=== PATIENT | female | born 1960 | race Caucasian/White ===

== ENCOUNTER → 2020-09-15 13:15 | Outpatient (BNVA) | payer MEDICAID, SELFPAY | PROVIDERS: PCP Internal Medicine; Visit Provider Surgery | DX: L98.9 Disorder of the skin and subcutaneous tissue, unspecified (principal); D68.59 Other primary thrombophilia; I10 Essential (primary) hypertension; F17.200 Nicotine dependence, unspecified, uncomplicated; Z79.4 Long term (current) use of insulin; Z79.899 Other long term (current) drug therapy | CPT/HCPCS: 99202 ==

== ENCOUNTER 2020-10-10 07:35 | Outpatient (REF) | payer MEDICAID, SELFPAY ==
[2020-10-10 07:50] VITALS: BP 155/77; PULSE 82; RESP 16; TEMP 36.6; O2SAT 99; BMI 40.2
--- NOTE | 2020-10-10 08:16 | P.OP_ITS ---
Operative Note Operative Note Date of Service: 10/10/20 Narrative: Preop diagnosis: Scalp lesion Postop diagnose: Scalp lesion Procedure: Excision of scalp lesion under local anesthesia Surgeon: Jayce Myers MD Patient is a 60 year female with note of a small, flat ulcerating lesion on the scalp at the parietal area. She wanted this removed. She understood the technique of excision under local anesthesia. She was aware of the risks, benefits, and alternatives She was brought to the minor procedure room and placed in reclining position with the head turned to the left to expose the area of the lesion. This was about a 0.8 cm flat, ulcerating lesion. This area was prepped and draped. Lidocaine 1% was used for local anesthesia. I made an elliptical incision around this lesion using a blade 15. This was carried down through the full- thickness of the skin subcutaneous fat excise the entire lesions was sent as specimen. I closed the incision with full-thickness nylon 3-0 interrupted sutures. Bacitracin dressings were then applied. The patient tolerated procedure well. There were no complication noted. Blood loss about 2 cc. The patient was given discharge instructions and will be seen in the office for removal sutures.
--- NOTE | 2020-10-10 08:18 | P.BOP_ITS ---
Brief Operative Note Date of Service: 10/10/20 Pre-op diagnosis: Scalp lesion Post-op diagnosis: same Procedure: Excision of scalp lesion under local anesthesia Surgeon: Jayce Myesr MD Anesthesia: local Was an Member Services Representative used for this Procedure?: No Estimated blood loss (mL): 2 Pathology: other (Scalp lesion) Condition: stable Disposition: other (Home)
== END 2020-10-10 07:36 | disposition home or self-care (01) ==
LOC: HO.MS 07:35
PROVIDERS: PCP Internal Medicine; Visit Provider Surgery
PROC: (CPT 11421; principal; 2020-10-10 08:00)
DX: L73.9 Follicular disorder, unspecified (principal); L81.9 Disorder of pigmentation, unspecified; E11.9 Type 2 diabetes mellitus without complications; I10 Essential (primary) hypertension; Z79.4 Long term (current) use of insulin; Z79.899 Other long term (current) drug therapy
CPT/HCPCS: 11421; 88305; 88312

== ENCOUNTER → 2020-10-24 10:08 | Outpatient (BNVA) | payer MEDICAID, SELFPAY | PROVIDERS: PCP Internal Medicine; Visit Provider Surgery | DX: Z48.817 Encounter for surgical aftercare following surgery on the skin and subcutaneous tissue (principal); Z87.2 Personal history of diseases of the skin and subcutaneous tissue | CPT/HCPCS: 99212 ==

== ENCOUNTER 2021-06-05 13:49 | Outpatient (REF) | payer MEDICAID, SELFPAY ==
--- NOTE | ~2021-06-05 | XR_ITS ---
EXAMINATION: XR SHOULDER, RIGHT CLINICAL INFORMATION: Pain in right shoulder. Concern for dislocation. COMPARISON: None TECHNIQUE: 4 views. of the right shoulder. FINDINGS: There is no fracture. No dislocation. The glenohumeral joint is normal. Normal acromioclavicular joint. Corticated osseous density adjacent to the greater tuberosity of the humerus measuring about 1.3 x 0.5 cm. Irregularity of the greater tuberosity of the humerus. Findings could be due to degenerative changes at the greater tuberosity with calcific tendinosis or bursitis versus old trauma with nonunited fracture fragment. XR/XR shoulder RT min 2V IMPRESSION: 1. No acute abnormality. 2. Old trauma versus degenerative change with calcific tendinosis/bursitis of the greater tuberosity of the humerus.
[2021-06-05 14:10] LABS: MANUAL DIFF FLAG NO
[2021-06-05 14:56] LABS: Basophils Absolute Auto 0.1 X10*3/uL (0.0-0.2); Basophils Percent Auto 0.6 % (0-2); Eosinophils Absolute Auto 0.2 X10*3/uL (0.0-0.4); Eosinophils Percent Auto 1.1 % (0-4); Hemoglobin 13.3 g/dl (12.0-16.0); Imm Gran Abs Auto 0.06 X10*3/uL (0.00-0.03); Imm Gran Pct Auto 0.4 % (0.0-0.4); Lymphocytes Absolute Auto 2.3 X10*3/uL (1.2-4.9); Lymphocytes Percent Auto 16.2 % (20-40); Mean Corpuscular HGB Conc 30.9 g/dl (31.0-35.0); Mean Corpuscular Hemoglobin 28.9 pg (27.0-33.0); Mean Corpuscular Volume 93.3 fL (80.0-98.0); Mean Platelet Volume 9.2 fL (9.4-12.3); Monocytes Absolute Auto 0.6 X10*3/uL (0.1-1.2); Monocytes Percent Auto 4.3 % (2-11); Neutrophils Absolute Auto 10.9 x10*3/uL (2.0-8.3); Neutrophils Percent Auto 77.4 % (45-73); Platelet Count 345 X10*3/uL (160-400); Red Blood Count 4.61 X10*6/uL (4.20-5.50); Red Cell Distribution Width 13.2 % (11.0-16.0); White Blood Count 14.1 X10*3/uL (4.8-10.8)
[2021-06-05 15:05] LABS: Estimated Average Glucose 126 mg/dL
[2021-06-05 15:18] LABS: Alanine Aminotransferase 13 U/L (0-31); Alkaline Phosphatase 93 U/L (39-117); Anion Gap 15 (12-20); Aspartate Amino Transferase 15 U/L (5-31); Bilirubin Total 0.3 mg/dL (0.0-1.0); Blood Urea Nitrogen 13 mg/dL (9-16); Calcium 9.8 mg/dL (8.4-10.2); Carbon Dioxide 22 mmol/L (22-29); Chloride 108 mmol/L (96-108); Cholesterol 181 mg/dL; Estimated Glomerular Filt Rate > 60; Glucose Random 205 mg/dL (60-115); HDL Cholesterol 36 mg/dL; LDL Cholesterol Calculated 104 mg/dl; Potassium 4.2 mmol/L (3.3-5.1); Sodium 141 mmol/L (135-145); Total Protein 7.2 g/dL (6.5-8.0); Triglycerides 208 mg/dL
== END 2021-06-05 13:50 | disposition home or self-care (01) ==
LOC: HO.LAB 13:49
PROVIDERS: PCP Internal Medicine; Visit Provider Internal Medicine
DX: Z00.01 Encounter for general adult medical examination with abnormal findings (principal); M25.511 Pain in right shoulder; E11.9 Type 2 diabetes mellitus without complications; E78.00 Pure hypercholesterolemia, unspecified; G47.33 Obstructive sleep apnea (adult) (pediatric); G57.11 Meralgia paresthetica, right lower limb
CPT/HCPCS: 36415; 73030; 80053; 80061; 83036; 85025

== ENCOUNTER 2022-01-09 11:39 | Outpatient (REF) | payer MEDICAID, SELFPAY ==
[2022-01-09 15:55] LABS: Creatinine Urine 26.61 mg/dL; Microalbumin Urine < 5.0 mg/L
== END 2022-01-09 11:40 | disposition home or self-care (01) ==
LOC: HO.10HDL 11:39
PROVIDERS: Visit Provider Internal Medicine
DX: D68.59 Other primary thrombophilia (principal); E11.9 Type 2 diabetes mellitus without complications; I10 Essential (primary) hypertension; I45.81 Long QT syndrome
CPT/HCPCS: 82043

== ENCOUNTER 2022-01-26 10:21 | Outpatient (RCR) | payer MEDICAID, SELFPAY | END 2022-02-27 11:55 | disposition home or self-care (01) | LOC: HO.WCC 10:21 | PROVIDERS: PCP Internal Medicine; Visit Provider Physician Assistant | DX: T21.21XA Burn of second degree of chest wall, initial encounter (principal); E11.9 Type 2 diabetes mellitus without complications; I10 Essential (primary) hypertension; T31.0 Burns involving less than 10% of body surface; Z87.891 Personal history of nicotine dependence; Z86.718 Personal history of other venous thrombosis and embolism | CPT/HCPCS: 99212; 99213; 99214 ==

== ENCOUNTER 2022-07-16 09:51 | Outpatient (REF) | payer MEDICAID, SELFPAY ==
--- NOTE | ~2022-07-16 | XR_ITS ---
EXAMINATION: XR HIP, RIGHT CLINICAL INFORMATION: Osteoarthritis COMPARISON: None available. TECHNIQUE: Two views of the right hip. FINDINGS: Visualized portion of the proximal right femur demonstrate no fracture. Right femoral head is well-seated within the acetabulum. Right femoral acetabular joint space is relatively well-maintained. Small osteophytes are noted along the superolateral acetabular margin. Mild hypertrophic changes of the greater trochanter. Partially visualized IVC filter. XR/XR hip RT min 2V IMPRESSION: Mild degenerative changes of the right hip without fracture or dislocation.
== END 2022-07-16 09:52 | disposition home or self-care (01) ==
LOC: HO.XRAY 09:51
PROVIDERS: PCP Internal Medicine; Visit Provider Internal Medicine
DX: M16.11 Unilateral primary osteoarthritis, right hip (principal)
CPT/HCPCS: 73502

== ENCOUNTER → 2022-08-16 13:51 | Outpatient (BNVA) | payer MEDICAID, SELFPAY | PROVIDERS: PCP Internal Medicine; Referring Provider Internal Medicine; Visit Provider Surgery | DX: Z01.818 Encounter for other preprocedural examination (principal); L98.9 Disorder of the skin and subcutaneous tissue, unspecified | CPT/HCPCS: 99212 ==

== ENCOUNTER 2022-08-27 14:18 | Outpatient (REF) | payer MEDICAID, SELFPAY | END 2022-08-27 14:19 | disposition home or self-care (01) | LOC: HO.LNP 14:18 | PROVIDERS: PCP Internal Medicine; Visit Provider Surgery | DX: L98.9 Disorder of the skin and subcutaneous tissue, unspecified (principal) | CPT/HCPCS: 11421; 88304; 88305 ==

== ENCOUNTER → 2022-09-10 09:30 | Outpatient (BNVA) | payer MEDICAID, SELFPAY | PROVIDERS: PCP Internal Medicine; Visit Provider Surgery ==

== ENCOUNTER 2022-12-28 09:36 | Outpatient (AMB) | payer MEDICAID, SELFPAY ==
--- NOTE | 2022-12-28 09:55 | A.OFFVIS_ITS ---
Intake Intake Visit Reasons: Urinary incontinence Intake Note: New Patient presents for initial visit for urinary incontinence Urology Medications: oxybutynin (pt stated not helping) Blood Thinner: none PVR: 64ml's Security System Technician Required: No Accompanied by: Self / Same As Patient Allergies aspirin Allergy (Verified 12/30/22 21:12) Unknown warfarin Allergy (Verified 12/30/22 21:12) Unknown metformin Adverse Reaction (Severe, Verified 12/30/22 21:12) Diarrhea Medication List - Last Reconciled 12/30/22 by JERRY Mehta- albuterol sulfate 90 mcg/actuation (Ventolin HFA) 2 puffs inhalation QID amitriptyline 25 - 50 mg PO BEDTIME amlodipine 5 mg PO DAILY empagliflozin (Jardiance) 25 mg PO DAILY exenatide microspheres ER (Bydureon BCise) 2 mg subcut QWEEK furosemide 20 mg PO DAILY gabapentin mg PO insulin glargine (Lantus Solostar U-100 Insulin) 10 units subcut BID insulin lispro (Humalog KwikPen (U-100) Insulin) 12 units subcut TID insulin regular human (Novolin R FlexPen) 12 units subcut TID lancets (FreeStyle Lancets) As directed lisinopril 40 mg PO DAILY loperamide 0 mg PO metoprolol succinate ER 50 mg PO DAILY mirabegron ER (Myrbetriq) 25 mg PO DAILY 30 days pregabalin 75 mg PO BID rosuvastatin 40 mg PO BEDTIME sitagliptin phosphate (Januvia) 100 mg PO DAILY tramadol 50 mg PO BID PRN trazodone 50 - 100 mg PO BEDTIME PRN venlafaxine ER 150 mg PO QAM venlafaxine ER 0 mg PO HPI HPI Comments History of Present Illness Details Charo is a very pleasant 62-year-old female patient of Dr. Palmer. She has a past medical history of DVT, hypertension, and diabetes mellitus. In discussion with the patient today she reports to be doing and fee ling well. She reports noting over the last 1-2 years to be having mixed urinary incontinence. She reports having been started on oxybutynin with her primary care however does not feel this has helped with any of her lower urinary tract symptoms. She reports noting sensed and on sensed urinary incontinence. She reports urinary urgency and frequency with episodes of incontinence if not near a bathroom. She otherwise denies hematuria, dysuria, foul smelling urine, changes to urinary stream, flank pain, fever, and or chills. In office urinalysis results reviewed with the patient today. PVR 64 mL. Discussed obtaining retroperitoneal ultrasound for further assessment evaluation. Discussed at length importance of managing diabetes for improvement in lower urinary tract symptoms. FORMERLY [facility] Medical History Scalp lesion DVT (deep venous thrombosis) Hypercoagulable state Hypertension Diabetes mellitus Surgical History History of surgical removal of lesion (~08/27/22) History of excision of lesion History of rotator cuff surgery History of cholecystectomy Family History Maternal Grandmother Breast cancer Sister Breast cancer Social History Alcohol intake: never Patient Tobacco Use Status: Current someday Tobacco user Review of Systems Const All systems reviewed & are unremarkable except as noted in HPI and below Reports as per HPI Eyes Reports no additional complaints ENT Reports no additional complaints Card Reports no additional complaints Resp Reports no additional complaints GI Reports no additional complaints Reports as per HPI Musc Reports no additional complaints Neuro Reports no additional complaints Psych Reports no additional complaints Endo Reports no additional complaints Jose Raul/Lymph Reports as per HPI Physical Exam Const General: cooperative, comfortable, no acute distress, well developed, alert and awake Orientation/consciousness: patient oriented x3 HEENT Head: Yes normal to inspection, Yes normocephalic and Yes atraumatic Ears: hearing grossly normal bilaterally Eyes General: appearance normal, both eyes and all related structures Neck Neck: Yes normal visual inspection and Yes trachea midline Chest Chest palpation & inspection: normal inspection of the chest Resp Effort & Inspection: normal respiratory effort and able to speak in complete sentences Cardio Rate: regular rate GI Inspection: Yes normal to inspection General: Yes no CVA tenderness Back/Spine/Pelvis Back: no CVA tenderness Skin General skin exam: no rashes or lesions noted Neuro General: patient oriented x3 Extrem General: Yes normal to inspection Psych Appearance: grossly normal and well kempt Mental Status: mental status grossly normal Speech and movement: Normal speech and movement present and Clear speech present Affect: normal affect Attitude: cooperative Thought process: Normal thought process present Thought content: Normal thought content present Insight: Fair insight present (Psych) Judgement: Fair judgement present (Psych) Office Procedures Post Void Residual Post Residual Void Post Void Residual (PVR): [id number] Void Residual by ultrasound Results AMB Urinalysis, Automated UA Leukoctes 0 Onesimo/uL Last Edit by [employer] on 12/28/22 10:18 UA Nitrite Negative Last Edit by [employer] on 12/28/22 10:18 UA Urobilinogen 0.2 mg/dL Last Edit by [employer] on 12/28/22 10:18 UA Protein 0 mg/dL Last Edit by [employer] on 12/28/22 10:18 UA pH 5.5 Last Edit by [employer] on 12/28/22 10:18 UA Blood 0 Ganga/uL Last Edit by [employer] on 12/28/22 10:18 UA Specific [place] 1.015 Last Edit by [employer] on 12/28/22 10:18 UA Ketone Negative Last Edit by [employer] on 12/28/22 10:18 UA Bilirubin 0 mg/dL Last Edit by [employer] on 12/28/22 10:18 UA Glucose 1000 mg/dL Last Edit by [employer] on 12/28/22 10:18 Results Reviewed Results Reviewed: Laboratory Last Values Urine pH (Auto) 5.5 12/28/22 10:00 Specific [place] (Auto) 1.015 12/28/22 10:00 Urine Protein (Auto) 0 mg/dL 12/28/22 10:00 Glucose (UA)(Auto) 1000 mg/dL 12/28/22 10:00 Urine Ketones (Auto) Negative 12/28/22 10:00 Urine Blood (Auto) 0 Ganga/uL 12/28/22 10:00 Urine Nitrite (Auto) Negative 12/28/22 10:00 Urine Bilirubin (Auto) 0 mg/dL 12/28/22 10:00 Urine Urobilinogen (Auto) 0.2 mg/dL 12/28/22 10:00 Leukocyte Esterase (Auto) 0 Onesimo/uL 12/28/22 10:00 Assessment & Plan Assessment & Plan (1) Mixed incontinence urge and stress: Code(s): N39.46 - Mixed incontinence (2) Lower urinary tract symptoms: Code(s): R39.9 - Unspecified symptoms and signs involving the genitourinary system Plan In office urinalysis results reviewed with the patient today; as noted above. PVR 64 mL. Discussed at length bladder triggers/irritants. Discussed importance of scheduled toileting as well as bathroom planning Discussed importance of managing diabetes for improvement in lower urinary tract symptoms as well as overall health and well-being. Discussed weight loss in correlation to extra weight putting pressure on the bladder making incontinence more likely. Stop oxybutynin as discussed. Start Myrbetriq as discussed and prescribed. Will obtain retroperitoneal ultrasound for further assessment evaluation. Follow-up in 6-8 weeks with imaging to be completed prior and PVR at next office visit; or sooner with any issues, concerns, and or questions. Orders: Orders AMB Urinalysis Automated 12/28/22 Z13.9 - Encounter for screening, unspecified US retroperitoneal comp 12/28/22 N39.46 - Mixed incontinence AMB Post Void Residual by ultrasound 12/28/22 Z13.9 - Encounter for screening, unspecified Medications: New mirabegron ER (Myrbetriq) 25 mg PO DAILY 30 days 30 tabs 1RF N30.10 - Interstitial cystitis (chronic) without hematuria, N32.81 - Overactive bladder, R35.1 - Nocturia, R39.15 - Urgency of urination Patient Instructions: The patient had an opportunity to ask questions regarding the treatment plan. All questions were answered. Physical exam, labs, and imaging were discussed and reviewed in detail. As well as risks, benefits, and discussion of treatment choices. No major barriers to understanding were identified. The patient expressed understanding and agreement with the above treatment plan. The patient was made aware they should contact our office by phone for worsening of their current condition, the appearance of new symptoms, or with any questions or concerns. Compliance is encouraged with any medications and follow up testing that is ordered. It is a privilege to be allowed the opportunity to participate in? your urological care.? Again, if you have any questions or concerns If you have any questions or concerns please do not hesitate to contact me. The office is [phone]. This note is constructed using voice recognition software. While every effort has been made to ensure accuracy olive grader errors may have been included. Yours sincerely, JERRY Mehta-KERLINE Coding Level of Care Code New Pt Level 4 (84801) Diagnoses Mixed incontinence urge and stress N39.46 Lower urinary tract symptoms R39.9 CPT Codes Post Residual Void - PVR CPT Code: 21153-Xujg Void Residual by ultrasound ([id number])
== END 2022-12-28 10:28 | disposition home or self-care (01) ==
PROVIDERS: PCP Internal Medicine; Referring Provider Internal Medicine; Visit Provider Nurse Practitioner Family
DX: N39.46 Mixed incontinence (principal); R39.9 Unspecified symptoms and signs involving the genitourinary system
CPT/HCPCS: 99204

== ENCOUNTER → 2022-12-28 09:36 | Outpatient (BNVA) | payer MEDICAID, SELFPAY | PROVIDERS: PCP Internal Medicine; Referring Provider Internal Medicine; Visit Provider Nurse Practitioner Family | DX: N39.46 Mixed incontinence (principal); R39.9 Unspecified symptoms and signs involving the genitourinary system; E11.9 Type 2 diabetes mellitus without complications | CPT/HCPCS: 51798; 81003; 99212 ==

== ENCOUNTER 2023-01-02 11:25 | Outpatient (AMB) | payer MEDICAID, SELFPAY ==
--- NOTE | 2023-01-02 11:58 | A.OFFVIS_ITS ---
Intake Vital Signs 01/02/23 12:03 BP 148/73 H Blood Pressure Location Rt brachial Position Sitting Pulse 94 Intake Visit Reasons: scalp lesion Intake Note: This patient presents for an assessment for recurrent scalp lesion. Patient c/o; reports another scalp lesion. 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 Accompanied by: Self / Same As Patient Allergies aspirin Allergy (Verified 01/02/23 12:04) Unknown warfarin Allergy (Verified 01/02/23 12:04) Unknown metformin Adverse Reaction (Severe, Verified 01/02/23 12:04) Diarrhea Medication List - Last Reconciled 01/02/23 by Jayce Myers MD albuterol sulfate 90 mcg/actuation (Ventolin HFA) 2 puffs inhalation QID amitriptyline 25 - 50 mg PO BEDTIME amlodipine 5 mg PO DAILY empagliflozin (Jardiance) 25 mg PO DAILY exenatide microspheres ER (Bydureon BCise) 2 mg subcut QWEEK furosemide 20 mg PO DAILY gabapentin mg PO insulin glargine (Lantus Solostar U-100 Insulin) 10 units subcut BID insulin lispro (Humalog KwikPen (U-100) Insulin) 12 units subcut TID insulin regular human (Novolin R FlexPen) 12 units subcut TID lancets (FreeStyle Lancets) As directed lisinopril 40 mg PO DAILY loperamide 0 mg PO metoprolol succinate ER 50 mg PO DAILY mirabegron ER (Myrbetriq) 25 mg PO DAILY 30 days pregabalin 75 mg PO BID rosuvastatin 40 mg PO BEDTIME sitagliptin phosphate (Januvia) 100 mg PO DAILY tramadol 50 mg PO BID PRN trazodone 50 - 100 mg PO BEDTIME PRN venlafaxine ER 150 mg PO QAM venlafaxine ER 0 mg PO HPI scalp lesion HPI Details She is here because of a ?scalp lesion?. She says that about 1 week ago compound she had noted an area of tenderness and pain on the scalp while combing her hair. She says that this seemed to be red and she call the office to be seen as she has a history of excision of multiple cysts in the past on the scalp. [facility]LY [facility] Medical History (Updated 01/02/23 @ 12:10 by Jayce Myers MD) Scalp irritation Scalp lesion DVT (deep venous thrombosis) Hypercoagulable state Hypertension Diabetes mellitus Surgical History History of surgical removal of lesion (~08/27/22) History of excision of lesion History of rotator cuff surgery History of cholecystectomy Family History Maternal Grandmother Breast cancer Sister Breast cancer Social History Alcohol intake: never Patient Tobacco Use Status: Current someday Tobacco user Review of Systems Const Denies chills and Denies fever(s) Card Denies chest pain, Denies dyspnea and Denies dyspnea on exertion Resp Denies cough, Denies dyspnea and Denies dyspnea on exertion GI Denies hematochezia and Denies change in bowel habits Denies hematuria Musc Denies back pain and Denies limited range of motion Neuro Denies focal weakness and Denies convulsions Psych Denies depression and Denies mood swings Physical Exam Vital Signs: Last Vital Signs Pulse 94 01/02/23 12:03 BP 148/73 H 01/02/23 12:03 Const General: comfortable and no acute distress Orientation/consciousness: patient oriented x3 HEENT Other: On the right temporal side of the scalp, she points to small area of redness, with no palpable mass or induration. There is no discharge. There seemed to be some dermatitic changes. Neck Neck: Yes no lymphadenopathy Resp Auscultation: clear to auscultation bilaterally Cardio Rhythm: regular rhythm GI Palpation (GI): Soft to palpation, nontender and no guarding Neuro General: patient oriented x3 Assessment & Plan Assessment & Plan (1) Scalp irritation: Code(s): R23.8 - Other skin changes Plan: Current exam does not reveal any lesion or induration. There is some area of redness that seems to suggest some dermatitis. I told her that we would not scheduled her for any excision at this time but I will see her again in the office about 3 weeks so we can re-examine the area. I feel that this anus will resolve on its own. She is comfortable with the plan. Coding Level of Care Code Est Pt Level 3 (28792) Diagnoses Scalp irritation R23.8
[2023-01-02 12:03] VITALS: BP 148/73; PULSE 94
== END 2023-01-02 12:08 | disposition home or self-care (01) ==
PROVIDERS: PCP Internal Medicine; Visit Provider Surgery
DX: R23.8 Other skin changes (principal)
CPT/HCPCS: 99213

== ENCOUNTER → 2023-01-02 11:25 | Outpatient (BNVA) | payer MEDICAID, SELFPAY | PROVIDERS: PCP Internal Medicine; Visit Provider Surgery | DX: R23.8 Other skin changes (principal) | CPT/HCPCS: 99212 ==

== ENCOUNTER 2023-01-23 09:16 | Outpatient (AMB) | payer MEDICAID, SELFPAY ==
[2023-01-23 10:03] VITALS: BP 125/59; PULSE 96; O2SAT 95; BMI 45.5
--- NOTE | 2023-01-23 10:03 | A.OFFVIS_ITS ---
Intake Vital Signs 01/23/23 10:03 Height 5 ft 2 in Weight 248 lb 10.903 oz BMI 45.5 BP 125/59 L Blood Pressure Location Rt brachial Position Sitting Pulse 96 Pulse Source Pulse Oximeter Pulse Oximetry (%) 95 Oxygen Delivery Method Room Air Intake Visit Reasons: 3 wks f/u scalp lesion Intake Note: Pt presents to the office today for a 3 week follow up scalp lesion. Pt states she has 2 lesions now one on each side of her head. Pt states they are mainly painful when she touches them or brushes her hair. Pt denies any discharge from the lesions or any signs of infection at this time. Allergies aspirin Allergy (Verified 01/23/23 10:06) Unknown warfarin Allergy (Verified 01/23/23 10:06) Unknown metformin Adverse Reaction (Severe, Verified 01/23/23 10:06) Diarrhea Medication List - Last Reconciled 01/23/23 by Jayce Myers MD albuterol sulfate 90 mcg/actuation (Ventolin HFA) 2 puffs inhalation QID amitriptyline 25 - 50 mg PO BEDTIME amlodipine 5 mg PO DAILY empagliflozin (Jardiance) 25 mg PO DAILY exenatide microspheres ER (Bydureon BCise) 2 mg subcut QWEEK furosemide 20 mg PO DAILY gabapentin mg PO insulin glargine (Lantus Solostar U-100 Insulin) 10 units subcut BID insulin lispro (Humalog KwikPen (U-100) Insulin) 12 units subcut TID insulin regular human (Novolin R FlexPen) 12 units subcut TID lancets (FreeStyle Lancets) As directed lisinopril 40 mg PO DAILY loperamide 0 mg PO metoprolol succinate ER 50 mg PO DAILY mirabegron ER (Myrbetriq) 25 mg PO DAILY 30 days pregabalin 75 mg PO BID rosuvastatin 40 mg PO BEDTIME trazodone 50 - 100 mg PO BEDTIME PRN venlafaxine ER 150 mg PO QAM venlafaxine ER 0 mg PO HPI 3 wks f/u scalp lesion HPI Details She is here for follow-up for scalp lesions. She points to 2 areas of her scalp that feel irritated. She feels a small lump on the left side of the parietal area She denies any discharge. [facility] Medical History Scalp irritation Scalp lesion DVT (deep venous thrombosis) Hypercoagulable state Hypertension Diabetes mellitus Surgical History History of surgical removal of lesion (~08/27/22) History of excision of lesion History of rotator cuff surgery History of cholecystectomy Family History Maternal Grandmother Breast cancer Sister Breast cancer Social History Household Members: Significant Other Housing: Apartment Alcohol intake: never Patient Tobacco Use Status: Former Tobacco user Use of substances other than those prescribed or required for medical reasons: Yes Substance Use Type: Marijuana Current occupational status: disabled Review of Systems Const Denies chills and Denies fever(s) Card Denies chest pain, Denies dyspnea and Denies dyspnea on exertion Resp Denies cough, Denies dyspnea and Denies dyspnea on exertion GI Denies hematochezia and Denies change in bowel habits Denies hematuria Musc Denies back pain and Denies limited range of motion Neuro Denies focal weakness and Denies convulsions Psych Denies depression and Denies mood swings Physical Exam Vital Signs: Last Vital Signs Pulse 96 01/23/23 10:03 BP 125/59 L 01/23/23 10:03 Pulse Ox 95 01/23/23 10:03 Oxygen Delivery Method Room Air 01/23/23 10:03 BMI result Body Mass Index 45.5 Const Other: Looks well General: comfortable and no acute distress HEENT Other: the area of the scalp on the right side at the parietal region with note of a s mall dermatitic area about .5 cm in diameter with no mass. On the left parietal area is note of a palpable cystic mass, about 3 mm in size, mobile, well-defined Resp Effort & Inspection: normal respiratory effort Cardio Rate: regular rate Assessment & Plan Assessment & Plan (1) Scalp lesion: Code(s): L98.9 - Disorder of the skin and subcutaneous tissue, unspecified Plan: There is note of an area of irritation on the right scalp region and a small scalp cyst on the left. The scalp cyst is very small at this time. I told her that if these measures are more or becomes bigger, she should come back to the office so we can consider option of excising this. She is comfortable with this plan She does not require any surgical procedure for the dermatitic area on the right parietal region. Coding Level of Care Code Est Pt Level 3 (67990) Diagnoses Scalp lesion L98.9
== END 2023-01-23 10:22 | disposition home or self-care (01) ==
PROVIDERS: PCP Internal Medicine; Visit Provider Surgery
DX: L98.9 Disorder of the skin and subcutaneous tissue, unspecified (principal)
CPT/HCPCS: 99213

== ENCOUNTER → 2023-01-23 09:16 | Outpatient (BNVA) | payer MEDICAID, SELFPAY | PROVIDERS: PCP Internal Medicine; Visit Provider Surgery | DX: L98.9 Disorder of the skin and subcutaneous tissue, unspecified (principal) | CPT/HCPCS: 99212 ==

== ENCOUNTER 2023-03-20 16:01 | Outpatient (REF) | payer MEDICAID, SELFPAY ==
--- NOTE | ~2023-03-20 | US_ITS ---
EXAMINATION: US RETROPERITONEAL COMPLETE (RENAL) CLINICAL INFORMATION: Mixed incontinence. COMPARISON: None available. TECHNIQUE: Real-time imaging of the kidneys and bladder. FINDINGS: RIGHT KIDNEY: 10.3 x 5.9 x 5.9 cm (SAG x AP x TRV). The kidney is normal in size, contour, and echogenicity. Renal cortical thickness is normal. No renal calculi or hydronephrosis. There is a 17 x 16 x 14 mm cyst in the lower pole the right kidney, for which no specific imaging follow-up is needed. LEFT KIDNEY: 11.7 x 5.9 x 5.0 cm (SAG x AP x TRV). The kidney is normal in size, contour, and echogenicity. Renal cortical thickness is normal. No calculi or focal parenchymal lesions. No hydronephrosis. BLADDER: Well distended and normal. Bilateral ureteral jets are demonstrated. Prevoid bladder volume is 152 mL. Postvoid bladder volume is 7 mL. US/US retroperitoneal comp IMPRESSION: Unremarkable renal ultrasound..
== END 2023-03-20 16:02 | disposition home or self-care (01) ==
LOC: HO.US 16:01
PROVIDERS: PCP Internal Medicine; Visit Provider Nurse Practitioner Family
DX: N39.46 Mixed incontinence (principal)
CPT/HCPCS: 76770

== ENCOUNTER 2023-04-15 09:42 | Outpatient (REF) | payer MEDICAID, SELFPAY ==
--- NOTE | ~2023-04-15 | XR_ITS ---
EXAMINATION: XR KNEE, LEFT CLINICAL INFORMATION: Left knee osteoarthritis COMPARISON: None available. TECHNIQUE: AP and lateral views of the left knee. FINDINGS: BONES: Bony structures are intact. There is no focal bone destruction or periosteal reaction seen. JOINTS: Alignment of joints is normal. SOFT TISSUE: Soft tissue is normal. No radiopaque foreign body or abnormal air collection is seen. XR/XR knee LT 2V IMPRESSION: 1. Normal x-rays of left knee. No fracture or dislocation or signs of osteomyelitis are found.
== END 2023-04-15 09:43 | disposition home or self-care (01) ==
LOC: HO.XRAY 09:42
PROVIDERS: PCP Internal Medicine; Visit Provider Internal Medicine
DX: M17.12 Unilateral primary osteoarthritis, left knee (principal)
CPT/HCPCS: 73560

== ENCOUNTER 2023-04-19 09:12 | Outpatient (AMB) | payer MEDICAID, SELFPAY ==
--- NOTE | 2023-04-19 09:20 | MHC.OFFVIS ---
Intake Intake Visit Reasons: 6w/US(set) Intake Note: Patient presents for follow up visit for urinary incontinence and ultrasound follow up Imagin03/20/23 Urology Medications: D/C Oxybutynin, Myrbetriq Blood Thinner: none PVR: 0ml Family Services Manager Required: No Accompanied by: Self / Same As Patient Allergies aspirin Allergy (Verified 04/19/23 10:03) Unknown warfarin Allergy (Verified 04/19/23 10:03) Unknown metformin Adverse Reaction (Severe, Verified 04/19/23 10:03) Diarrhea Medication List - Last Reconciled 04/19/23 by JERRY Mehta- albuterol sulfate 90 mcg/actuation (Ventolin HFA) 2 puffs inhalation QID amitriptyline 25 - 50 mg PO BEDTIME amlodipine 5 mg PO DAILY empagliflozin (Jardiance) 25 mg PO DAILY exenatide microspheres ER (Bydureon BCise) 2 mg subcut QWEEK gabapentin mg PO insulin glargine (Lantus Solostar U-100 Insulin) 10 units subcut BID insulin lispro (Humalog KwikPen (U-100) Insulin) 12 units subcut TID insulin regular human (Novolin R FlexPen) 12 units subcut TID lancets (FreeStyle Lancets) As directed lisinopril 40 mg PO DAILY loperamide 0 mg PO metoprolol succinate ER 100 mg PO DAILY mirabegron ER (Myrbetriq) 50 mg (2 x 25 mg) PO DAILY 30 days rosuvastatin 40 mg PO BEDTIME trazodone 50 - 100 mg PO BEDTIME PRN venlafaxine ER 150 mg PO QAM venlafaxine ER 0 mg PO HPI HPI Comments History of Present Illness Details Charo is a very pleasant 62-year-old female patient of Dr. Palmer. She has a past medical history of DVT, hypertension, and diabetes mellitus. She presents to the office today for follow-up of her mixed urinary incontinence. Of note, patient was seen approximately 4 months ago at which time oxybutynin was discontinued and she was started on Myrbetriq 25 mg daily. A retroperitoneal ultrasound was ordered for further assessment evaluation. These results reviewed with the patient today. Bilateral kidneys with no calculi or hydronephrosis. There is a 17 x 16 x 14 mm cyst in the lower pole the right kidney, for which no specific imaging follow-up is needed per radiology report. The bladder is well distended and normal. Bilateral ureteral jets are demonstrated. Pre void bladder volume is approximately 150 mL. Postvoid bladder volume is approximately 10 mL. In discussion with the patient today she reports to be doing and feeling well. She reports significant improvement in mixed urinary incontinence. She reports she continues with episodes of urinary incontinence when at her daughter's as she needs to climb stairs to reach the bathroom where as when she is at home she notes no incontinent episodes. She otherwise denies hematuria, dysuria, foul smelling urine, changes to urinary stream, flank pain, fever, and or chills. In office urinalysis results reviewed with the patient today. PVR 0 mL. Discussed at length importance of managing diabetes for improvement in lower urinary tract symptoms. [facility] Medical History Scalp irritation Scalp lesion DVT (deep venous thrombosis) Hypercoagulable state Hypertension Diabetes mellitus Surgical History History of surgical removal of lesion (~08/27/22) History of excision of lesion History of rotator cuff surgery History of cholecystectomy Family History Maternal Grandmother Breast cancer Sister Breast cancer Social History Household Members: Significant Other Housing: Apartment Alcohol intake: never Patient Tobacco Use Status: Former Tobacco user Substance Use Type: Marijuana Current occupational status: disabled Review of Systems Const All systems reviewed & are unremarkable except as noted in HPI and below Denies chills and Denies fever(s) Eyes Reports no additional complaints ENT Reports no additional complaints Card Denies chest pain, Denies dyspnea and Denies dyspnea on exertion Resp Denies cough, Denies dyspnea and Denies dyspnea on exertion GI Denies hematochezia and Denies change in bowel habits Denies hematuria Musc Denies back pain and Denies limited range of motion Neuro Denies focal weakness and Denies convulsions Psych Denies depression and Denies mood swings Endo Reports no additional complaints Jose Raul/Lymph Reports as per HPI Physical Exam Const General: cooperative, comfortable, no acute distress, well developed, alert and awake Nutritional Appearance: overweight Orientation/consciousness: patient oriented x3 Limitations: no limitations HEENT Head: Yes normal to inspection, Yes normocephalic and Yes atraumatic Ears: hearing grossly normal bilaterally Eyes General: appearance normal, both eyes and all related structures Neck Neck: Yes normal visual inspection and Yes trachea midline Chest Chest palpation & inspection: normal inspection of the chest Resp Effort & Inspection: normal respiratory effort and able to speak in complete sentences Cardio Rate: regular rate GI Inspection: Yes normal to inspection General: Yes no CVA tenderness Back/Spine/Pelvis Back: no CVA tenderness Skin General skin exam: no rashes or lesions noted Neuro General: patient oriented x3 Extrem General: Yes normal to inspection Psych Appearance: grossly normal and well kempt Mental Status: mental status grossly normal Speech and movement: Normal speech and movement present and Clear speech present Affect: normal affect Attitude: cooperative Thought process: Normal thought process present Thought content: Normal thought content present Insight: Fair insight present (Psych) Judgement: Fair judgement present (Psych) Office Procedures Post Void Residual Post Residual Void Post Void Residual (PVR): 0 40016-Miig Void Residual by ultrasound Results AMB Urinalysis, Automated UA Leukoctes 0 Onesimo/uL Last Edit by Marcelle Dueñaseddie Dueñas [facility] on 04/19/23 09:32 UA Nitrite Negative Last Edit by Marcelle Dueñas [facility] on 04/19/23 09:32 UA Urobilinogen 0.2 mg/dL Last Edit by Marcelle Dueñas [facility] on 04/19/23 09:32 UA Protein 0 mg/dL Last Edit by Marcelle Dueñaseddie Dueñas [facility] on 04/19/23 09:32 UA pH 6.0 Last Edit by Marcelle Dueñaseddie Dueñas [facility] on 04/19/23 09:32 UA Blood 0 Ganga/uL Last Edit by Marcelle Dueñaseddie Dueñas [facility] on 04/19/23 09:32 UA Specific Lyman 1.015 Last Edit by Marcelle Dueñaseddie Dueñas [facility] on 04/19/23 09:32 UA Ketone Positive Last Edit by Marcelle Dueñaseddie Dueñas [facility] on 04/19/23 09:32 5mg/dl Marcelle Dueñas 04/19/23 09:32 UA Bilirubin 0 mg/dL Last Edit by Marcelle Dueñas CMA on 04/19/23 09:32 UA Glucose 1000 mg/dL Last Edit by Marcelle Dueñas CMA on 04/19/23 09:32 Results Reviewed Results Reviewed: Laboratory Last Values Urine pH (Auto) 6.0 04/19/23 09:20 Specific Lyman (Auto) 1.015 04/19/23 09:20 Urine Protein (Auto) 0 mg/dL 04/19/23 09:20 Glucose (UA)(Auto) 1000 mg/dL 04/19/23 09:20 Urine Ketones (Auto) Positive 04/19/23 09:20 Urine Blood (Auto) 0 Ganga/uL 04/19/23 09:20 Urine Nitrite (Auto) Negative 04/19/23 09:20 Urine Bilirubin (Auto) 0 mg/dL 04/19/23 09:20 Urine Urobilinogen (Auto) 0.2 mg/dL 04/19/23 09:20 Leukocyte Esterase (Auto) 0 Onesimo/uL 04/19/23 09:20 Date of Service: 03/20/23 EXAMINATION: US RETROPERITONEAL COMPLETE (RENAL) FINDINGS: RIGHT KIDNEY: 10.3 x 5.9 x 5.9 cm (SAG x AP x TRV). The kidney is normal in size, contour, and echogenicity. Renal cortical thickness is normal. No renal calculi or hydronephrosis. There is a 17 x 16 x 14 mm cyst in the lower pole the right kidney, for which no specific imaging follow-up is needed. LEFT KIDNEY: 11.7 x 5.9 x 5.0 cm (SAG x AP x TRV). The kidney is normal in size, contour, and echogenicity. Renal cortical thickness is normal. No calculi or focal parenchymal lesions. No hydronephrosis. BLADDER: Well distended and normal. Bilateral ureteral jets are demonstrated. Prevoid bladder volume is 152 mL. Postvoid bladder volume is 7 mL. IMPRESSION: Unremarkable renal ultrasound Assessment & Plan Assessment & Plan (1) Mixed incontinence urge and stress: Code(s): N39.46 - Mixed incontinence (2) Renal cyst: Code(s): N28.1 - Cyst of kidney, acquired Plan In office urinalysis results reviewed with the patient today; as noted above. PVR 0 mL. Recent retroperitoneal ultrasound results reviewed with the patient today. She reports improvement in mixed urinary incontinence will increase to 50 mg daily as discussed and prescribed. Discussed at bladder triggers/irritants. Discussed importance of scheduled toileting as well as bathroom planning Discussed importance of managing diabetes for improvement in lower urinary tract symptoms as well as overall health and well-being. Discussed weight loss in correlation to extra weight putting pressure on the bladder making incontinence more likely. Discussed possible dual therapy with [facility]Icare however will increase Myrbetriq as patient does report improvement. Discussed possible near future in office cystoscopy and or urodynamics for further assessment evaluation if symptoms persist and/or worsen. Follow-up in 1 month; or sooner with any issues, concerns, and or questions. Orders: Orders AMB Urinalysis Automated Today R33.9 - Retention of urine, unspecified AMB Post Void Residual by ultrasound Today R33.9 - Retention of urine, unspecified Medications: Changed From mirabegron ER (Myrbetriq) 25 mg PO DAILY 30 days 30 tabs 1RF N30.10 - Interstitial cystitis (chronic) without hematuria, N32.81 - Overactive bladder, R35.1 - Nocturia, R39.15 - Urgency of urination To mirabegron ER (Myrbetriq) 50 mg (2 x 25 mg) PO DAILY 30 days 60 tabs 1RF N30.10 - Interstitial cystitis (chronic) without hematuria, N32.81 - Overactive bladder, R35.1 - Nocturia, R39.15 - Urgency of urination Patient Instructions: The patient had an opportunity to ask questions regarding the treatment plan. All questions were answered. Physical exam, labs, and imaging were discussed and reviewed in detail. As well as risks, benefits, and discussion of treatment choices. No major barriers to understanding were identified. The patient expressed understanding and agreement with the above treatment plan. The patient was made aware they should contact our office by phone for worsening of their current condition, the appearance of new symptoms, or with any questions or concerns. Compliance is encouraged with any medications and follow up testing that is ordered. It is a privilege to be allowed the opportunity to participate in? your urological care.? Again, if you have any questions or concerns If you have any questions or concerns please do not hesitate to contact me. The office is [phone]. This note is constructed using voice recognition software. While every effort has been made to ensure accuracy corporate lawyer errors may have been included. Yours sincerely, JERRY Mehta-KERLINE Coding Level of Care Code Est Pt Level 3 (40198) Diagnoses Mixed incontinence urge and stress N39.46 Renal cyst N28.1 CPT Codes Post Residual Void - PVR CPT Code: 10375-Rtav Void Residual by ultrasound ([id number])
== END 2023-04-19 09:47 | disposition home or self-care (01) ==
LOC: HO.HUSH 09:12
PROVIDERS: PCP Internal Medicine; Visit Provider Nurse Practitioner Family
DX: N39.46 Mixed incontinence (principal); N28.1 Cyst of kidney, acquired; R33.9 Retention of urine, unspecified
CPT/HCPCS: 99213

== ENCOUNTER → 2023-04-19 09:12 | Outpatient (BNVA) | payer MEDICAID, SELFPAY | PROVIDERS: PCP Internal Medicine; Visit Provider Nurse Practitioner Family | DX: N39.46 Mixed incontinence (principal); N28.1 Cyst of kidney, acquired | CPT/HCPCS: 51798; 81003; 99212 ==

== ENCOUNTER 2023-04-24 09:00 | Outpatient (AMB) | payer MEDICAID, SELFPAY ==
[2023-04-24 09:03] VITALS: BMI 45.4
--- NOTE | 2023-04-24 09:03 | MHC.OFFVIS ---
Intake Vital Signs 04/24/23 09:03 Height 5 ft 2 in Weight 248 lb BMI 45.4 Intake Visit Reasons: New Pt - Left Knee Pain - Xr @ [facility] [place]/ Confirmed Intake Note: Charo is a 62 year old female who presents as a new patient with Left knee pain. Patient reports that her pain has been going on for about 3 months and is a 10 on the 1-10 pain scale. She states she has been using ice, heat and Tylenol for the pain but doesn't help. She denies any injury, surgery or injections. The patient has had similar pain in her right knee in the past. She has had cortisone injections given into her right knee which gave her fairly good relief. She wishes to hold off on surgery for as long as possible. She has taken Tylenol which gives her only mild relief. She is not able to take anti-inflammatory medicines because she is on Coumadin. Allergies aspirin Allergy (Verified 04/19/23 10:03) Unknown warfarin Allergy (Verified 04/19/23 10:03) Unknown metformin Adverse Reaction (Severe, Verified 04/19/23 10:03) Diarrhea Medication List - Last Reconciled 04/24/23 by George Jones MD albuterol sulfate 90 mcg/actuation (Ventolin HFA) 2 puffs inhalation QID amitriptyline 25 - 50 mg PO BEDTIME amlodipine 5 mg PO DAILY empagliflozin (Jardiance) 25 mg PO DAILY exenatide microspheres ER (Bydureon BCise) 2 mg subcut QWEEK gabapentin mg PO insulin glargine (Lantus Solostar U-100 Insulin) 10 units subcut BID insulin lispro (Humalog KwikPen (U-100) Insulin) 12 units subcut TID insulin regular human (Novolin R FlexPen) 12 units subcut TID lancets (FreeStyle Lancets) As directed lisinopril 40 mg PO DAILY loperamide 0 mg PO metoprolol succinate ER 100 mg PO DAILY mirabegron ER (Myrbetriq) 50 mg (2 x 25 mg) PO DAILY 30 days rosuvastatin 40 mg PO BEDTIME trazodone 50 - 100 mg PO BEDTIME PRN venlafaxine ER 150 mg PO QAM venlafaxine ER 0 mg PO [facility] Medical History Scalp irritation Scalp lesion DVT (deep venous thrombosis) Hypercoagulable state Hypertension Diabetes mellitus Surgical History History of surgical removal of lesion (~08/27/22) History of excision of lesion History of rotator cuff surgery History of cholecystectomy Family History Maternal Grandmother Breast cancer Sister Breast cancer Social History Household Members: Significant Other Housing: Apartment Alcohol intake: never Patient Tobacco Use Status: Former Tobacco user Substance Use Type: Marijuana Current occupational status: disabled Physical Exam Vital Signs: BMI result Body Mass Index 45.4 Const Other: Well-nourished well-developed very friendly female awake alert and oriented x3 in no acute distress Extrem Other: Bilateral lower extremity examination shows good capillary refill, no skin lesions noted, normal sensation light touch Left knee examination shows a minimal effusion, mild crepitus with range of motion, pain with range of motion, negative Florin's test, no instability Office Procedures Joint Injection/Drain Joint Injection/Drain Primary Site: left knee Prep: site was prepped using aseptic technique Injected: 40 mg of, DepoMedrol and 1% plain lidocaine Procedure: The patient tolerated the procedure well Coding 46010 - Large joint Procedure code (CPT) selection complete Results Reviewed Results Reviewed: X-rays of the patient's left knee show mild to moderate diffuse joint space narrowing, no acute bony abnormalities Assessment & Plan Assessment & Plan (1) Arthritis of left knee: Code(s): M17.12 - Unilateral primary osteoarthritis, left knee Plan Ms. Le presents with left knee pain due to degenerative joint disease. I had a lengthy discussion with the patient regarding the treatment options. She wishes to hold off on surgery for as long as possible. I agree with this plan. The risks and benefits of a left knee cortisone injection were discussed at length with the patient. The patient wished to proceed with the injection. She tolerated the injection well. She will continue with her activity modifications. She will follow up with me on an as-needed basis should her symptoms not plateau at an unacceptable level over the next few months. Feel free to call me at any time should questions regarding her orthopedic management arise. I spent 22 minutes in reviewing the patient's records and imaging studies, seeing the patient and documenting in the medical record. Orders: Orders AMB Joint Injection/Aspiration Today M17.12 - Unilateral primary osteoarthritis, left knee Coding Level of Care Code New Pt Level 2 (72464) Diagnoses Arthritis of left knee M17.12 CPT Codes Coding - 14614 Large joint: 55963 - Large joint ([id number])
== END 2023-04-24 09:35 | disposition home or self-care (01) ==
PROVIDERS: PCP Internal Medicine; Visit Provider Orthopaedic Surgery
DX: M17.12 Unilateral primary osteoarthritis, left knee (principal)
CPT/HCPCS: 20610; 99202

== ENCOUNTER → 2023-04-24 09:00 | Outpatient (BNVA) | payer MEDICAID, SELFPAY | PROVIDERS: PCP Internal Medicine; Visit Provider Orthopaedic Surgery | DX: M17.12 Unilateral primary osteoarthritis, left knee (principal) | CPT/HCPCS: 20610; 99202; J1020 ==

== ENCOUNTER 2023-04-30 10:33 | Outpatient (AMB) | payer MEDICAID, SELFPAY ==
[2023-04-30 10:57] VITALS: BP 130/76; PULSE 75; O2SAT 99; BMI 42.8
--- NOTE | 2023-04-30 10:57 | MHC.OFFVIS ---
Intake Vital Signs 04/30/23 10:57 Height 5 ft 2 in Weight 234 lb BMI 42.8 BP 130/76 Blood Pressure Location Rt brachial Position Sitting Pulse 75 Pulse Oximetry (%) 99 Oxygen Delivery Method Room Air Intake Visit Reasons: Obstructive sleep apnea Ultrasound Tech Required: No Column Precaster: Column Precaster offered & declined Accompanied by: Self / Same As Patient Allergies aspirin Allergy (Verified 04/30/23 11:03) Unknown metformin Adverse Reaction (Severe, Verified 04/30/23 11:03) Diarrhea Medication List - Last Reconciled 04/30/23 by Rosa Castaneda LPN albuterol sulfate 90 mcg/actuation (Ventolin HFA) 2 puffs inhalation QID amitriptyline 25 - 50 mg PO BEDTIME amlodipine 5 mg PO DAILY empagliflozin (Jardiance) 25 mg PO DAILY enoxaparin 150 mg subcut DAILY exenatide microspheres ER (Bydureon BCise) 2 mg subcut QWEEK gabapentin mg PO TID insulin glargine (Lantus Solostar U-100 Insulin) 10 units subcut BID insulin lispro (Humalog KwikPen (U-100) Insulin) 12 units subcut TID insulin regular human (Novolin R FlexPen) 12 units subcut TID lancets (FreeStyle Lancets) As directed lisinopril 40 mg PO DAILY loperamide 0 mg PO melatonin 3 mg PO BEDTIME metoprolol succinate ER 100 mg PO DAILY mirabegron ER (Myrbetriq) 50 mg (2 x 25 mg) PO DAILY 30 days omeprazole 40 mg PO DAILY oxybutynin chloride ER 10 mg PO DAILY rosuvastatin 40 mg PO BEDTIME sitagliptin phosphate (Januvia) 100 mg PO DAILY trazodone 50 - 100 mg PO BEDTIME PRN venlafaxine ER 150 mg PO QAM venlafaxine ER 0 mg PO warfarin 5 mg PO DAILY HPI Obstructive sleep apnea HPI Details Charo is a pleasant 62 year old female, minimal former smoker, with underlying asthma and PERRY on CPAP. She was referred by PCP for pulmonary evaluation. She was previously under the care of a fashion buying internship but requested to switch providers. She reports moderate dyspnea on minimal exertion, wheezing and chest tightness. She denies cough. She was previously on trelegy x 1 month with moderate relief of symptoms but was discontinued, unclear reason. She has been using albuterol upwards of 4 times per day with good effect. Her last PFT/methacholine challenge was suggestive of asthma, performed in 2020. She denies seasonal allergies. She reports daughter with asthma, otherwise no other pertinent family history. She denies occupational exposures. She also reports bilateral lower extremity edema, paroxsymal nocturnal dyspnea and orthopnea. She was prescribed lasix in the past, but has discontinued due to incontinence. She was reportedly told she no longer needs to follow up with cardiology. She has had a sleep study in the past, revealing PERRY and has been maintained on CPAP therapy, using a full face mask and receives supplies through [employer]. She does report issues with the mask and will be following up with DME to be fitted for a new mask. [facility] Medical History Scalp irritation Scalp lesion DVT (deep venous thrombosis) Hypercoagulable state Hypertension Diabetes mellitus Surgical History History of surgical removal of lesion (~08/27/22) History of excision of lesion History of rotator cuff surgery History of cholecystectomy Family History Maternal Grandmother Breast cancer Sister Breast cancer Social History (Updated 04/30/23 @ 20:19 by Winsome Morris NP) Household Members: Significant Other Housing: Apartment Alcohol intake: never Patient Tobacco Use Status: Former Tobacco user Tobacco use type: Cigarette Cigarette Packs Per Day: 0.5 Years Smoked: 1.5 Substance Use Type: Marijuana Current occupational status: disabled Review of Systems Const Denies chills, Denies excessive sweating, Denies fever(s), Denies headache(s) and Denies night sweats Eyes Denies dry eyes, Denies irritation and Denies itchy eyes ENT Reports Normal hearing present, Denies headache(s), Denies nasal congestion, Denies nasal discharge, Denies post nasal drip and Denies sore throat Card Denies chest pain, Denies chest pain at rest, Denies chest pain with activity and Denies claudication Resp Denies chest congestion, Denies cough, Denies excessive phlegm production, Denies pain on inspiration, Denies pain with cough and Denies stridor Musc Denies myalgias Neuro Reports Normal hearing present and Denies headache(s) Endo Denies excessive sweating Jose Raul/Lymph Denies lymphadenopathy Aller/Immun Denies itchy eyes and Denies seasonal rhinorrhea Physical Exam Vital Signs: Last Vital Signs Pulse 75 04/30/23 10:57 BP 130/76 04/30/23 10:57 Pulse Ox 99 04/30/23 10:57 Oxygen Delivery Method Room Air 04/30/23 10:57 BMI result Body Mass Index 42.8 Const General: cooperative, healthy appearing, comfortable, no acute distress, well developed and alert Nutritional Appearance: obese Orientation/consciousness: patient oriented x3 Limitations: no limitations HEENT Head: Yes normal to inspection, Yes normocephalic and Yes atraumatic Ears: hearing grossly normal bilaterally and external ears normal Eyes General: appearance normal, both eyes and all related structures Eyelids: Yes eyelids normal Sclerae: sclerae normal EOM: EOMs intact bilaterally Neck Neck: Yes normal visual inspection and Yes no lymphadenopathy Lymphatic: no lymphadenopathy noted Chest Chest palpation & inspection: normal inspection of the chest Resp Effort & Inspection: normal respiratory effort, able to speak in complete sentences, no audible wheezes, no cough, no stridor, not tachypneic, no tripod positioning and no use of accessory muscles Auscultation: clear to auscultation bilaterally Cardio Jugular venous distension: no JVD Rate: regular rate Rhythm: regular rhythm Skin Other: warm, dry General skin exam: no rashes or lesions noted Neuro General: patient oriented x3 Cranial nerves: Yes Normal hearing present Cognition (Neuro): normal cognition Gait exam (Neuro): Normal gait present Extrem General: Yes normal to inspection, Yes capillary refill normal, Yes no clubbing, cyanosis or edema and Yes no pedal edema Psych Appearance: grossly normal and well kempt Speech and movement: Normal speech and movement present and Clear speech present Affect: normal affect Attitude: cooperative Thought process: Normal thought process present Thought content: Normal thought content present Insight: Good insight present (Psych) Judgement: Good judgement present (Psych) Assessment & Plan Assessment & Plan (1) Asthma: Code(s): J45.909 - Unspecified asthma, uncomplicated (2) Dyspnea: Code(s): R06.00 - Dyspnea, unspecified (3) PERRY on CPAP: Code(s): G47.33 - Obstructive sleep apnea (adult) (pediatric) Plan Charo's symptoms are likely multifactorial with pulmonary and cardiac etiologies. Will empirically trial symbicort. Inhaler technique reviewed and discussed importance of oral hygiene. Will also send for echo, as patient reported symptoms suggestive of possible CHF. In regards to CPAP therapy, will likely need to send for updated sleep study. Will attempt to obtain compliance report from [facility]. All questions were answered and patient is in agreement of plan. Will review response to inhaler and results or sooner if needed. Orders: Orders CA echo transthoracic complete Today R06.00 - Dyspnea, unspecified Medications: New budesonide-formoterol 80-4.5 mcg/actuation (Symbicort) 2 puffs inhalation Q12H 10.2 grams 3RF Coding Level of Care Code New Pt Level 4 (73289) Diagnoses Asthma J45.909 Dyspnea R06.00 PERRY on CPAP G47.33
== END 2023-04-30 11:35 | disposition home or self-care (01) ==
PROVIDERS: PCP Internal Medicine; Visit Provider Nurse Practitioner Family
DX: J45.909 Unspecified asthma, uncomplicated (principal); R06.00 Dyspnea, unspecified; G47.33 Obstructive sleep apnea (adult) (pediatric)
CPT/HCPCS: 99204

== ENCOUNTER → 2023-04-30 10:33 | Outpatient (BNVA) | payer MEDICAID, SELFPAY | PROVIDERS: PCP Internal Medicine; Visit Provider Nurse Practitioner Family | DX: J45.909 Unspecified asthma, uncomplicated (principal); G47.33 Obstructive sleep apnea (adult) (pediatric); R06.00 Dyspnea, unspecified | CPT/HCPCS: 99212 ==

== ENCOUNTER → 2023-05-23 13:38 | Outpatient (REF) | payer MEDICAID, SELFPAY ==
--- NOTE | 2023-05-23 13:41 | CA_ITS ---
Transthoracic Echocardiogram Patient (Last, First, Middle): Charo Le, Gender: Female Date of : 1960 Age: 62 Procedure Date: 05/23/2023 Procedure Type: Transthoracic Echocardiogram Location: OP Height: 157. cm Weight: 112.04 kg BSA: 2.09 m2 Heart Rate: 70 bpm BP: 140 / 70 mmHg Physicist [place]: JULIETA Prasad MD: Winsome Morris SHADOW GRAPH WEIGHT OPERATOR Branch Mechanic: Steve Snider MD Symptoms: R06.00 - Dyspnea, unspecified Study Quality: Fair ECG Rhythm: Sinus Conclusions: - 1. Normal LV ejection fraction 55-60% with impaired relaxation filling pattern 2. Normal cardiac valvular Doppler 3. Normal RV systolic pressure 4. No gross pericardial effusion Findings Left Ventricle Normal left ventricular size, thickness, and systolic function. The visually estimated ejection fraction is between 55-60%. Spectral Doppler is indicative of an impaired relaxation filling pattern. E/E prime ratio is between 8 and 15 consistent with indeterminate filling pressures. Peak GLS is -17.3%, borderline low. Right Ventricle Normal right ventricular cavity size and systolic function. Atria Both atria are normal in size. There is no evidence of interatrial shunt. Aortic Valve Normal aortic valve structure and function. There is no aortic valve stenosis. There is no aortic valve regurgitation. Mitral Valve Normal mitral valve structure and function. There is trace mitral valve regurgitation. There is no mitral valve stenosis. Pulmonic Valve The pulmonic valve is likely normal. There is trace pulmonic valve regurgitation. Tricuspid Valve Normal tricuspid valve structure. Tricuspid regurgitation envelope is inadequate for calculation of right ventricular systolic pressure. Normal right atrial pressure. Great Vessels All visible segments of the aorta are normal in size. The pulmonary artery was not well visualized. There is no dilatation of the ascending aorta measuring 2.70 cm. Venous The inferior vena cava is normal in size and collapses greater than 50% with inspiration. Pericardium/Pleural There is no evidence of pericardial effusion. Prior Study Comparison No prior study available for comparison. Measurements 2D Linear Measurements IVSd: 1.01 0.6-0.9/0.6-1.0 cm LVIDd: 3.63 3.9-5.3/4.2-5.9 cm LVIDd Index: 1.74 2.4-3.2/2.2-3.1 cm/m2 LVIDs: 2.36 2.0-3.6 cm LVPWd: 1.05 0.7-1.1 cm LA Diam: 3.20 2.7-3.8/3.0-4.0 cm LAIDs Index: 1.53 1.5-2.3 cm/m2 LV Mass: 141.84 67-162/88-224 g LV Mass Index: 67.87 43-95/49-115 g/m2 LVOT Diam: 1.90 3.0+(-)1.3 cm 2D Systolic Function EF 4C: 55.90 >55% EF 2C: 57.40 >55% EF BiP: 56.50 >55% Mitral Valve MV Pk E: 0.94 MV PK A: 1.06 MV Decel Time: 244.00 E/A: 0.90 E'Lateral: 7.18 E'Medial: 6.20 E/E' Med: 15.20 E/E' Lat: 13.10 PHT: 72.00 MVA PHT: 3.06 Decel [place]: 3.85 Aortic Valve AoV Pk James: 1.46 AoV Mn James: 1.09 AoV VTI: 0.38 AoV Pk Grad: 9.00 Aov Mn Grad: 5.00 MADAN Cont.VTI: 2.01 LVOT LVOT Pk James: 1.10 LVOT Mn James: 0.82 LVOT VTI: 0.27 LVOT Pk Grad: 5.00 LVOT Mn Grad: 3.00 LVOT Diam: 1.90 LVOT Area: 2.84 Diastolic Function MV Pk E: 0.94 MV Pk A: 1.06 E/A: 0.90 E'Medial: 6.20 E/E' Med: 15.20 E' Laterial: 7.18 E/E' Lat: 13.10 Right Ventricle TAPSE (mm): 19.40 TVS' James: 12.80 Tricuspid Valve RA Press: 3.00 Great Vessels Aorta Sinus of Valsalva: 2.70 2.0-3.5 cm Ao Asc: 2.70 2.1-3.4 cm Pulmonary Valve PV Pk James: 1.14 Peak PV Grad: 5.00 Updated in Other Vendor System with Status of Final Steve Snider MD electronically signed on 05/24/2023 3:46:07 PM with status of Final
== END ==
LOC: HO.CARD 13:38
PROVIDERS: PCP Internal Medicine; Visit Provider Nurse Practitioner Family
DX: R06.00 Dyspnea, unspecified (principal)
CPT/HCPCS: 93306; 93356

== ENCOUNTER → 2023-05-23 13:41 | Outpatient (BNV) | payer MEDICAID, SELFPAY | PROVIDERS: PCP Internal Medicine; Visit Provider Internal Medicine Cardiovascular Disease | DX: R06.00 Dyspnea, unspecified (principal) | CPT/HCPCS: 93306; 93356 ==

== ENCOUNTER 2023-05-31 07:59 | Outpatient (AMB) | payer MEDICAID, SELFPAY ==
--- NOTE | 2023-05-31 08:06 | A.OFFVIS_ITS ---
Intake Intake Visit Reasons: 1m follow up Intake Note: Patient presents today for a telehealth follow-up on mixed incontinence urge and stress. Meds- Myrbetriq 50, Allergies to Antibiotic- No Known Allergies Blood Thinner- Warfarin, Enoxaparin Crew Car Driver Required: No Allergies aspirin Allergy (Verified 05/31/23 08:59) Unknown metformin Adverse Reaction (Severe, Verified 05/31/23 08:59) Diarrhea Medication List - Last Reconciled 05/31/23 by JERRY Mehta- albuterol sulfate 90 mcg/actuation (Ventolin HFA) 2 puffs inhalation QID amitriptyline 25 - 50 mg PO BEDTIME amlodipine 5 mg PO DAILY budesonide-formoterol 80-4.5 mcg/actuation (Symbicort) 2 puffs inhalation Q12H empagliflozin (Jardiance) 25 mg PO DAILY enoxaparin 150 mg subcut DAILY exenatide microspheres ER (Bydureon BCise) 2 mg subcut QWEEK gabapentin mg PO TID insulin glargine (Lantus Solostar U-100 Insulin) 10 units subcut BID insulin lispro (Humalog KwikPen (U-100) Insulin) 12 units subcut TID insulin regular human (Novolin R FlexPen) 12 units subcut TID lancets (FreeStyle Lancets) As directed lisinopril 40 mg PO DAILY loperamide 0 mg PO melatonin 3 mg PO BEDTIME metoprolol succinate ER 100 mg PO DAILY mirabegron ER (Myrbetriq) 50 mg (2 x 25 mg) PO DAILY 30 days omeprazole 40 mg PO DAILY oxybutynin chloride ER 10 mg PO DAILY rosuvastatin 40 mg PO BEDTIME sitagliptin phosphate (Januvia) 100 mg PO DAILY trazodone 50 - 100 mg PO BEDTIME PRN venlafaxine ER 150 mg PO QAM venlafaxine ER 0 mg PO warfarin 5 mg PO DAILY HPI HPI Comments History of Present Illness Details Charo is a very pleasant 62-year-old female patient of Dr. Palmer. She has a past medical history of DVT, hypertension, and diabetes mellitus. She is being followed up on today via telehealth for her mixed urinary incontinence. In discussion with the patient today she reports no significant improvement in lower urinary tract symptoms with increase of Myrbetriq and 50 mg daily. Previous workup has included a retroperitoneal ultrasound noting bilateral kidneys with no calculi or hydronephrosis. There is a 17 x 16 x 14 mm cyst in the lower pole the right kidney, for which no specific imaging follow-up is needed per radiology report. The bladder is well distended and normal. Bilateral ureteral jets are demonstrated. Pre void bladder volume is approximately 150 mL. Postvoid bladder volume is approximately 10 mL. She otherwise denies hematuria, dysuria, foul smelling urine, changes to urinary stream, flank pain, fever, and or chills. Discussed at length importance of managing diabetes for improvement in lower urinary tract symptoms. She otherwise offers no other issues or concerns at this time. [facility] Medical History Scalp irritation Scalp lesion DVT (deep venous thrombosis) Hypercoagulable state Hypertension Diabetes mellitus Surgical History History of surgical removal of lesion (~08/27/22) History of excision of lesion History of rotator cuff surgery History of cholecystectomy Family History Maternal Grandmother Breast cancer Sister Breast cancer Social History Household Members: Significant Other Housing: Apartment Alcohol intake: never Patient Tobacco Use Status: Former Tobacco user Tobacco use type: Cigarette Cigarette Packs Per Day: 0.5 Years Smoked: 1.5 Substance Use Type: Marijuana Current occupational status: disabled Review of Systems Const All systems reviewed & are unremarkable except as noted in HPI and below Denies chills and Denies fever(s) Eyes Reports no additional complaints ENT Reports no additional complaints Card Denies chest pain, Denies dyspnea and Denies dyspnea on exertion Resp Denies cough, Denies dyspnea and Denies dyspnea on exertion GI Denies hematochezia and Denies change in bowel habits Denies hematuria Musc Denies back pain and Denies limited range of motion Neuro Denies focal weakness and Denies convulsions Psych Denies depression and Denies mood swings Endo Reports no additional complaints Jose Raul/Lymph Reports as per HPI Physical Exam Const General: cooperative Resp Effort & Inspection: able to speak in complete sentences Psych Speech and movement: Clear speech present Affect: normal affect Attitude: cooperative Thought process: Normal thought process present Thought content: Normal thought content present Insight: Fair insight present (Psych) Judgement: Fair judgement present (Psych) Assessment & Plan Assessment & Plan (1) Lower urinary tract symptoms: Code(s): R39.9 - Unspecified symptoms and signs involving the genitourinary system (2) Mixed incontinence urge and stress: Code(s): N39.46 - Mixed incontinence Plan For stop Myrbetriq Start Gemtesa 75mg daily as discussed and prescribed. Discussed potential causes for lower urinary tract symptoms patient is experiencing. Discussed at length importance of managing diabetes for improvement in lower urinary tract symptoms as well as overall health and well-being. Discussed bladder triggers/irritants. Discussed importance of timed/scheduled voiding to decreased episodes of incontinence. Discussed weight loss in correlation to extra weight putting pressure on the bladder making incontinence more likely. Discussed possible near future in office urodynamics for further assessment evaluation. Follow-up in 6-8 weeks with [facility]; or sooner with any issues, concerns, and or questions. Medications: New vibegron (Gemtesa) 75 mg PO DAILY 30 tabs 2RF 30 days N32.81 - Overactive bladder Discontinued mirabegron ER (Myrbetriq) Discontinued Reason: Doctor's Order 50 mg (2 x 25 mg) PO DAILY 30 days 60 tabs 1RF N30.10 - Interstitial cystitis (chronic) without hematuria, N32.81 - Overactive bladder, R35.1 - Nocturia, R39.15 - Urgency of urination Patient Instructions: The patient had an opportunity to ask questions regarding the treatment plan. All questions were answered. Physical exam, labs, and imaging were discussed and reviewed in detail. As well as risks, benefits, and discussion of treatment choices. No major barriers to understanding were identified. The patient expressed understanding and agreement with the above treatment plan. The patient was made aware they should contact our office by phone for worsening of their current condition, the appearance of new symptoms, or with any questions or concerns. Compliance is encouraged with any medications and follow up testing that is ordered. It is a privilege to be allowed the opportunity to participate in? your urological care.? Again, if you have any questions or concerns If you have any questions or concerns please do not hesitate to contact me. The office is [phone]. This note is constructed using voice recognition software. While every effort has been made to ensure accuracy animal feeder errors may have been included. Yours sincerely, Leatha [facility] Telehealth Telehealth Location of provider rendering services: practice address Location of patient: address on file Patient Identification confirmed using: Name, : Yes Telehealth method: voice only Patient verbally consented to treatment: Yes Patient verbally consented to billing insurance company: Yes Patient informed of any privacy concerns related to visit: Yes Minutes spent on Phone/Video with Pt.: 20 Coding Level of Care Code Tele Est Pt Level 4 (41394) Diagnoses Lower urinary tract symptoms R39.9 Mixed incontinence urge and stress N39.46
== END 2023-05-31 09:10 | disposition home or self-care (01) ==
LOC: HO.HUSH 07:59
PROVIDERS: PCP Internal Medicine; Visit Provider Nurse Practitioner Family
DX: R39.9 Unspecified symptoms and signs involving the genitourinary system (principal); N39.46 Mixed incontinence
CPT/HCPCS: 99214

== ENCOUNTER → 2023-05-31 07:59 | Outpatient (BNVA) | payer MEDICAID, SELFPAY | PROVIDERS: PCP Internal Medicine; Visit Provider Nurse Practitioner Family ==

== ENCOUNTER 2023-07-09 08:10 | Outpatient (AMB) | payer MEDICAID, SELFPAY ==
[2023-07-09 08:12] VITALS: BMI 42.8
--- NOTE | 2023-07-09 08:12 | MHC.OFFVIS ---
Vital Signs 07/09/23 08:12 Height 5 ft 2 in Weight 234 lb BMI 42.8 Intake Visit Reasons: New Prob - right knee pain, DOI 07/01/23 Intake Note: Charo is a 62 year old female who presents with Right knee pain due to falling off a curb on 07/01/2023. Patient states her pain is a 10 on the 1-10 pain scale. She states she is using Tylenol, THC edibles for the pain with little relief. She was given a brace but states she can't get it on. She states that her right knee will give out several times per day. She denies any symptoms prior to this recent injury. She has had cortisone injections given into her left knee which gave her fairly good relief. Allergies aspirin Allergy (Verified 07/09/23 08:18) Unknown metformin Adverse Reaction (Severe, Verified 07/09/23 08:18) Diarrhea Medication List - Last Reconciled 07/09/23 by George Jones MD albuterol sulfate 90 mcg/actuation (Ventolin HFA) 2 puffs inhalation QID amitriptyline 25 - 50 mg PO BEDTIME amlodipine 5 mg PO DAILY budesonide-formoterol 80-4.5 mcg/actuation (Symbicort) 2 puffs inhalation Q12H empagliflozin (Jardiance) 25 mg PO DAILY enoxaparin 150 mg subcut DAILY exenatide microspheres ER (Bydureon BCise) 2 mg subcut QWEEK gabapentin mg PO TID insulin glargine (Lantus Solostar U-100 Insulin) 10 units subcut BID insulin lispro (Humalog KwikPen (U-100) Insulin) 12 units subcut TID insulin regular human (Novolin R FlexPen) 12 units subcut TID lancets (FreeStyle Lancets) As directed lisinopril 40 mg PO DAILY loperamide 0 mg PO melatonin 3 mg PO BEDTIME metoprolol succinate ER 100 mg PO DAILY omeprazole 40 mg PO DAILY rosuvastatin 40 mg PO BEDTIME sitagliptin phosphate (Januvia) 100 mg PO DAILY trazodone 50 - 100 mg PO BEDTIME PRN venlafaxine ER 150 mg PO QAM venlafaxine ER 0 mg PO vibegron (Gemtesa) 75 mg PO DAILY 30 days warfarin 5 mg PO DAILY [facility] Medical History (Updated 07/09/23 @ 08:26 by George Jones MD) Scalp irritation Scalp lesion DVT (deep venous thrombosis) Hypercoagulable state Hypertension Diabetes mellitus Surgical History (Updated 07/09/23 @ 08:20 by Nadya Mcpherson CMA) Hx of right knee surgery History of surgical removal of lesion (~08/27/22) History of excision of lesion History of rotator cuff surgery History of cholecystectomy Family History Maternal Grandmother Breast cancer Sister Breast cancer Social History (Updated 07/09/23 @ 08:21 by Nadya Mcpherson CMA) Household Members: Significant Other Housing: Apartment Alcohol intake: never Patient Tobacco Use Status: Former Tobacco user Tobacco use type: Cigarette Cigarette Packs Per Day: 0.5 Years Smoked: 1.5 Substance Use Type: Marijuana Current occupational status: disabled 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 Physical Exam Vital Signs: BMI result Body Mass Index 42.8 Const Other: Well-nourished well-developed very friendly female awake alert and oriented x3 in no acute distress Extrem Other: Bilateral lower extremity examination shows good capillary refill, no skin lesions noted, normal sensation light touch Right knee examination shows a minimal effusion, minimal crepitus with range of motion, tenderness along her medial joint line, positive Florin's test, no instability Office Procedures Joint Injection/Drain Joint Injection/Drain Primary Site: right knee Prep: site was prepped using aseptic technique Injected: 40 mg of, DepoMedrol and 1% plain lidocaine Procedure: The patient tolerated the procedure well Coding 63376 - Large joint Procedure code (CPT) selection complete Results Reviewed Results Reviewed: Standing full weight-bearing x-rays of the patient's right knee show minimal joint space narrowing, no acute bony abnormalities Assessment & Plan Assessment & Plan (1) Right knee pain: Code(s): M25.561 - Pain in right knee Category: Medical Plan Ms. Le presents with right knee pain and mechanical symptoms due to early degenerative joint disease as well as possible tearing of her medial meniscus. I had a lengthy discussion with the patient regarding the treatment options. She wishes to hold off on surgery for as long as possible. I agree with this plan. The risks and benefits of a right knee cortisone injection were discussed at length with the patient. The patient wished to proceed with the injection. She tolerated the injection well. She will continue with her activity modifications. She will contact me prior to her follow-up appointment in 4-6 weeks should any questions or concerns arise. Feel free to call me at any time should questions regarding her orthopedic management arise. I spent 22 minutes in reviewing the patient's records and imaging studies, seeing the patient and documenting in the medical record. Orders: Orders AMB Joint Injection/Aspiration Today M25.561 - Pain in right knee XR knee RT 3V Today M25.561 - Pain in right knee Coding Level of Care Code Est Pt Level 2 (68866) Diagnoses Right knee pain M25.561 CPT Codes Coding - 15555 Large joint: 44802 - Large joint ([id number])
== END 2023-07-09 09:02 | disposition home or self-care (01) ==
PROVIDERS: PCP Internal Medicine; Visit Provider Orthopaedic Surgery
DX: M25.561 Pain in right knee (principal)
CPT/HCPCS: 20610; 99213

== ENCOUNTER 2023-07-09 08:10 | Outpatient (REF) | payer MEDICAID, SELFPAY ==
--- NOTE | ~2023-07-09 | XR_ITS ---
EXAMINATION: XR KNEE, RIGHT CLINICAL INFORMATION: Pain in the right knee COMPARISON: None available. TECHNIQUE: Four views of the right knee. FINDINGS: No fracture or joint effusion. Alignment is anatomic. Joint spaces are maintained. No abnormal soft tissue calcification. XR/XR knee RT 3V IMPRESSION: Normal right knee.
== END 2023-07-09 08:11 | disposition home or self-care (01) ==
LOC: HO.HOSX 08:10
PROVIDERS: PCP Internal Medicine; Visit Provider Orthopaedic Surgery
DX: M25.561 Pain in right knee (principal)
CPT/HCPCS: 20610; 73562; 99212; J1010

== ENCOUNTER 2023-07-23 09:02 | Outpatient (AMB) | payer MEDICAID, SELFPAY ==
--- NOTE | 2023-07-23 09:15 | MHC.OFFVIS ---
Vital Signs 07/23/23 09:16 Height 5 ft 2 in Weight 234 lb BMI 42.8 Intake Visit Reasons: Right knee pain Intake Note: Charo is a 62 year old female who presents with complaints of progressively worsening right knee pain and giving way. The patient has failed the last 6 weeks of conservative treatment. She did have a cortisone injection given into her right knee several weeks ago which gave her no relief. She has also done physical therapy exercises which aggravated her pain. She has tried Tylenol and anti-inflammatory medicines which gave her minimal relief. She states that her right knee will give out several times per day. Allergies aspirin Allergy (Verified 07/23/23 09:28) Unknown metformin Adverse Reaction (Severe, Verified 07/23/23 09:28) Diarrhea Medication List - Last Reconciled 07/23/23 by George Jones MD albuterol sulfate 90 mcg/actuation (Ventolin HFA) 2 puffs inhalation QID amitriptyline 25 - 50 mg PO BEDTIME amlodipine 5 mg PO DAILY budesonide-formoterol 80-4.5 mcg/actuation (Symbicort) 2 puffs inhalation Q12H empagliflozin (Jardiance) 25 mg PO DAILY enoxaparin 150 mg subcut DAILY exenatide microspheres ER (Bydureon BCise) 2 mg subcut QWEEK gabapentin mg PO TID insulin glargine (Lantus Solostar U-100 Insulin) 10 units subcut BID insulin lispro (Humalog KwikPen (U-100) Insulin) 12 units subcut TID insulin regular human (Novolin R FlexPen) 12 units subcut TID lancets (FreeStyle Lancets) As directed lisinopril 40 mg PO DAILY loperamide 0 mg PO melatonin 3 mg PO BEDTIME metoprolol succinate ER 100 mg PO DAILY omeprazole 40 mg PO DAILY rosuvastatin 40 mg PO BEDTIME sitagliptin phosphate (Januvia) 100 mg PO DAILY trazodone 50 - 100 mg PO BEDTIME PRN venlafaxine ER 150 mg PO QAM venlafaxine ER 0 mg PO vibegron (Gemtesa) 75 mg PO DAILY 30 days warfarin 5 mg PO DAILY PFSH Medical History Scalp irritation Scalp lesion DVT (deep venous thrombosis) Hypercoagulable state Hypertension Diabetes mellitus Surgical History Hx of right knee surgery History of surgical removal of lesion (~08/27/22) History of excision of lesion History of rotator cuff surgery History of cholecystectomy Family History Maternal Grandmother Breast cancer Sister Breast cancer Social History Household Members: Significant Other Housing: Apartment Alcohol intake: never Patient Tobacco Use Status: Former Tobacco user Tobacco use type: Cigarette Cigarette Packs Per Day: 0.5 Years Smoked: 1.5 Substance Use Type: Marijuana Current occupational status: disabled 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 Physical Exam Vital Signs: BMI result Body Mass Index 42.8 Const Other: Well-nourished well-developed very friendly female awake alert and oriented x3 in no acute distress Extrem Other: Bilateral lower extremity examination shows good capillary refill, no skin lesions noted, normal sensation light touch Right knee examination shows a minimal effusion, minimal crepitus with range of motion, tenderness along her medial joint line, positive Florin's test, no instability Assessment & Plan Assessment & Plan (1) Right knee pain: Code(s): M25.561 - Pain in right knee Category: Medical Plan Ms. Le presents with progressively worsening right knee pain and mechanical symptoms due to early degenerative joint disease as well as possible medial meniscus tearing. Thus, I will send the patient for an MRI of her right knee for further evaluation. I will see her back once the MRI is completed to discuss the findings and treatment options. Feel free to call me at any time should questions regarding her orthopedic management arise. I spent 21 minutes in reviewing the patient's records and imaging studies, seeing the patient and documenting in the medical record. Orders: Orders MR knee RT wo con Today M25.561 - Pain in right knee Coding Level of Care Code Est Pt Level 3 (60546) Diagnoses Right knee pain M25.561
[2023-07-23 09:16] VITALS: BMI 42.8
== END 2023-07-23 09:42 | disposition home or self-care (01) ==
PROVIDERS: PCP Internal Medicine; Referring Provider Internal Medicine; Visit Provider Orthopaedic Surgery
DX: M25.561 Pain in right knee (principal)
CPT/HCPCS: 99213

== ENCOUNTER → 2023-07-23 09:02 | Outpatient (BNVA) | payer MEDICAID, SELFPAY | PROVIDERS: PCP Internal Medicine; Visit Provider Orthopaedic Surgery | DX: M17.11 Unilateral primary osteoarthritis, right knee (principal) | CPT/HCPCS: 99212 ==

== ENCOUNTER 2023-07-24 09:27 | Outpatient (AMB) | payer MEDICAID, SELFPAY ==
--- NOTE | 2023-07-24 09:39 | A.OFFVIS_ITS ---
Vital Signs 07/24/23 09:40 Height 5 ft 2 in Weight 237 lb 2 oz BMI 43.4 BP 136/68 Blood Pressure Location Lt brachial Position Sitting Pulse 64 Pulse Source Pulse Oximeter Pulse Oximetry (%) 99 Oxygen Delivery Method Room Air Intake Visit Reasons: perry: 3 month f/u Allergies aspirin Allergy (Verified 07/24/23 09:43) Unknown metformin Adverse Reaction (Severe, Verified 07/24/23 09:43) Diarrhea HPI HPI perry: 3 month f/u: Details: Charo is a pleasant 62 year old female, minimal former smoker, with underlying asthma and PERRY on CPAP. She reports continued moderate dyspnea on minimal exertion, and dry cough, despite initiation of symbicort. She reports poor tolerance of dry powder. She denies any wheezing or chest tightness. She could use to help upwards of 4 times per day with good effect. She denies any urgent care visits or hospitalizations since the last visit. She has had a sleep study in the past, revealing PERRY and has been maintained on CPAP therapy, using a full face mask and receives supplies through [employer]. She reports feeling as though her pressures may not be correct on CPAP therapy because she is quite symptomatic with significant daytime somnolence and non restorative sleep. She denies any recent sleep study. COUNTS INCLUDE 234 BEDS AT THE [facility] Medical History Scalp irritation Scalp lesion DVT (deep venous thrombosis) Hypercoagulable state Hypertension Diabetes mellitus Surgical History Hx of right knee surgery History of surgical removal of lesion (~08/27/22) History of excision of lesion History of rotator cuff surgery History of cholecystectomy Family History Maternal Grandmother Breast cancer Sister Breast cancer Social History Household Members: Significant Other Housing: Apartment Alcohol intake: never Patient Tobacco Use Status: Former Tobacco user Tobacco use type: Cigarette Cigarette Packs Per Day: 0.5 Years Smoked: 1.5 Substance Use Type: Marijuana Current occupational status: disabled 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 Review of Systems Const Denies chills, Denies excessive sweating, Denies fever(s), Denies headache(s) and Denies night sweats Eyes Denies dry eyes, Denies irritation and Denies itchy eyes ENT Reports Normal hearing present, Denies headache(s), Denies nasal congestion, Denies nasal discharge, Denies post nasal drip and Denies sore throat Card Denies chest pain, Denies chest pain at rest, Denies chest pain with activity and Denies claudication Resp Denies chest congestion, Denies excessive phlegm production, Denies pain on inspiration, Denies pain with cough and Denies stridor Musc Denies myalgias Neuro Reports Normal hearing present and Denies headache(s) Endo Denies excessive sweating Jose Raul/Lymph Denies lymphadenopathy Aller/Immun Denies itchy eyes and Denies seasonal rhinorrhea Physical Exam Vital Signs: Last Vital Signs Pulse 64 07/24/23 09:40 BP 136/68 07/24/23 09:40 Pulse Ox 99 07/24/23 09:40 Oxygen Delivery Method Room Air 07/24/23 09:40 BMI result Body Mass Index 43.4 Const General: cooperative, healthy appearing, comfortable, no acute distress, well developed and alert Nutritional Appearance: obese Orientation/consciousness: patient oriented x3 Limitations: no limitations HEENT Head: Yes normal to inspection, Yes normocephalic and Yes atraumatic Ears: hearing grossly normal bilaterally and external ears normal Eyes General: appearance normal, both eyes and all related structures Eyelids: Yes eyelids normal Sclerae: sclerae normal EOM: EOMs intact bilaterally Neck Neck: Yes normal visual inspection and Yes no lymphadenopathy Lymphatic: no lymphadenopathy noted Chest Chest palpation & inspection: normal inspection of the chest Resp Effort & Inspection: normal respiratory effort, able to speak in complete sentences, no audible wheezes, no cough, no stridor, not tachypneic, no tripod positioning and no use of accessory muscles Auscultation: clear to auscultation bilaterally Cardio Jugular venous distension: no JVD Rate: regular rate Rhythm: regular rhythm Skin Other: warm, dry General skin exam: no rashes or lesions noted Neuro General: patient oriented x3 Cranial nerves: Yes Normal hearing present Cognition (Neuro): normal cognition Gait exam (Neuro): Normal gait present Extrem General: Yes normal to inspection, Yes capillary refill normal, Yes no clubbing, cyanosis or edema and Yes no pedal edema Psych Appearance: grossly normal and well kempt Speech and movement: Normal speech and movement present and Clear speech present Affect: normal affect Attitude: cooperative Thought process: Normal thought process present Thought content: Normal thought content present Insight: Good insight present (Psych) Judgement: Good judgement present (Psych) Assessment & Plan Assessment & Plan (1) Asthma: Code(s): J45.909 - Unspecified asthma, uncomplicated Category: Medical (2) Dyspnea: Code(s): R06.00 - Dyspnea, unspecified Category: Medical (3) PERRY on CPAP: Code(s): G47.33 - Obstructive sleep apnea (adult) (pediatric) Category: Medical (4) Daytime somnolence: Code(s): R40.0 - Somnolence Category: Medical Plan Reviewed echo which was unremarkable. At the last visit patient was trialed on Symbicort however could not tolerate the dry powder inhaler and also had suboptimal response, as she reported frequent use of albuterol. Will increase dose of ICS/LABA and trial Dulera. Patient also notes non restorative sleep and daytime somnolence despite CPAP therapy. She denies any recent sleep studies. and reports no monitoring of compliance over the last year. A home sleep study was ordered at the last visit, but patient failed to schedule. Now that patient reports symptoms suggestive of uncontrolled PERRY, will send for in lab titration study to determine optimal pressures. All questions were answered and patient is in agreement of plan. Will follow-up after sleep study. Orders: Orders RT PSG in-lab sleep titration Today G47.33 - Obstructive sleep apnea (adult) (pediatric), R40.0 - Somnolence Medications: New mometasone-formoterol 200-5 mcg/actuation (Dulera) 2 puffs inhalation BID 13 grams 6RF Coding Level of Care Code Est Pt Level 4 (08078) Diagnoses Asthma J45.909 Dyspnea R06.00 PERRY on CPAP G47.33 Daytime somnolence R40.0
[2023-07-24 09:40] VITALS: BP 136/68; PULSE 64; O2SAT 99; BMI 43.4
== END 2023-07-24 10:06 | disposition home or self-care (01) ==
PROVIDERS: PCP Internal Medicine; Visit Provider Nurse Practitioner Family
DX: J45.909 Unspecified asthma, uncomplicated (principal); R06.00 Dyspnea, unspecified; G47.33 Obstructive sleep apnea (adult) (pediatric); R40.0 Somnolence
CPT/HCPCS: 99214

== ENCOUNTER → 2023-07-24 09:27 | Outpatient (BNVA) | payer MEDICAID, SELFPAY | PROVIDERS: PCP Internal Medicine; Visit Provider Nurse Practitioner Family | DX: J45.909 Unspecified asthma, uncomplicated (principal); G47.33 Obstructive sleep apnea (adult) (pediatric); R06.00 Dyspnea, unspecified; R40.0 Somnolence | CPT/HCPCS: 99212 ==

== ENCOUNTER → 2023-09-20 21:55 | Outpatient (REF) | payer MEDICAID, SELFPAY | LOC: HO.SL 21:55 | PROVIDERS: PCP Internal Medicine; Visit Provider Nurse Practitioner Family | DX: G47.33 Obstructive sleep apnea (adult) (pediatric) (principal); R40.0 Somnolence | CPT/HCPCS: 95811 ==

== ENCOUNTER 2023-09-23 14:13 | Outpatient (REF) | payer MEDICAID, SELFPAY ==
--- NOTE | ~2023-09-23 | MR_ITS ---
EXAMINATION: MR KNEE WITHOUT CONTRAST, RIGHT CLINICAL INFORMATION: Right knee pain. COMPARISON: Radiographs 06/12/2023 TECHNIQUE: MRI of the knee without contrast was performed using routine sequences on a high-field scanner. FINDINGS: MENISCI: Medial Meniscus: Minimal undersurface fraying at the junction of the posterior horn and body. Otherwise intact. Lateral Meniscus: Ill-defined degeneration/fraying at the root of the posterior horn. Ill-defined fraying also at the inner margin of the anterior horn adjacent to the root. LIGAMENTS: Cruciate: Intact. Mild degenerative signal of the proximal PCL. Collateral: Intact EXTENSOR MECHANISM: Intact ARTICULAR CARTILAGE/BONE: Patellofemoral Compartment: Normal Medial Compartment: Mild peripheral cartilage thinning medially. Lateral Compartment: Mild cartilage thinning and surface irregularity of the tibia posteriorly. JOINT FLUID AND BURSAE: Trace joint effusion. MR/MR knee RT wo con IMPRESSION: 1. Minimal undersurface fraying of the medial meniscus at the junction of the posterior horn and body. 2. Ill-defined degeneration/fraying at the root of the posterior horn of the lateral meniscus and inner margin of the anterior horn adjacent to the root. 3. Mild medial/lateral compartment osteoarthritis with a trace joint effusion.
== END 2023-09-23 14:14 | disposition home or self-care (01) ==
LOC: HO.MRI 14:13
PROVIDERS: PCP Internal Medicine; Visit Provider Orthopaedic Surgery
DX: M25.561 Pain in right knee (principal)
CPT/HCPCS: 73721

== ENCOUNTER 2023-09-27 09:37 | Outpatient (AMB) | payer MEDICAID, SELFPAY ==
[2023-09-27 09:38] VITALS: BP 130/68; PULSE 73; O2SAT 96; BMI 43.2
--- NOTE | 2023-09-27 09:38 | A.OFFVIS_ITS ---
Vital Signs 09/27/23 09:38 Height 5 ft 2 in Weight 236 lb 2 oz BMI 43.2 BP 130/68 Blood Pressure Location Rt brachial Position Sitting Pulse 73 Pulse Source Pulse Oximeter Pulse Oximetry (%) 96 Oxygen Delivery Method Room Air Intake Visit Reasons: Follow up to review results Allergies aspirin Allergy (Verified 09/27/23 09:41) Unknown metformin Adverse Reaction (Severe, Verified 09/27/23 09:41) Diarrhea HPI HPI Follow up to review results: Details: Charo is a pleasant 62 year old female, minimal former smoker, with underlying asthma and PERRY on CPAP. She reports continued moderate dyspnea on minimal exertion, and dry cough, despite initiation of symbicort, using albuterol frequently with good effect. She denies any wheezing or chest tightness. At the last visit she was switched to Dulera as she could not tolerate the DPI however reports minimal improvement. She denies any urgent care visits or hospitalizations since the last visit. She has had a sleep study in the past, revealing PERRY and has been maintained on CPAP therapy, using a full face mask and receives supplies through [employer]. She reports feeling as though her pressures may not be correct on CPAP therapy because she is quite symptomatic with significant daytime somnolence and non restorative sleep. Today she presents to review in lab PSG. [facility] Medical History Scalp irritation Scalp lesion DVT (deep venous thrombosis) Hypercoagulable state Hypertension Diabetes mellitus Surgical History Hx of right knee surgery History of surgical removal of lesion (~08/27/22) History of excision of lesion History of rotator cuff surgery History of cholecystectomy Family History Maternal Grandmother Breast cancer Sister Breast cancer Social History Household Members: Significant Other Housing: Apartment Alcohol intake: never Patient Tobacco Use Status: Former Tobacco user Tobacco use type: Cigarette Cigarette Packs Per Day: 0.5 Years Smoked: 1.5 Substance Use Type: Marijuana Current occupational status: disabled 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 Review of Systems Const Denies chills, Denies excessive sweating, Denies fever(s), Denies headache(s) and Denies night sweats Eyes Denies dry eyes, Denies irritation and Denies itchy eyes ENT Reports Normal hearing present, Denies headache(s), Denies nasal congestion, Denies nasal discharge, Denies post nasal drip and Denies sore throat Card Denies chest pain, Denies chest pain at rest, Denies chest pain with activity and Denies claudication Resp Denies chest congestion, Denies excessive phlegm production, Denies pain on inspiration, Denies pain with cough and Denies stridor Musc Denies myalgias Neuro Reports Normal hearing present and Denies headache(s) Endo Denies excessive sweating Jose Raul/Lymph Denies lymphadenopathy Aller/Immun Denies itchy eyes and Denies seasonal rhinorrhea Physical Exam Vital Signs: Last Vital Signs Pulse 73 09/27/23 09:38 BP 130/68 09/27/23 09:38 Pulse Ox 96 09/27/23 09:38 Oxygen Delivery Method Room Air 09/27/23 09:38 BMI result Body Mass Index 43.2 Const General: cooperative, healthy appearing, comfortable, no acute distress, well developed and alert Nutritional Appearance: obese Orientation/consciousness: patient oriented x3 Limitations: no limitations HEENT Head: Yes normal to inspection, Yes normocephalic and Yes atraumatic Ears: hearing grossly normal bilaterally and external ears normal Eyes General: appearance normal, both eyes and all related structures Eyelids: Yes eyelids normal Sclerae: sclerae normal EOM: EOMs intact bilaterally Neck Neck: Yes normal visual inspection and Yes no lymphadenopathy Lymphatic: no lymphadenopathy noted Chest Chest palpation & inspection: normal inspection of the chest Resp Effort & Inspection: normal respiratory effort, able to speak in complete sentences, no audible wheezes, no cough, no stridor, not tachypneic, no tripod positioning and no use of accessory muscles Auscultation: clear to auscultation bilaterally Cardio Jugular venous distension: no JVD Rate: regular rate Rhythm: regular rhythm Skin Other: warm, dry General skin exam: no rashes or lesions noted Neuro General: patient oriented x3 Cranial nerves: Yes Normal hearing present Cognition (Neuro): normal cognition Gait exam (Neuro): Normal gait present Extrem General: Yes normal to inspection, Yes capillary refill normal, Yes no clubbing, cyanosis or edema and Yes no pedal edema Psych Appearance: grossly normal and well kempt Speech and movement: Normal speech and movement present and Clear speech present Affect: normal affect Attitude: cooperative Thought process: Normal thought process present Thought content: Normal thought content present Insight: Good insight present (Psych) Judgement: Good judgement present (Psych) Assessment & Plan Assessment & Plan (1) Asthma: Code(s): J45.909 - Unspecified asthma, uncomplicated Category: Medical (2) Dyspnea: Code(s): R06.00 - Dyspnea, unspecified Category: Medical (3) PERRY on CPAP: Code(s): G47.33 - Obstructive sleep apnea (adult) (pediatric) Category: Medical (4) Daytime somnolence: Code(s): R40.0 - Somnolence Category: Medical Plan Reviewed in lab PSG which was negative for PERRY. Patient continues to be symptomatic despite switching symbicort to Dulera, will add Spiriva. Given patient has had persistent cough, will send for CXR. All questions were answered and patient is in agreement of plan. Will follow-up to review results and response to Spiriva. Orders: Orders XR chest 2V 09/27/23 R05.3 - Chronic cough Medications: New tiotropium bromide 1.25 mcg/actuation (Spiriva Respimat) 2 puffs inhalation DAILY 4 grams 3RF Coding Level of Care Code Est Pt Level 4 (24513) Diagnoses Asthma J45.909 Dyspnea R06.00 PERRY on CPAP G47.33 Daytime somnolence R40.0
== END 2023-09-27 10:15 | disposition home or self-care (01) ==
PROVIDERS: PCP Internal Medicine; Visit Provider Nurse Practitioner Family
DX: J45.909 Unspecified asthma, uncomplicated (principal); R06.00 Dyspnea, unspecified; G47.33 Obstructive sleep apnea (adult) (pediatric); R40.0 Somnolence
CPT/HCPCS: 99214

== ENCOUNTER → 2023-09-27 09:37 | Outpatient (BNVA) | payer MEDICAID, SELFPAY | PROVIDERS: PCP Internal Medicine; Visit Provider Nurse Practitioner Family | DX: J45.909 Unspecified asthma, uncomplicated (principal); R06.00 Dyspnea, unspecified; G47.33 Obstructive sleep apnea (adult) (pediatric); R40.0 Somnolence | CPT/HCPCS: 99212 ==

== ENCOUNTER 2023-10-29 12:53 | Outpatient (AMB) | payer MEDICAID, SELFPAY ==
--- NOTE | 2023-10-29 13:04 | A.OFFVIS_ITS ---
Intake Visit Reasons: Right knee pain Intake Note: Charo is a 62 year old female who presents with progressively worsening right knee pain and giving way. The patient states that she underwent right knee surgery several years ago. She states that she got fairly good relief from that procedure. The patient states that she reaggravated her right knee approximately 6 months ago. She twisted her knee and had acute onset of pain. She has failed the last 3 months of conservative treatment including a home exercise program, topical creams, Tylenol and anti-inflammatory medicines as well as THC edibles. The patient has tried wearing a knee brace which gives her minimal relief. She has had cortisone injections in the past which gave her no relief. The patient states that her right knee will give out several times per day. Allergies aspirin Allergy (Verified 10/29/23 13:07) Unknown metformin Adverse Reaction (Severe, Verified 10/29/23 13:07) Diarrhea Medication List - Last Reconciled 10/29/23 by George Jones MD albuterol sulfate 90 mcg/actuation (Ventolin HFA) 2 puffs inhalation QID amitriptyline 25 - 50 mg PO BEDTIME amlodipine 5 mg PO DAILY budesonide-formoterol 80-4.5 mcg/actuation (Symbicort) 2 puffs inhalation Q12H dulaglutide (Trulicity) 1.5 mg subcut QWEEK empagliflozin (Jardiance) 25 mg PO DAILY gabapentin mg PO TID insulin glargine (Lantus Solostar U-100 Insulin) 10 units subcut BID insulin lispro (Humalog KwikPen (U-100) Insulin) 12 units subcut TID lancets (FreeStyle Lancets) As directed lisinopril 40 mg PO DAILY loperamide 0 mg PO melatonin 3 mg PO BEDTIME metoprolol succinate ER 100 mg PO DAILY mometasone-formoterol 200-5 mcg/actuation (Dulera) 2 puffs inhalation BID omeprazole 40 mg PO DAILY rosuvastatin 40 mg PO BEDTIME tiotropium bromide 1.25 mcg/actuation (Spiriva Respimat) 2 puffs inhalation DAILY trazodone 50 - 100 mg PO BEDTIME PRN venlafaxine ER 150 mg PO QAM venlafaxine ER 0 mg PO vibegron (Gemtesa) 75 mg PO DAILY 30 days warfarin 5 mg PO DAILY [facility] Medical History Scalp irritation Scalp lesion DVT (deep venous thrombosis) Hypercoagulable state Hypertension Diabetes mellitus Surgical History Hx of right knee surgery History of surgical removal of lesion (~08/27/22) History of excision of lesion History of rotator cuff surgery History of cholecystectomy Family History Maternal Grandmother Breast cancer Sister Breast cancer Social History Household Members: Significant Other Housing: Apartment Alcohol intake: never Patient Tobacco Use Status: Former Tobacco user Tobacco use type: Cigarette Cigarette Packs Per Day: 0.5 Years Smoked: 1.5 Substance Use Type: Marijuana Current occupational status: disabled 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 Physical Exam Const Other: Well-nourished well-developed very friendly female awake alert and oriented x3 in no acute distress Extrem Other: Bilateral lower extremity examination shows good capillary refill, no skin lesions noted, normal sensation light touch Right knee examination shows a minimal effusion, minimal crepitus with range of motion, tenderness along her medial and lateral joint lines, positive Florin's test, no instability Results Reviewed Results Reviewed: Standing full weight-bearing x-rays of the patient's right knee show mild diffuse joint space narrowing, no acute bony abnormalities MRI of the patient's right knee shows mild diffuse degenerative changes as tear of the anterior horn of the lateral meniscus and a tear of the posterior horn of the medial meniscus, no acute bony abnormalities Assessment & Plan Assessment & Plan (1) Right knee pain: Code(s): M25.561 - Pain in right knee Category: Medical Plan Ms. Le presents with progressively worsening right knee pain and mechanical symptoms due to tearing of her medial and lateral menisci. I had a lengthy discussion with the patient regarding the treatment options. At this point she has failed continued non operative treatments. The risks and benefits of right knee arthroscopic surgery were discussed at length with the patient. The patient wishes to proceed with surgery. Surgery will likely involve right knee diagnostic arthroscopy with partial medial and lateral meniscectomies. The patient will be scheduled for next available date. She will continue with her activity modifications in the meantime. Feel free to call me at any time should questions regarding her orthopedic management arise. I spent 22 minutes in reviewing the patient's records and imaging studies, seeing the patient and documenting in the medical record. Medications: New methylprednisolone (Medrol (Sandip)) PO PER PK DIR 21 ea 0RF Coding Level of Care Code Est Pt Level 3 (69775) Diagnoses Right knee pain M25.561
== END 2023-10-29 13:26 | disposition home or self-care (01) ==
PROVIDERS: PCP Internal Medicine; Referring Provider Internal Medicine; Visit Provider Orthopaedic Surgery
DX: M25.561 Pain in right knee (principal); S83.281A Other tear of lateral meniscus, current injury, right knee, initial encounter; S83.241A Other tear of medial meniscus, current injury, right knee, initial encounter
CPT/HCPCS: 99214

== ENCOUNTER → 2023-10-29 12:53 | Outpatient (BNVA) | payer MEDICAID, SELFPAY | PROVIDERS: PCP Internal Medicine; Visit Provider Orthopaedic Surgery | DX: M25.561 Pain in right knee (principal) | CPT/HCPCS: 99212 ==

== ENCOUNTER 2023-11-22 05:53 | Day surgery (SDC) | payer MEDICAID, SELFPAY ==
--- NOTE | 2023-11-20 13:56 | P.CONAN_ITS ---
Documented by User: Jessica Shine NP 11/21/23 09:20 HPI - Anesthesia Eval Consult details Narrative: 63yo F for Right Knee Arthroscopy with partial medial meniscectomy and lateral meniscectomy Warfarin for hx DVT (Factor V). Will do lovenox bridge. [place] [facility] [place] Seen 09/2023 with Anesthesia Pre-Procedure Meds Is the patient on any of the following meds?: GLP1/DPP4 and SGLT2 Inhib PMFSH Active Problems Active Problems: All Active Problems Chronic cough (Acute) Right knee pain (Acute) Daytime somnolence (Acute) PERRY on CPAP (Acute) Dyspnea (Acute) Asthma (Acute) Arthritis of left knee (Acute) Renal cyst (Acute) Scalp irritation (Acute) Lower urinary tract symptoms (Acute) Mixed incontinence urge and stress (Acute) Scalp lesion (Acute) DVT (deep venous thrombosis) (Acute) Hypercoagulable state (Acute) Hypertension (Acute) Diabetes mellitus (Acute) Past Medical History Medical History Depression Elevated cholesterol Atrial dysrhythmia Asthma PERRY (obstructive sleep apnea) History of CVA (cerebrovascular accident) (~2004) Hx pulmonary embolism Factor V Leiden mutation Scalp irritation Scalp lesion DVT (deep venous thrombosis) Hypercoagulable state Hypertension Diabetes mellitus Family History Family History Maternal Grandmother Breast cancer Sister Breast cancer Surgical History Surgical History History of endometrial ablation Hx of lumbosacral spine surgery (11/09/22) History of inferior vena caval filter placement (~1978) Hx of right knee surgery History of surgical removal of lesion (~08/27/22) History of excision of lesion History of rotator cuff surgery History of cholecystectomy Social History Social History Household Members: Significant Other Housing: Apartment Are you a primary medicare coordinator to a significant other at home: No Do you presently have visiting nurse or other home services: No Alcohol intake: never Patient Tobacco Use Status: Former Tobacco user Tobacco use type: Cigarette Cigarette Packs Per Day: 0.5 Years Smoked: 1.5 Smoked in Last 30 Days: No Use of substances other than those prescribed or required for medical reasons: Yes Substance Use Type: Marijuana Substance Use Type Other:: edilbles Substance Use Frequency: Weekly Have you been hit, kicked, punched, or otherwise hurt by someone within the past year? If so, by whom?: No Are you DNR?: No Advance Directives: No Advance Directives Information Provided: Yes Advance Directives on File: No Healthcare Proxy: No Do you have thoughts of harming others: None Recently lost weight without trying: No Poor oral hygiene: No Current occupational status: disabled 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 Meds Allergies Allergy/AdvReac Type Severity Reaction Status Date / Time metformin AdvReac Severe Diarrhea Verified 11/22/23 06:42 aspirin AdvReac Intermediate Gastrointestinal Verified 11/22/23 06:42 Upset Home Medications ?Medication ?Instructions ?Recorded ?Confirmed ?Last Taken ?Type insulin glargine 100 unit/mL (3 72 unit subcut BEDTIME 09/15/20 11/22/23 11/20/23 History mL) subcutaneous pen (Lantus Solostar U-100 Insulin) insulin lispro 100 unit/mL 22 unit subcut TID 09/15/20 11/22/23 11/20/23 History subcutaneous pen (Humalog KwikPen (U-100) Insulin) lancets 28 gauge (FreeStyle #100 ea 09/15/20 10/29/23 Unknown History Lancets) amitriptyline 25 mg tablet 25 - 50 mg PO BEDTIME 08/16/22 11/22/23 11/20/23 History amlodipine 5 mg tablet 5 mg PO DAILY 08/16/22 11/22/23 11/22/23 History lisinopril 40 mg tablet 40 mg PO DAILY 08/16/22 11/22/23 11/20/23 History loperamide 2 mg capsule 2 mg PO DAILY PRN Diarrhea 08/16/22 11/21/23 Unknown History rosuvastatin 40 mg tablet 40 mg PO BEDTIME 08/16/22 11/22/23 11/20/23 History trazodone 100 mg tablet 100 mg PO BEDTIME PRN Insomnia 08/16/22 11/21/23 Unknown History venlafaxine 150 mg 150 mg PO QAM 08/16/22 11/22/23 11/21/23 History capsule,extended release 24 hr venlafaxine 37.5 mg 37.5 mg PO DAILY 08/16/22 11/22/23 11/21/23 History capsule,extended release 24 hr empagliflozin 25 mg tablet 25 mg PO DAILY 12/28/22 11/22/23 11/09/23 History (Jardiance) metoprolol succinate 50 mg 100 mg PO DAILY 04/19/23 11/22/23 11/22/23 History tablet,extended release 24 hr gabapentin 300 mg capsule 300 mg PO BID 04/30/23 11/22/23 11/22/23 History melatonin 3 mg tablet 3 mg PO BEDTIME 04/30/23 11/21/23 Unknown History omeprazole 40 mg capsule,delayed 40 mg PO DAILY 04/30/23 11/22/23 11/20/23 History release warfarin 5 mg tablet 5 mg PO DAILY 04/30/23 11/22/23 11/16/23 History dulaglutide 1.5 mg/0.5 mL 1.5 mg subcut QWEEK 09/27/23 11/22/23 11/09/23 History subcutaneous pen injector (Trulicity) enoxaparin 150 mg/mL subcutaneous 150 mg subcut DAILY 11/21/23 11/22/23 11/21/23 History syringe lorazepam 0.5 mg tablet 0.5 - 1 mg PO DAILY PRN anxiety 11/21/23 11/21/23 Unknown History Exam Pertinent Lab Results Pertinent Lab Results: BMP 06/2023 and CBC 04/2023 from outside facility, [place] Narrative Narrative: ECHO 2023 Conclusions: - 1. Normal LV ejection fraction 55-60% with impaired relaxation filling pattern 2. Normal cardiac valvular Doppler 3. Normal RV systolic pressure 4. No gross pericardial effusion CXR 10/2023 No acute abnormality Assessment and Plan Assessment Anesthesia Assessment: Chart Reviewed Documented by User: Daphne Reeder MD 11/22/23 07:32 HPI - Anesthesia Eval Anesthesia Pre-Procedure Meds If yes to any meds - educate patient: Pt education - increased risk of aspiration and/or euvolemic DKA and Pt education - possibility of cancelled proc at provider's discretion PMFSH Past Medical History Medical History Depression Elevated cholesterol Atrial dysrhythmia Asthma PERRY (obstructive sleep apnea) History of CVA (cerebrovascular accident) (~2004) Hx pulmonary embolism Factor V Leiden mutation Scalp irritation Scalp lesion DVT (deep venous thrombosis) Hypercoagulable state Hypertension Diabetes mellitus Family History Family History Maternal Grandmother Breast cancer Sister Breast cancer Family history of problems with anesthesia: No Surgical History Surgical History History of endometrial ablation Hx of lumbosacral spine surgery (11/09/22) History of inferior vena caval filter placement (~1978) Hx of right knee surgery History of surgical removal of lesion (~08/27/22) History of excision of lesion History of rotator cuff surgery History of cholecystectomy History of Problems with Anesthesia: No Social History Social History Household Members: Significant Other Housing: Apartment Are you a primary medicare coordinator to a significant other at home: No Do you presently have visiting nurse or other home services: No Alcohol intake: never Patient Tobacco Use Status: Former Tobacco user Tobacco use type: Cigarette Cigarette Packs Per Day: 0.5 Years Smoked: 1.5 Smoked in Last 30 Days: No Use of substances other than those prescribed or required for medical reasons: Yes Substance Use Type: Marijuana Substance Use Type Other:: edilbles Substance Use Frequency: Weekly Have you been hit, kicked, punched, or otherwise hurt by someone within the past year? If so, by whom?: No Are you DNR?: No Advance Directives: No Advance Directives Information Provided: Yes Advance Directives on File: No Healthcare Proxy: No Do you have thoughts of harming others: None Recently lost weight without trying: No Poor oral hygiene: No Current occupational status: disabled 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 Meds Allergies Allergy/AdvReac Type Severity Reaction Status Date / Time metformin AdvReac Severe Diarrhea Verified 11/22/23 06:42 aspirin AdvReac Intermediate Gastrointestinal Verified 11/22/23 06:42 Upset Home Medications ?Medication ?Instructions ?Recorded ?Confirmed ?Last Taken ?Type insulin glargine 100 unit/mL (3 72 unit subcut BEDTIME 09/15/20 11/22/23 11/20/23 History mL) subcutaneous pen (Lantus Solostar U-100 Insulin) insulin lispro 100 unit/mL 22 unit subcut TID 09/15/20 11/22/23 11/20/23 History subcutaneous pen (Humalog KwikPen (U-100) Insulin) lancets 28 gauge (FreeStyle #100 ea 09/15/20 10/29/23 Unknown History Lancets) amitriptyline 25 mg tablet 25 - 50 mg PO BEDTIME 08/16/22 11/22/23 11/20/23 History amlodipine 5 mg tablet 5 mg PO DAILY 08/16/22 11/22/23 11/22/23 History lisinopril 40 mg tablet 40 mg PO DAILY 08/16/22 11/22/23 11/20/23 History loperamide 2 mg capsule 2 mg PO DAILY PRN Diarrhea 08/16/22 11/21/23 Unknown History rosuvastatin 40 mg tablet 40 mg PO BEDTIME 08/16/22 11/22/23 11/20/23 History trazodone 100 mg tablet 100 mg PO BEDTIME PRN Insomnia 08/16/22 11/21/23 Unknown History venlafaxine 150 mg 150 mg PO QAM 08/16/22 11/22/23 11/21/23 History capsule,extended release 24 hr venlafaxine 37.5 mg 37.5 mg PO DAILY 08/16/22 11/22/23 11/21/23 History capsule,extended release 24 hr empagliflozin 25 mg tablet 25 mg PO DAILY 12/28/22 11/22/23 11/09/23 History (Jardiance) metoprolol succinate 50 mg 100 mg PO DAILY 04/19/23 11/22/23 11/22/23 History tablet,extended release 24 hr gabapentin 300 mg capsule 300 mg PO BID 04/30/23 11/22/23 11/22/23 History melatonin 3 mg tablet 3 mg PO BEDTIME 04/30/23 11/21/23 Unknown History omeprazole 40 mg capsule,delayed 40 mg PO DAILY 04/30/23 11/22/23 11/20/23 History release warfarin 5 mg tablet 5 mg PO DAILY 04/30/23 11/22/23 11/16/23 History dulaglutide 1.5 mg/0.5 mL 1.5 mg subcut QWEEK 09/27/23 11/22/23 11/09/23 History subcutaneous pen injector (Trulicity) enoxaparin 150 mg/mL subcutaneous 150 mg subcut DAILY 11/21/23 11/22/23 11/21/23 History syringe lorazepam 0.5 mg tablet 0.5 - 1 mg PO DAILY PRN anxiety 11/21/23 11/21/23 Unknown History Exam Airway Mallampati Class: II TM Dist: >3cm Neck ROM: Full Denture: Upper Partial: Lower Heart: rrr Lungs: cta Assessment and Plan Assessment Anesthesia Assessment: Anesthesia Plan Discussed Final Anesthetic Review Family History of Problems with Anesthesia: No History of Problems with Anesthesia: No NPO: Yes ASA Class: III (5 units reg insulinm pre op) Final Preanesthetic Review: No Changes in Pt Med Stat, Meds/Allgs Chart Reviewed, Consent Obtained/Reviewed and Anes Risks/Benef Reviewed Patient Risk: Intermediate Procedure Risk: Low Anesthetic Plan Anesthetic Plan: GA Disposition: Standard PACU
[2023-11-20 14:26] VITALS: BMI 43.2
[2023-11-21 09:28] VITALS: BMI 49.4
[2023-11-22] VITALS (14 sets, daily range): BP systolic 114–165; BP diastolic 40–62; PULSE 80–96; RESP 16; TEMP 36.9–37.1; O2SAT 94–99
--- NOTE | 2023-11-22 06:06 | ECG_ITS ---
Test Reason : Long QT, atrial arrhythmia Blood Pressure : / mmHG Vent. Rate : 091 BPM Atrial Rate : 091 BPM P-R Int : 220 ms QRS Dur : 068 ms QT Int : 568 ms P-R-T Axes : 034 033 035 degrees QTc Int : 698 ms Sinus rhythm with 1st degree A-V block Nonspecific T wave abnormality Prolonged QT Abnormal ECG No previous ECGs available Referred By: Jessica Shine Electronically Signed By:GINGER MONTEZ
[2023-11-22] MEDS: Lactated Ringers 1,000 ML 100 ML IVCONT (06:30)
[2023-11-22 06:45] LABS: Glucose, Whole Blood 287 mg/dL (60-115)
[2023-11-22 06:47] LABS: Prothrombin Time 11.7 SEC (11.1-13.3)
[2023-11-22] MEDS: Insulin Regular, Human 100 UNIT/ML 10 ML VIAL IVPUSH (07:04)
[2023-11-22 07:56] LABS: Glucose, Whole Blood 216 mg/dL (60-115)
--- NOTE | 2023-11-22 08:37 | P.BOP_ITS ---
Brief Operative Note Date of Service: 11/22/23 Pre-op diagnosis: Right knee medial meniscus tear, right knee lateral meniscus tear, right knee degenerative joint disease Post-op diagnosis: same Procedure: Right knee diagnostic arthroscopy with right knee arthroscopic partial medial and lateral meniscectomies, right knee arthroscopic chondroplasty of the undersurface of the patella Implants: none Surgeon: George Jones MD Anesthesia: GLMA Was an Ordering Box Operator used for this Procedure?: No Estimated blood loss (mL): 10 Pathology: none sent Condition: stable Disposition: PACU
--- NOTE | 2023-11-22 08:38 | P.OP_ITS ---
Operative Note Operative Note Date of Service: 11/22/23 Narrative: After the patient was identified as Charo Le and her right knee was initialed by myself they were brought to the operating room where general anesthesia was induced by the anesthesiologist in routine fashion. The patient was given 2 g of IV Ancef for infection prophylaxis. A formal time-out was completed. The patient's right lower extremity was prepped and draped in sterile fashion. Marcaine with epinephrine was injected into the planned incision sites as well as their right knee joint. A # 11 scalpel blade was used to make an anterolateral portal 1 cm proximal to the joint line and 1 cm lateral to the patellar tendon. Blunt trocar technique was used into the suprapatellar pouch with the knee in extension. Diagnostic arthroscopy showed multiple bands of thickened plica which would be excised at the end of the procedure. There were no loose bodies or abnormalities found in either the medial or lateral gutters. There were diffuse grades 1 and 2 degenerative changes of the undersurface of the patella as well as grade 1 degenerative changes of the trochlear groove. The patient's knee was flexed to 45 degrees and a valgus force was placed upon it. The medial compartment was entered. An anteromedial portal was made 1 cm proximal to the joint line and 1 cm medial to the patellar tendon. Probing of the medial meniscus showed a radial tear of the posterior horn. A partial medial meniscectomy was performed using the arthroscopic shaver. Following the partial meniscectomy the remainder of the meniscus tissue was stable. There were diffuse grades 1 and 2 degenerative changes of the medi al femoral condyle as well as diffuse grade 1 degenerative changes of the medial tibial plateau. The articular surfaces of the medial femoral condyle and medial tibial plateau were smooth so no chondroplasty was indicated. The patient's knee was then placed into a neutral position. There was no injury to the anterior cruciate ligament. The patient's knee was then placed into the figure of 4 position and the lateral compartment was entered. There were minimal degenerative changes of the lateral femoral condyle and lateral tibial plateau. There was a radial tear of the anterior horn of the lateral meniscus. A partial lateral meniscectomy was performed using the arthroscopic shaver. Following the partial meniscectomy the remainder of the meniscus tissue was stable. The patient's knee was once again brought into extension and the suprapatellar pouch was entered. The arthroscopic shaver and the ArthroCare Wand were used to excise the thickened bands of plica. The undersurface of the patella was then made smooth using the arthroscopic shaver. The articular surface of the trochlear groove was already smooth so no chondroplasty was indicated. The knee joint was irrigated and then drained. All arthroscopic instruments were removed. The 2 portals were closed with 3-0 nylon interrupted suture. The knee joint was injected with Marcaine. Dry sterile dressing and Trevon bandages were placed over the patient's knee. The patient was awoken and extubated in the operating room. They were transferred to the recovery room in stable condition.
[2023-11-22] MEDS: fentaNYL citrate/PF 100 MCG/2 ML VIAL 25 MCG IVPUSH ×8 (08:48→09:23)
[2023-11-22] MEDS: cefTRIAXone sodium 1 GM in 0.9 % Sodium Chloride 50 ML IV (09:38)
[2023-11-22 09:45] LABS: Glucose, Whole Blood 228 mg/dL (60-115)
== END 2023-11-22 11:02 | disposition home or self-care (01) ==
PROVIDERS: Nurse Practitioner; PCP Internal Medicine; Visit Provider Orthopaedic Surgery
PROC: (CPT 29870; principal; 2023-11-22 07:30)
DX: S83.241A Other tear of medial meniscus, current injury, right knee, initial encounter (principal); S83.281A Other tear of lateral meniscus, current injury, right knee, initial encounter; X50.1XXA Overexertion from prolonged static or awkward postures, initial encounter; E11.9 Type 2 diabetes mellitus without complications; I10 Essential (primary) hypertension; Z87.891 Personal history of nicotine dependence; Z86.718 Personal history of other venous thrombosis and embolism; Z79.01 Long term (current) use of anticoagulants; Z79.85 Long-term (current) use of injectable non-insulin antidiabetic drugs; Z79.4 Long term (current) use of insulin; Z79.02 Long term (current) use of antithrombotics/antiplatelets; Z79.899 Other long term (current) drug therapy; Y93.9 Activity, unspecified; Y92.9 Unspecified place or not applicable; Y99.9 Unspecified external cause status
CPT/HCPCS: 29880; 36415; 82947; 85610; 93005; J0131; J0171; J0690; J0696; J2405; J2704; J2795; J3010

== ENCOUNTER → 2023-11-22 05:53 | Outpatient (BNV) | payer MEDICAID, SELFPAY | PROVIDERS: PCP Internal Medicine; Visit Provider Orthopaedic Surgery | DX: S83.281A Other tear of lateral meniscus, current injury, right knee, initial encounter (principal); S83.241A Other tear of medial meniscus, current injury, right knee, initial encounter | CPT/HCPCS: 29880 ==

== ENCOUNTER 2023-12-05 11:17 | Outpatient (AMB) | payer MEDICAID, SELFPAY ==
--- NOTE | 2023-12-05 11:23 | A.OFFVIS_ITS ---
Intake Visit Reasons: PO RT knee 11/22/23 Intake Note: Charo presents for her 1st postoperative visit after undergoing right knee arthroscopic surgery on 11/22/2023. The patient reports mild intermittent discomfort in her knee. She denies any fevers or chills. She does not take any medicines for discomfort. Allergies metformin Adverse Reaction (Severe, Verified 12/05/23 11:26) Diarrhea aspirin Adverse Reaction (Intermediate, Verified 12/05/23 11:26) Gastrointestinal Upset Medication List - Last Reconciled 12/05/23 by George Jones MD amitriptyline 25 - 50 mg PO BEDTIME amlodipine 5 mg PO DAILY budesonide-formoterol 80-4.5 mcg/actuation (Symbicort) 2 puffs inhalation Q12H dulaglutide (Trulicity) 1.5 mg subcut QWEEK empagliflozin (Jardiance) 25 mg PO DAILY enoxaparin 150 mg subcut DAILY gabapentin 300 mg PO BID insulin glargine (Lantus Solostar U-100 Insulin) 72 units subcut BEDTIME insulin lispro (Humalog KwikPen (U-100) Insulin) 22 units subcut TID lancets (FreeStyle Lancets) As directed lisinopril 40 mg PO DAILY loperamide 2 mg PO DAILY PRN lorazepam 0.5 - 1 mg PO DAILY PRN melatonin 3 mg PO BEDTIME metoprolol succinate ER 100 mg PO DAILY mometasone-formoterol 200-5 mcg/actuation (Dulera) 2 puffs inhalation BID omeprazole 40 mg PO DAILY oxycodone 5 mg PO Q6H PRN rosuvastatin 40 mg PO BEDTIME tiotropium bromide 1.25 mcg/actuation (Spiriva Respimat) 2 puffs inhalation DAILY trazodone 100 mg PO BEDTIME PRN venlafaxine ER 150 mg PO QAM venlafaxine ER 37.5 mg PO DAILY vibegron (Gemtesa) 75 mg PO DAILY 30 days warfarin 5 mg PO DAILY PFSH Medical History Depression Elevated cholesterol Atrial dysrhythmia Asthma PERRY (obstructive sleep apnea) History of CVA (cerebrovascular accident) (~2004) Hx pulmonary embolism Factor V Leiden mutation Scalp irritation Scalp lesion DVT (deep venous thrombosis) Hypercoagulable state Hypertension Diabetes mellitus Surgical History History of endometrial ablation Hx of lumbosacral spine surgery (11/09/22) History of inferior vena caval filter placement (~1978) Hx of right knee surgery History of surgical removal of lesion (~08/27/22) History of excision of lesion History of rotator cuff surgery History of cholecystectomy Family History Maternal Grandmother Breast cancer Sister Breast cancer Social History Household Members: Significant Other Housing: Apartment Are you a primary memory care program resident to a significant other at home: No Do you presently have visiting nurse or other home services: No Alcohol intake: never Patient Tobacco Use Status: Former Tobacco user Tobacco use type: Cigarette Cigarette Packs Per Day: 0.5 Years Smoked: 1.5 Substance Use Type: Marijuana Current occupational status: disabled 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 Physical Exam Neuro Other: Right knee examination shows that the surgical incisions are well healed, no erythema, minimal discomfort with range of motion Assessment & Plan Assessment & Plan (1) Right knee pain: Code(s): M25.561 - Pain in right knee Category: Medical Plan Ms. Le continues to do well after undergoing left knee arthroscopic surgery on 11/22/2023. Her sutures were removed and Steri-Strips placed over her incisions. She will gradually progress to activities as tolerated. She will contact me prior to her follow-up appointment in 6 weeks should any questions or concerns arise. Feel free to call me at any time should questions regarding her orthopedic management arise. Coding Level of Care Code Global (76146) Diagnoses Right knee pain M25.561
== END 2023-12-05 11:54 | disposition home or self-care (01) ==
PROVIDERS: PCP Internal Medicine; Visit Provider Orthopaedic Surgery
DX: M25.561 Pain in right knee (principal)
CPT/HCPCS: 99024

== ENCOUNTER → 2023-12-05 11:17 | Outpatient (BNVA) | payer MEDICAID, SELFPAY | PROVIDERS: PCP Internal Medicine; Visit Provider Orthopaedic Surgery | DX: M25.561 Pain in right knee (principal); Z47.89 Encounter for other orthopedic aftercare; Z98.890 Other specified postprocedural states | CPT/HCPCS: 99212 ==

== ENCOUNTER 2023-12-11 07:31 | Outpatient (AMB) | payer MEDICAID, SELFPAY ==
--- NOTE | 2023-12-11 07:44 | A.OFFVIS_ITS ---
Intake Visit Reasons: 6w/PVR Intake Note: Patient presents today for follow up on: Incontinence Urology Medications: D/C Martínez Ko Allergies to Antibiotic:No Known Allergies Blood Thinner:Warfarin, Enoxaparin PVR: 0ml's School Bus Mechanic Required: No Allergies metformin Adverse Reaction (Severe, Verified 12/11/23 08:21) Diarrhea aspirin Adverse Reaction (Intermediate, Verified 12/11/23 08:21) Gastrointestinal Upset Medication List - Last Reconciled 12/11/23 by JERRY Mehta- amitriptyline 25 - 50 mg PO BEDTIME amlodipine 5 mg PO DAILY budesonide-formoterol 80-4.5 mcg/actuation (Symbicort) 2 puffs inhalation Q12H dulaglutide (Trulicity) 1.5 mg subcut QWEEK empagliflozin (Jardiance) 25 mg PO DAILY fesoterodine ER 4 mg PO DAILY 30 days gabapentin 300 mg PO BID insulin glargine (Lantus Solostar U-100 Insulin) 72 units subcut BEDTIME insulin lispro (Humalog KwikPen (U-100) Insulin) 22 units subcut TID lancets (FreeStyle Lancets) As directed lisinopril 40 mg PO DAILY loperamide 2 mg PO DAILY PRN lorazepam 0.5 - 1 mg PO DAILY PRN melatonin 3 mg PO BEDTIME metoprolol succinate ER 100 mg PO DAILY mometasone-formoterol 200-5 mcg/actuation (Dulera) 2 puffs inhalation BID omeprazole 40 mg PO DAILY rosuvastatin 40 mg PO BEDTIME tiotropium bromide 1.25 mcg/actuation (Spiriva Respimat) 2 puffs inhalation DAILY trazodone 100 mg PO BEDTIME PRN venlafaxine ER 150 mg PO QAM venlafaxine ER 37.5 mg PO DAILY warfarin 5 mg PO DAILY HPI Comments Details: Charo is a very pleasant 63-year-old female patient of Dr. Palmer. She has a past medical history of DVT, hypertension, and diabetes mellitus. She presents to the office today for follow-up of her mixed urinary incontinence. In discussion with the patient today she reports no improvement in lower urinary tract symptoms with 75 mg of Gemtesa daily. She continues to report urinary urgency, urinary frequency, and mixed urinary incontinence. Previous workup has included a retroperitoneal ultrasound noting bilateral kidneys with no calculi or hydronephrosis. There is a 17 x 16 x 14 mm cyst in the lower pole the right kidney, for which no specific imaging follow-up is needed per radiology report. The bladder is well distended and normal. Bilateral ureteral jets are demonstrated. Pre void bladder volume is approximately 150 mL. Postvoid bladder volume is approximately 10 mL. She has previously trialed oxybutynin and Myrbetriq with no improvement. She otherwise denies hematuria, dysuria, foul smelling urine, changes to urinary stream, flank pain, fever, and or chills. Discussed at length importance of managing diabetes for improvement in lower urinary tract symptoms. We discussed in office urodynamics for further assessement and evaluation. She otherwise offers no other issues or concerns at this time. [facility] Medical History Depression Elevated cholesterol Atrial dysrhythmia Asthma PERRY (obstructive sleep apnea) History of CVA (cerebrovascular accident) (~2004) Hx pulmonary embolism Factor V Leiden mutation Scalp irritation Scalp lesion DVT (deep venous thrombosis) Hypercoagulable state Hypertension Diabetes mellitus Surgical History History of endometrial ablation Hx of lumbosacral spine surgery (11/09/22) History of inferior vena caval filter placement (~1978) Hx of right knee surgery History of surgical removal of lesion (~08/27/22) History of excision of lesion History of rotator cuff surgery History of cholecystectomy Family History Maternal Grandmother Breast cancer Sister Breast cancer Social History Household Members: Significant Other Housing: Apartment Are you a primary wound care center consultant to a significant other at home: No Do you presently have visiting nurse or other home services: No Alcohol intake: never Patient Tobacco Use Status: Former Tobacco user Tobacco use type: Cigarette Cigarette Packs Per Day: 0.5 Years Smoked: 1.5 Substance Use Type: Marijuana Current occupational status: disabled 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 Review of Systems Const All systems reviewed & are unremarkable except as noted in HPI and below Denies chills and Denies fever(s) Eyes Reports no additional complaints ENT Reports no additional complaints Card Denies chest pain, Denies dyspnea and Denies dyspnea on exertion Resp Denies cough, Denies dyspnea and Denies dyspnea on exertion GI Denies hematochezia and Denies change in bowel habits Denies hematuria Musc Denies back pain and Denies limited range of motion Neuro Denies focal weakness and Denies convulsions Psych Denies depression and Denies mood swings Endo Reports no additional complaints Jose Raul/Lymph Reports as per HPI Physical Exam Const General: cooperative, healthy appearing, comfortable, no acute distress, well developed, alert and awake Nutritional Appearance: overweight Orientation/consciousness: patient oriented x3 Limitations: no limitations HEENT Head: Yes normal to inspection, Yes normocephalic and Yes atraumatic Ears: hearing grossly normal bilaterally Eyes General: appearance normal, both eyes and all related structures Neck Neck: Yes normal visual inspection and Yes trachea midline Chest Chest palpation & inspection: normal inspection of the chest Resp Effort & Inspection: normal respiratory effort and able to speak in complete sentences Cardio Rate: regular rate GI Inspection: Yes normal to inspection General: Yes no CVA tenderness Back/Spine/Pelvis Back: no CVA tenderness Skin General skin exam: no rashes or lesions noted Neuro General: patient oriented x3 Extrem General: Yes normal to inspection Psych Appearance: grossly normal and well kempt Mental Status: mental status grossly normal Speech and movement: Normal speech and movement present and Clear speech present Affect: normal affect Attitude: cooperative Thought process: Normal thought process present Thought content: Normal thought content present Insight: Fair insight present (Psych) Judgement: Fair judgement present (Psych) Office Procedures Post Void Residual Post Residual Void Post Void Residual (PVR): 0 [id number] Void Residual by ultrasound Results AMB Urinalysis, Automated UA Leukoctes 70 Onesimo/uL Last Edit by Patience Sibley on 12/11/23 08:02 UA Nitrite Last Edit by Patience Sibley on 12/11/23 08:02 UA Urobilinogen 0.2 mg/dL Last Edit by Patience Sibley on 12/11/23 08:02 UA Protein 15 mg/dL Last Edit by Patience Sibley on 12/11/23 08:02 UA pH 6.0 Last Edit by Patience Sibley on 12/11/23 08:02 UA Blood 0 Ganga/uL Last Edit by Patience Sibley on 12/11/23 08:02 UA Specific [place] 1.015 Last Edit by Patience Sibley on 12/11/23 08:02 UA Ketone Last Edit by Patience Sibley on 12/11/23 08:02 UA Bilirubin 0 mg/dL Last Edit by Patience Sibley on 12/11/23 08:02 UA Glucose 1000 mg/dL Last Edit by Patience Plummercharity on 12/11/23 08:02 Results Reviewed Results Reviewed: Laboratory Last Values Urine pH (Auto) 6.0 12/11/23 07:53 Specific [place] (Auto) 1.015 12/11/23 07:53 Urine Protein (Auto) 15 mg/dL 12/11/23 07:53 Glucose (UA)(Auto) 1000 mg/dL 12/11/23 07:53 Urine Blood (Auto) 0 Ganga/uL 12/11/23 07:53 Urine Bilirubin (Auto) 0 mg/dL 12/11/23 07:53 Urine Urobilinogen (Auto) 0.2 mg/dL 12/11/23 07:53 Leukocyte Esterase (Auto) 70 Onesimo/uL 12/11/23 07:53 Assessment & Plan Assessment & Plan (1) Lower urinary tract symptoms: Code(s): R39.9 - Unspecified symptoms and signs involving the genitourinary system Category: Medical (2) Mixed incontinence urge and stress: Code(s): N39.46 - Mixed incontinence Category: Medical Plan In office urinalysis results reviewed with the patient today; as noted above. PVR 0 mL. Stop Gemtesa 75mg Start fesoterodine as discussed and prescribed. Discussed potential causes for lower urinary tract symptoms patient is experiencing. Discussed at length importance of managing diabetes for improvement in lower urinary tract symptoms as well as overall health and well-being. Discussed bladder triggers/irritants. Discussed importance of timed/scheduled voiding to decreased episodes of incontinence. Discussed weight loss in correlation to extra weight putting pressure on the bladder making incontinence more likely. Will schedule for in office urodynamics for further assessment evaluation. Follow-up per doctor's orders or sooner with any issues, concerns, and or questions. 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 All questions were answered. Physical exam, labs, and imaging were discussed and reviewed in detail. As well as risks, benefits, and discussion of treatment choices. No major barriers to understanding were identified. The patient expressed understanding and agreement with the above treatment plan. The patient was made aware they should contact our office by phone for worsening of their current condition, the appearance of new symptoms, or with any questions or concerns. Compliance is encouraged with any medications and follow up testing that is ordered. It is a privilege to be allowed the opportunity to participate in? your urological care.? Again, if you have any questions or concerns If you have any questions or concerns please do not hesitate to contact me. The office is [phone]. This note is constructed using voice recognition software. While every effort has been made to ensure accuracy siebel solution architect errors may have been included. Yours sincerely, CORAZON Mehta Coding Level of Care Code Est Pt Level 4 (30137) Diagnoses Lower urinary tract symptoms R39.9 Mixed incontinence urge and stress N39.46 CPT Codes Post Residual Void - PVR CPT Code: [id number] Void Residual by ultrasound ([id number])
== END 2023-12-11 08:30 | disposition home or self-care (01) ==
PROVIDERS: PCP Internal Medicine; Visit Provider Nurse Practitioner Family
DX: Z13.9 Encounter for screening, unspecified (principal)
CPT/HCPCS: 99214

== ENCOUNTER → 2023-12-11 07:31 | Outpatient (BNVA) | payer MEDICAID, SELFPAY | PROVIDERS: PCP Internal Medicine; Visit Provider Nurse Practitioner Family | DX: R39.9 Unspecified symptoms and signs involving the genitourinary system (principal); N39.46 Mixed incontinence | CPT/HCPCS: 51798; 81003; 99212 ==

== ENCOUNTER 2024-01-16 08:07 | Outpatient (AMB) | payer MEDICAID, SELFPAY ==
--- NOTE | 2024-01-16 08:16 | MHC.OFFVIS ---
Intake Visit Reasons: PO RT knee 11/22/23 [id number] Intake Note: Charo is a 63 year old female who presents today for a post op appointment s/p right knee 11/22/23 . The patient reports mild intermittent discomfort in her right knee. She states that she notices the discomfort most when she is going up and down stairs. She denies any fevers or chills. She is not able to tolerate anti-inflammatory medicines. She has tried Tylenol which gives only mild relief. Allergies metformin Adverse Reaction (Severe, Verified 01/16/24 08:19) Diarrhea aspirin Adverse Reaction (Intermediate, Verified 01/16/24 08:19) Gastrointestinal Upset Medication List - Last Reconciled 01/16/24 by George Jones MD amitriptyline 25 - 50 mg PO BEDTIME amlodipine 5 mg PO DAILY budesonide-formoterol 80-4.5 mcg/actuation (Symbicort) 2 puffs inhalation Q12H dulaglutide (Trulicity) 1.5 mg subcut QWEEK empagliflozin (Jardiance) 25 mg PO DAILY fesoterodine ER 4 mg PO DAILY 30 days gabapentin 300 mg PO BID insulin glargine (Lantus Solostar U-100 Insulin) 72 units subcut BEDTIME insulin lispro (Humalog KwikPen (U-100) Insulin) 22 units subcut TID lancets (FreeStyle Lancets) As directed lisinopril 40 mg PO DAILY loperamide 2 mg PO DAILY PRN lorazepam 0.5 - 1 mg PO DAILY PRN melatonin 3 mg PO BEDTIME metoprolol succinate ER 100 mg PO DAILY mometasone-formoterol 200-5 mcg/actuation (Dulera) 2 puffs inhalation BID omeprazole 40 mg PO DAILY rosuvastatin 40 mg PO BEDTIME tiotropium bromide 1.25 mcg/actuation (Spiriva Respimat) 2 puffs inhalation DAILY trazodone 100 mg PO BEDTIME PRN venlafaxine ER 150 mg PO QAM venlafaxine ER 37.5 mg PO DAILY warfarin 5 mg PO DAILY [facility] Medical History Depression Elevated cholesterol Atrial dysrhythmia Asthma PERRY (obstructive sleep apnea) History of CVA (cerebrovascular accident) (~2004) Hx pulmonary embolism Factor V Leiden mutation Scalp irritation Scalp lesion DVT (deep venous thrombosis) Hypercoagulable state Hypertension Diabetes mellitus Surgical History History of endometrial ablation Hx of lumbosacral spine surgery (11/09/22) History of inferior vena caval filter placement (~1978) Hx of right knee surgery History of surgical removal of lesion (~08/27/22) History of excision of lesion History of rotator cuff surgery History of cholecystectomy Family History Maternal Grandmother Breast cancer Sister Breast cancer Social History Household Members: Significant Other Housing: Apartment Are you a primary aged or disabled carer to a significant other at home: No Do you presently have visiting nurse or other home services: No Alcohol intake: never Patient Tobacco Use Status: Former Tobacco user Tobacco use type: Cigarette Cigarette Packs Per Day: 0.5 Years Smoked: 1.5 Substance Use Type: Marijuana Current occupational status: disabled 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 Physical Exam Extrem Other: Right knee examination shows that the surgical incisions are well healed, no erythema, minimal crepitus with range of motion, mild discomfort with range of motion, no instability Assessment & Plan Assessment & Plan (1) Right knee pain: Code(s): M25.561 - Pain in right knee Category: Medical Plan Ms. Le continues to do well after undergoing right knee arthroscopic surgery on 11/22/2023. She will continue with her activity modifications. I discussed with the patient the fact that her symptoms should continue to improve over the next few months. I did give her a prescription for tramadol to help with her pain. She will contact me prior to her follow-up appointment in 2 months should any questions or concerns arise. Feel free to call me at any time should questions regarding her orthopedic management arise. Medications: New tramadol 50 mg PO Q12H PRN 30 tabs 0RF pain Coding Level of Care Code Global (48617) Diagnoses Right knee pain M25.561
== END 2024-01-16 08:28 | disposition home or self-care (01) ==
LOC: HO.HOS 08:08
PROVIDERS: PCP Internal Medicine; Visit Provider Orthopaedic Surgery
DX: M25.561 Pain in right knee (principal)
CPT/HCPCS: 99024

== ENCOUNTER → 2024-01-16 08:07 | Outpatient (BNVA) | payer MEDICAID, SELFPAY | PROVIDERS: PCP Internal Medicine; Visit Provider Orthopaedic Surgery | DX: M25.561 Pain in right knee (principal); Z47.89 Encounter for other orthopedic aftercare; Z98.890 Other specified postprocedural states | CPT/HCPCS: 99212 ==

== ENCOUNTER 2024-03-17 09:41 | Outpatient (AMB) | payer MEDICAID, SELFPAY ==
--- NOTE | 2024-03-17 09:55 | A.OFFVIS_ITS ---
Vital Signs 03/17/24 09:59 Height 5 ft 2 in Weight 270 lb BMI 49.4 Intake Visit Reasons: OV RT knee 11/22/23 Intake Note: Charo is a 63 year old female who presents today for a post op appointment after undergoing a right knee arthroscopy on 11/22/23. She reports mild intermittent discomfort in her right knee. She denies any fevers or chills. She does take tramadol as needed for her discomfort. She continues with her home exercise program. Allergies metformin Adverse Reaction (Severe, Verified 03/17/24 09:59) Diarrhea aspirin Adverse Reaction (Intermediate, Verified 03/17/24 09:59) Gastrointestinal Upset Medication List - Last Reconciled 03/17/24 by George Jones MD amitriptyline 25 - 50 mg PO BEDTIME amlodipine 5 mg PO DAILY budesonide-formoterol 80-4.5 mcg/actuation (Symbicort) 2 puffs inhalation Q12H dulaglutide (Trulicity) 1.5 mg subcut QWEEK empagliflozin (Jardiance) 25 mg PO DAILY fesoterodine ER 4 mg PO DAILY 30 days gabapentin 300 mg PO BID insulin glargine (Lantus Solostar U-100 Insulin) 72 units subcut BEDTIME insulin lispro (Humalog KwikPen (U-100) Insulin) 22 units subcut TID lancets (FreeStyle Lancets) As directed lisinopril 40 mg PO DAILY loperamide 2 mg PO DAILY PRN lorazepam 0.5 - 1 mg PO DAILY PRN melatonin 3 mg PO BEDTIME metoprolol succinate ER 100 mg PO DAILY mometasone-formoterol 200-5 mcg/actuation (Dulera) 2 puffs inhalation BID omeprazole 40 mg PO DAILY rosuvastatin 40 mg PO BEDTIME tiotropium bromide 1.25 mcg/actuation (Spiriva Respimat) 2 puffs inhalation DAILY tramadol 50 mg PO Q12H PRN trazodone 100 mg PO BEDTIME PRN venlafaxine ER 150 mg PO QAM venlafaxine ER 37.5 mg PO DAILY warfarin 5 mg PO DAILY PFSH Medical History Depression Elevated cholesterol Atrial dysrhythmia Asthma PERRY (obstructive sleep apnea) History of CVA (cerebrovascular accident) (~2004) Hx pulmonary embolism Factor V Leiden mutation Scalp irritation Scalp lesion DVT (deep venous thrombosis) Hypercoagulable state Hypertension Diabetes mellitus Surgical History History of endometrial ablation Hx of lumbosacral spine surgery (11/09/22) History of inferior vena caval filter placement (~1978) Hx of right knee surgery History of surgical removal of lesion (~08/27/22) History of excision of lesion History of rotator cuff surgery History of cholecystectomy Family History Maternal Grandmother Breast cancer Sister Breast cancer Social History Household Members: Significant Other Housing: Apartment Are you a primary career services director to a significant other at home: No Do you presently have visiting nurse or other home services: No Alcohol intake: never Patient Tobacco Use Status: Former Tobacco user Tobacco use type: Cigarette Cigarette Packs Per Day: 0.5 Years Smoked: 1.5 Substance Use Type: Marijuana Current occupational status: disabled 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 Physical Exam Vital Signs: BMI result Body Mass Index 49.4 Const Other: Well-nourished well-developed very friendly female awake alert and oriented x3 in no acute distress Extrem Other: Bilateral lower extremity examination shows good capillary refill, no skin lesions noted, normal sensation light touch Right knee examination shows that the surgical incisions are well healed, no erythema, minimal discomfort with range of motion, mild crepitus with range of motion, no instability Assessment & Plan Assessment & Plan (1) Arthritis of right knee: Code(s): M17.11 - Unilateral primary osteoarthritis, right knee Category: Medical Plan Ms. Le continues to do well after undergoing right knee arthroscopic surgery on 11/22/2023. She does have residual discomfort due to degenerative joint disease. I had a lengthy discussion with the patient regarding the tr eatment options. At this point the patient's symptoms are tolerable to her. We will hold off on a cortisone injection. She will contact me prior to her follow-up appointment in 3 months should any questions or concerns arise. Feel free to call me at any time should questions regarding her orthopedic management arise. I spent 21 minutes in reviewing the patient's records and imaging studies, genie joinering the patient and documenting in the medical record. Coding Level of Care Code Est Pt Level 3 (61544) Complex EM visit Add On G2211 Diagnoses Arthritis of right knee M17.11
[2024-03-17 09:59] VITALS: BMI 49.4
== END 2024-03-17 10:28 | disposition home or self-care (01) ==
PROVIDERS: PCP Internal Medicine; Visit Provider Orthopaedic Surgery
DX: M17.11 Unilateral primary osteoarthritis, right knee (principal)
CPT/HCPCS: 99213

== ENCOUNTER → 2024-03-17 09:41 | Outpatient (BNVA) | payer MEDICAID, SELFPAY | PROVIDERS: PCP Internal Medicine; Visit Provider Orthopaedic Surgery | DX: M17.11 Unilateral primary osteoarthritis, right knee (principal); Z98.890 Other specified postprocedural states | CPT/HCPCS: 99212 ==

== ENCOUNTER 2024-05-19 08:26 | Outpatient (REF) | payer MEDICAID, SELFPAY | END 2024-05-19 08:27 | disposition home or self-care (01) | LOC: HO.LNP 08:26 | PROVIDERS: PCP Internal Medicine; Visit Provider Urology | DX: N39.46 Mixed incontinence (principal) | CPT/HCPCS: 87086 ==

== ENCOUNTER 2024-06-17 10:11 | Outpatient (AMB) | payer MEDICAID, SELFPAY ==
--- NOTE | 2024-06-17 10:17 | MHC.OFFVIS ---
Vital Signs 06/17/24 10:21 Height 5 ft 2 in Weight 270 lb BMI 49.4 Intake Visit Reasons: OV RT knee 11/22/23 Intake Note: Charo is a 63 year old female who presents today for a follow up after undergoing a right knee arthroscopy on 11/22/23. The patient states that she was doing fairly well up until 2 weeks ago when she tripped and fell onto both of her knees. She describes her knee pains as achy in nature. She denies any fevers or chills. She has tried Tylenol and anti-inflammatory medicines which gave her mild relief. She has also been taking tramadol 2 times daily which gives her some relief. Allergies metformin Adverse Reaction (Severe, Verified 06/17/24 10:20) Diarrhea aspirin Adverse Reaction (Intermediate, Verified 06/17/24 10:20) Gastrointestinal Upset Medication List - Last Reconciled 06/17/24 by George Jones MD amitriptyline 25 - 50 mg PO BEDTIME amlodipine 5 mg PO DAILY budesonide-formoterol 80-4.5 mcg/actuation (Symbicort) 2 puffs inhalation Q12H dulaglutide (Trulicity) 1.5 mg subcut QWEEK empagliflozin (Jardiance) 25 mg PO DAILY fesoterodine ER 4 mg PO DAILY 30 days gabapentin 300 mg PO BID insulin glargine (Lantus Solostar U-100 Insulin) 72 units subcut BEDTIME insulin lispro (Humalog KwikPen (U-100) Insulin) 22 units subcut TID lancets (FreeStyle Lancets) As directed lisinopril 40 mg PO DAILY loperamide 2 mg PO DAILY PRN lorazepam 0.5 - 1 mg PO DAILY PRN melatonin 3 mg PO BEDTIME metoprolol succinate ER 100 mg PO DAILY mometasone-formoterol 200-5 mcg/actuation (Dulera) 2 puffs inhalation BID omeprazole 40 mg PO DAILY rosuvastatin 40 mg PO BEDTIME tiotropium bromide 1.25 mcg/actuation (Spiriva Respimat) 2 puffs inhalation DAILY tramadol 50 mg PO Q12H PRN trazodone 100 mg PO BEDTIME PRN venlafaxine ER 150 mg PO QAM venlafaxine ER 37.5 mg PO DAILY warfarin 5 mg PO DAILY PFSH Medical History Depression Elevated cholesterol Atrial dysrhythmia Asthma PERRY (obstructive sleep apnea) History of CVA (cerebrovascular accident) (~2004) Hx pulmonary embolism Factor V Leiden mutation Scalp irritation Scalp lesion DVT (deep venous thrombosis) Hypercoagulable state Hypertension Diabetes mellitus Surgical History History of endometrial ablation Hx of lumbosacral spine surgery (11/09/22) History of inferior vena caval filter placement (~1978) Hx of right knee surgery History of surgical removal of lesion (~08/27/22) History of excision of lesion History of rotator cuff surgery History of cholecystectomy Family History Maternal Grandmother Breast cancer Sister Breast cancer Social History Household Members: Significant Other Housing: Apartment Are you a primary regular senior care provider to a significant other at home: No Do you presently have visiting nurse or other home services: No Alcohol intake: never Patient Tobacco Use Status: Former Tobacco user Tobacco use type: Cigarette Cigarette Packs Per Day: 0.5 Years Smoked: 1.5 Substance Use Type: Marijuana Current occupational status: disabled 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 Physical Exam Vital Signs: BMI result Body Mass Index 49.4 Const Other: Well-nourished well-developed very friendly female awake alert and oriented x3 in no acute distress Extrem Other: Bilateral knee examination shows minimal effusions, mild crepitus with range of motion, tenderness along her medial joint lines, positive Florin's test, no instability Assessment & Plan Assessment & Plan (1) Bilateral knee pain: Code(s): M25.561 - Pain in right knee; M25.562 - Pain in left knee Category: Medical Plan Ms. Le presents with bilateral knee pains possibly due to medial meniscus tearing. I had a lengthy discussion with the patient regarding the treatment options. She wishes to hold off on an MRI or injection for now. I did increase her dosing schedule for tramadol. I also gave her a prescription for a Medrol Dosepak. She will contact me prior to her follow-up appointment in 3-4 weeks should her symptoms worsen in any way. Feel free to call me at any time should questions regarding her orthopedic management arise. I spent 21 minutes in reviewing the patient's records and imaging studies, seeing the patient and documenting in the medical record. Medications: New methylprednisolone (Medrol (Sandip)) PO PER PKG DIR 21 ea 0RF Changed From tramadol 50 mg PO Q12H PRN 30 tabs 0RF pain To tramadol 50 mg PO Q6H PRN 60 tabs 0RF pain Coding Level of Care Code Est Pt Level 3 (19650) Complex EM visit Add On G2211 Diagnoses Bilateral knee pain M25.561; M25.562
[2024-06-17 10:21] VITALS: BMI 49.4
== END 2024-06-17 10:39 | disposition home or self-care (01) ==
LOC: HO.HOS 10:12
PROVIDERS: PCP Internal Medicine; Visit Provider Orthopaedic Surgery
DX: M25.561 Pain in right knee (principal); M25.562 Pain in left knee
CPT/HCPCS: 99213

== ENCOUNTER → 2024-06-17 10:11 | Outpatient (BNVA) | payer MEDICAID, SELFPAY | PROVIDERS: PCP Internal Medicine; Visit Provider Orthopaedic Surgery | DX: M25.561 Pain in right knee (principal); M25.562 Pain in left knee | CPT/HCPCS: 99212 ==

== ENCOUNTER 2024-07-06 13:45 | Outpatient (AMB) | payer MEDICAID, SELFPAY ==
--- NOTE | 2024-07-06 14:30 | MHC.OFFVISCO ---
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 Allergies metformin Adverse Reaction (Severe, Verified 07/06/24 14:24) Diarrhea aspirin Adverse Reaction (Intermediate, Verified 07/06/24 14:24) Gastrointestinal Upset Medication List - Last Reconciled 07/06/24 by Patricia Holman RN amitriptyline 25 - 50 mg PO BEDTIME amlodipine 5 mg PO DAILY budesonide-formoterol 80-4.5 mcg/actuation (Symbicort) 2 puffs inhalation Q12H dulaglutide (Trulicity) 1.5 mg subcut QWEEK empagliflozin (Jardiance) 25 mg PO DAILY fesoterodine ER 4 mg PO DAILY 30 days gabapentin 300 mg PO BID insulin glargine (Lantus Solostar U-100 Insulin) 85 units subcutaneously bedtime; insulin lispro (Humalog KwikPen (U-100) Insulin) 32 units subcut TID lancets (FreeStyle Lancets) As directed lisinopril 40 mg PO DAILY loperamide 2 mg PO DAILY PRN lorazepam 0.5 - 1 mg PO DAILY PRN melatonin 3 mg PO BEDTIME metoprolol succinate ER 100 mg PO DAILY mometasone-formoterol 200-5 mcg/actuation (Dulera) 2 puffs inhalation BID naloxone 4 mg/actuation intranasal omeprazole 40 mg PO DAILY rosuvastatin 40 mg PO BEDTIME tiotropium bromide 1.25 mcg/actuation (Spiriva Respimat) 2 puffs inhalation DAILY tramadol 50 mg PO Q6H PRN trazodone 100 mg PO BEDTIME PRN venlafaxine ER 150 mg PO QAM venlafaxine ER 37.5 mg PO DAILY warfarin 5 mg PO DAILY Is last menstrual period known: Yes (1988 uterine ablation) Post menopausal: Yes Patient : No Nursing Note New pt from Dr Dave's office and from [facility] clinic- she wanted to come [place] [facility] [place] and Md in same place. 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 Pt re-educated on warfarin management to promote more INR stability, reviewed educational folder- given with good verbal understanding. INR: 4.6 out of therapeutic range Medications and supplements reviewed with explanation that some of her meds/supplements can affect her INR No changes in health, diet, medications, or supplements, Denies any signs and symptoms of bleeding or bruising or clotting. Bleeding, bruising, clotting discussed Nutritional guidance given - greens today Dose: hold today's dose then 5mg daily F/U INR: 07/09/24 Patient verbalizes understanding of instructions given Pt has chronic pain and her meds may effect her INR it was discussed if she requires more than usual pain meds to have more greens. She likes cranberry juice and will have 2 days where she has 3 glasses/ day =6 glasses/ wk - discussse just to have 1 glass / day Anti-Coag Initial Assessment Social Hx Patient Tobacco Use Status: Former Tobacco user Smoking End Date: 03/11/85 Tobacco use type: Cigarette Smoking packs per day: 0.5 alcohol intake: never Alcohol intake frequency: does not drink Housing: Apartment (3 steps on first floor ) current occupation: disability current occupational exposures/hazards: No Fall risk assessment: 2 + Falls in past year (falling a lot lately ) Cardiovascular Hx: HTN (hx with [facility] cardiology Dr Cardona- no real dx- question of some kind condition - to have new cardiology in near future ) and Other (has feelings that she may pass out at times and has fallen 4 times and not sure why) Lung Disease HX: Asthma (age [age] years old) and DVT/PE (right calf, 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 Illness/Depression: Yes (Anxiety/depression on meds ) Is last menstrual period known: Yes (1988 uterine ablation) Post menopausal: Yes Patient : No Surgeries: tonils, adnenoids wisdom teeth, right shoulder rotator cuff repair, green field filter 2004, cholecytectomy, vagina re-opened age 9 yrs old, right knee meniscus repair / arthoscopy, right pinky toe reconstructed age [age] years old, tubes in ears at 22 years for frequent infections. cysts x2 on head 2022 removed. Anti-Coag. 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 Able to state reason for taking Warfarin: Yes 2. Able to state Pain Management techniques: Yes 3. Able to state action of Warfarin.: Yes Able to state current dose, pill color, how and when Warfarin to be taken: Yes Able to identify signs of bleeding &/or clotting: Yes 4. Able to identify need to keep diet consistent in regard to vitamin K intake: Yes Able to state restriction on alcohol: Yes 5. Able to state need for compliance with PT/INR testing: Yes Describes rationale for carrying ID and wearing Medic Alert bracelet: Yes Patient instructed to monitor for excess bruising or signs/symptoms of clotting or bleeding: Yes 6. Able to state that there are drugs that interact with Warfin: Yes 7. Able to state the need to seek medical attention when illness/injury occur.: Yes Describes the need to avoid activities with high risk of injury: Yes 8. Able to state duration of treatment: Yes 9. Demonstrates understanding of notifying all providers of pending dental surgical, or other invasive procedures: Yes 10. Able to state Home Care instructions Questionnaires HAS-BLED Does the patient had uncontrolled Hypertension?: No Does the patient have renal disease?: No Does the patient have liver disease?: No Does the patient have a history of stroke?: Yes Has the patient had major bleeding or predisposition to bleeding?: No Does the patient have labile INRs?: Yes Is the patient over 65 years of age?: No Is the patient on medications that gives them a predisposition to bleeding?: Yes Does the patient use alcohol?: No HAS-BLED Score: 4 (pt uses CBD can raise the INR ) CHADSVASC Age: <65 Gender: Female Does the patient have a history of CHF?: No Does the patient have a history of Hypertension?: Yes Does the patient have a history of Stroke/TIA/Thromboembolism?: Yes Does the patient have a history of Vascular Disease (prior NC, PAD or aortic plaque)?: No Does the patient have a history of Diabetes?: Yes CHADS VACS Score: 5 Desean Prediction Score Rsk VTE Active Cancer: No Previous VTE, excluding superficial vein thrombosis: Yes Reduced mobility: Yes Already known Thrombophilic Condition: Yes (factor v) With-in last month Trauma and/or Surgery: No Elderly 70 year or older: No Heart and/or Respiratory Failure: No Acute Myocardial infarction and/or Ischemic Stroke: Yes Acute Infection and/or Rheumatologic Disorder: No Obesity (BMI 30 or greater): Yes Ongoing Hormonal Treatment: No Score: 11 Desean Score less than 4; Low Risk of VTE Desean Score 4 or greater; High Risk of VTE Coding Level of Care Code New Patient Level 2 Diagnoses Current use of anticoagulant therapy Z79.01 Assessment & Plan Assessment & Plan (1) Current use of anticoagulant therapy: Code(s): Z79.01 - intermediate (current) use of anticoagulants Medications: New [CBD] PO PRN pain [CBD] topical PRN pain
[2024-07-06 14:58] LABS: Prothrombin Time Whole Bld POC 55.6 sec (11.1-13.5); ~PT, ~INR - Anti Coag Clinic 4.6 (0.9-1.1)
[2024-07-06 15:39] VITALS: BP 116/60; PULSE 88
== END 2024-07-06 17:30 | disposition home or self-care (01) ==
LOC: HO.ACS 13:45
PROVIDERS: PCP Internal Medicine; Visit Provider Internal Medicine Medical Oncology
DX: Z79.01 Long term (current) use of anticoagulants (principal)

== ENCOUNTER → 2024-07-06 13:45 | Outpatient (BNVA) | payer MEDICAID, SELFPAY | PROVIDERS: PCP Internal Medicine; Visit Provider Internal Medicine Medical Oncology | DX: D68.59 Other primary thrombophilia (principal); Z79.01 Long term (current) use of anticoagulants; Z51.81 Encounter for therapeutic drug level monitoring | CPT/HCPCS: 85610; 99202 ==

== ENCOUNTER 2024-07-09 09:55 | Outpatient (AMB) | payer MEDICAID, SELFPAY ==
[2024-07-09 10:02] LABS: Prothrombin Time Whole Bld POC 35.7 sec (11.1-13.5)
--- NOTE | 2024-07-09 10:07 | MHC.OFFVISCO ---
Intake Intake Visit Reasons: Anticoagulation Allergies metformin Adverse Reaction (Severe, Verified 07/09/24 09:57) Diarrhea aspirin Adverse Reaction (Intermediate, Verified 07/09/24 09:57) Gastrointestinal Upset Medication List - Last Reconciled 07/09/24 by Violette Henson, RN amitriptyline 25 - 50 mg PO BEDTIME amlodipine 5 mg PO DAILY budesonide-formoterol 80-4.5 mcg/actuation (Symbicort) 2 puffs inhalation Q12H [CBD PO PRN] [CBD topical PRN] dulaglutide (Trulicity) 1.5 mg subcut QWEEK empagliflozin (Jardiance) 25 mg PO DAILY fesoterodine ER 4 mg PO DAILY 30 days gabapentin 300 mg PO BID insulin glargine (Lantus Solostar U-100 Insulin) 85 units subcutaneously bedtime; insulin lispro (Humalog KwikPen (U-100) Insulin) 32 units subcut TID lancets (FreeStyle Lancets) As directed lisinopril 40 mg PO DAILY loperamide 2 mg PO DAILY PRN lorazepam 0.5 - 1 mg PO DAILY PRN melatonin 3 mg PO BEDTIME metoprolol succinate ER 100 mg PO DAILY mometasone-formoterol 200-5 mcg/actuation (Dulera) 2 puffs inhalation BID naloxone 4 mg/actuation intranasal omeprazole 40 mg PO DAILY rosuvastatin 40 mg PO BEDTIME tiotropium bromide 1.25 mcg/actuation (Spiriva Respimat) 2 puffs inhalation DAILY tramadol 50 mg PO Q6H PRN trazodone 100 mg PO BEDTIME PRN venlafaxine ER 150 mg PO QAM venlafaxine ER 37.5 mg PO DAILY warfarin 5 mg See Protocol PO DAILY Nursing Note Pt to [facility] for second visit INR: 3.0 in therapeutic range of 2-3 Last INR 07/06/24 was 4.6. Medications and supplements reviewed No changes in health, diet, medications, or supplements, Denies any signs and symptoms of bleeding or bruising or clotting. Bleeding, bruising, clotting discussed Nutritional guidance given to increase her greens if she finds herself taking more tylenol than usual or if she is under stress Dose: resume usual dose of 5mg daily F/U INR: 2 weeks Patient verbalizes understanding of instructions given Anti-Coag Initial Assessment Social Hx Patient Tobacco Use Status: Former Tobacco user Tobacco use type: Cigarette Smoking packs per day: 0.5 alcohol intake: never Alcohol intake frequency: does not drink Cardiovascular Hx: HTN (hx with [facility] cardiology Dr Cardona- no real dx- question of some kind condition - to have new cardiology in near future ) and Other (has feelings that she may pass out at times and has fallen 4 times and not sure why) Lung Disease HX: Asthma (age [age] years old) and DVT/PE (right calf, 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 Illness/Depression: Yes (Anxiety/depression on meds ) Coding Level of Care Code Est Patient Level 1 Diagnoses Current use of anticoagulant therapy Z79.01 Results AMB INR Fingerstick AMB INR Fingerstick 3.0 Last Edit by Violette Henson RN on 07/09/24 10:02 interface delay Assessment & Plan Assessment & Plan (1) Current use of anticoagulant therapy: Code(s): Z79.01 - [facility]FP (current) use of anticoagulants Category: Medical
== END 2024-07-09 10:13 | disposition home or self-care (01) ==
LOC: HO.ACS 09:55
PROVIDERS: PCP Internal Medicine; Visit Provider Internal Medicine Medical Oncology
DX: Z79.01 Long term (current) use of anticoagulants (principal)

== ENCOUNTER → 2024-07-09 09:55 | Outpatient (BNVA) | payer MEDICAID, SELFPAY | PROVIDERS: PCP Internal Medicine; Visit Provider Internal Medicine Medical Oncology | DX: D68.59 Other primary thrombophilia (principal); Z79.01 Long term (current) use of anticoagulants; Z51.81 Encounter for therapeutic drug level monitoring | CPT/HCPCS: 85610; 99211 ==

== ENCOUNTER 2024-07-15 07:29 | Outpatient (AMB) | payer MEDICAID, SELFPAY ==
--- NOTE | 2024-07-15 07:49 | MHC.OFFVIS ---
Intake Visit Reasons: Bilateral knee pains Intake Note: Charo is a 63 year old female who presents with complaints of bilateral knee pains. She describes her pains as sharp in nature. She has undergone knee arthroscopic surgery in the past. Those surgeries gave her only temporary relief. She wishes to hold off on total knee replacement surgery for as long as possible. She has failed the last 3 months of conservative treatment which has included Tylenol, anti-inflammatory medicines, tramadol, a home exercise program, physical therapy exercises and topical creams. She has had cortisone injections in the past. The most recent cortisone injection gave her minimal relief. At this point her bilateral knee pains are interfering with her activities of daily living and her ability to sleep well through the night. Allergies metformin Adverse Reaction (Severe, Verified 07/09/24 09:57) Diarrhea aspirin Adverse Reaction (Intermediate, Verified 07/09/24 09:57) Gastrointestinal Upset [facility] Medical History Depression Elevated cholesterol Atrial dysrhythmia Asthma PERRY (obstructive sleep apnea) History of CVA (cerebrovascular accident) (~2004) Hx pulmonary embolism Factor V Leiden mutation Scalp irritation Scalp lesion DVT (deep venous thrombosis) Hypercoagulable state Hypertension Diabetes mellitus Surgical History History of endometrial ablation Hx of lumbosacral spine surgery (11/09/22) History of inferior vena caval filter placement (~1978) Hx of right knee surgery History of surgical removal of lesion (~08/27/22) History of excision of lesion History of rotator cuff surgery History of cholecystectomy Family History Maternal Grandmother Breast cancer Sister Breast cancer Social History Household Members: Significant Other Housing: Apartment (3 steps on first floor ) Are you a primary care director rn to a significant other at home: No Do you presently have visiting nurse or other home services: No Alcohol intake: never Patient Tobacco Use Status: Former Tobacco user Tobacco use type: Cigarette Cigarette Packs Per Day: 0.5 Years Smoked: 1.5 Substance Use Type: Marijuana Current occupational status: disabled Current occupation: disability Current occupational exposures/hazards: No Physical Exam Const Other: Well-nourished well-developed very friendly female awake alert and oriented x3 in no acute distress Extrem Other: Bilateral lower extremity examination shows good capillary refill, no skin lesions noted, normal sensation light touch Bilateral knee examination shows minimal effusions, palpable crepitus with range of motion, pain with range of motion, no instability Results Reviewed Results Reviewed: X-rays of the patient's bilateral knee show joint space narrowing, subchondral sclerosis, no acute bony abnormalities Assessment & Plan Assessment & Plan (1) Osteoarthritis of left knee: Code(s): M17.12 - Unilateral primary osteoarthritis, left knee Category: Medical (2) Osteoarthritis of right knee: Code(s): M17.11 - Unilateral primary osteoarthritis, right knee Category: Medical Plan Ms. Le presents with bilateral knee pains due to osteoarthritis. I had a lengthy discussion with the patient regarding the treatment options. She wishes to hold off on further surgery for as long as possible. I agree with this plan. She has had cortisone injections in the past which gave her minimal relief. Thus, I will see if her insurance company will cover a viscosupplementation injection, such as Durolane, for both of her knees. I will see her back once the injections are available. Feel free to call me at any time should questions regarding her orthopedic management arise. I spent 21 minutes in reviewing the patient's records and imaging studies, seeing the patient and documenting in the medical record. Medications: Refilled tramadol 50 mg PO Q6H PRN 60 tabs 0RF pain Coding Level of Care Code Est Pt Level 3 (17489) Complex EM visit Add On G2211 Diagnoses Osteoarthritis of left knee M17.12 Osteoarthritis of right knee M17.11
== END 2024-07-15 07:49 | disposition home or self-care (01) ==
LOC: HO.HOS 07:30
PROVIDERS: PCP Internal Medicine; Visit Provider Orthopaedic Surgery
DX: M17.0 Bilateral primary osteoarthritis of knee (principal)
CPT/HCPCS: 99213

== ENCOUNTER → 2024-07-15 07:29 | Outpatient (BNVA) | payer MEDICAID, SELFPAY | PROVIDERS: PCP Internal Medicine; Visit Provider Orthopaedic Surgery | DX: M17.0 Bilateral primary osteoarthritis of knee (principal) | CPT/HCPCS: 99212 ==

== ENCOUNTER 2024-07-23 07:55 | Outpatient (AMB) | payer MEDICAID, SELFPAY ==
[2024-07-23 08:46] LABS: Prothrombin Time Whole Bld POC 47.6 sec (11.1-13.5)
--- NOTE | 2024-07-23 08:53 | MHC.OFFVISCO ---
Intake Intake Visit Reasons: Anticoagulation Allergies metformin Adverse Reaction (Severe, Verified 07/23/24 08:37) Diarrhea aspirin Adverse Reaction (Intermediate, Verified 07/23/24 08:37) Gastrointestinal Upset Medication List - Last Reconciled 07/23/24 by Patricia Holman RN amitriptyline 25 - 50 mg PO BEDTIME amlodipine 5 mg PO DAILY budesonide-formoterol 80-4.5 mcg/actuation (Symbicort) 2 puffs inhalation Q12H [CBD PO PRN] [CBD topical PRN] dulaglutide (Trulicity) 1.5 mg subcut QWEEK empagliflozin (Jardiance) 25 mg PO DAILY fesoterodine ER 4 mg PO DAILY 30 days gabapentin 300 mg PO BID insulin glargine (Lantus Solostar U-100 Insulin) 85 units subcutaneously bedtime; insulin lispro (Humalog KwikPen (U-100) Insulin) 32 units subcut TID lancets (FreeStyle Lancets) As directed lisinopril 40 mg PO DAILY loperamide 2 mg PO DAILY PRN lorazepam 0.5 - 1 mg PO DAILY PRN melatonin 3 mg PO BEDTIME metoprolol succinate ER 100 mg PO DAILY mometasone-formoterol 200-5 mcg/actuation (Dulera) 2 puffs inhalation BID naloxone 4 mg/actuation intranasal omeprazole 40 mg PO DAILY rosuvastatin 40 mg PO BEDTIME tiotropium bromide 1.25 mcg/actuation (Spiriva Respimat) 2 puffs inhalation DAILY tramadol 50 mg PO Q6H PRN trazodone 100 mg PO BEDTIME PRN venlafaxine ER 150 mg PO QAM venlafaxine ER 37.5 mg PO DAILY warfarin 5 mg See Protocol PO DAILY Nursing Note INR 4.0 out of therapeutic range Medications and supplements reviewed Patient status: Pt has infection in nail area s/p hangnail that tore on a blanket, she has been putting topical ointment on it but now finger becoming more red and sore- she has been taking more pain med which could raise the INR pt to have urology study - she is not sure exactly what it is - [facility] will call urlogy to see if warfarin needs to be held. Medications or supplements: increase in tyelnol and tramadol Diet: good Denies any signs and symptoms of bleeding or clotting or unusual bruising Bleeding, bruising, clotting discussed Nutritional guidance given: enc more greens when taking more pain Dose: hold today then decrease 2.5mg saturday / 5mg x 6 days while taking pain med and possible antbx - pt to call with name of antb F/U INR Date : 1 week- same day as urolgoy study- Patient verbalizing understanding of instructions given. Anti-Coag Initial Assessment Social Hx Patient Tobacco Use Status: Former Tobacco user Tobacco use type: Cigarette Smoking packs per day: 0.5 alcohol intake: never Alcohol intake frequency: does not drink Cardiovascular Hx: HTN (hx with [facility] cardiology Dr Cardona- no real dx- question of some kind condition - to have new cardiology in near future ) and Other (has feelings that she may pass out at times and has fallen 4 times and not sure why) Lung Disease HX: Asthma (age [age] years old) and DVT/PE (right calf, 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 Illness/Depression: Yes (Anxiety/depression on meds ) Coding Level of Care Code Est Patient Level 1 Diagnoses Current use of anticoagulant therapy Z79.01 Results AMB INR Fingerstick AMB INR Fingerstick 4.0 Last Edit by Patricia Holman RN on 07/23/24 08:48 MANUAL Assessment & Plan Assessment & Plan (1) Current use of anticoagulant therapy: Code(s): Z79.01 - half-way (current) use of anticoagulants Category: Medical
== END 2024-07-23 08:59 | disposition home or self-care (01) ==
LOC: HO.ACS 07:55
PROVIDERS: PCP Internal Medicine; Visit Provider Internal Medicine Medical Oncology
DX: Z79.01 Long term (current) use of anticoagulants (principal)

== ENCOUNTER → 2024-07-23 07:55 | Outpatient (BNVA) | payer MEDICAID, SELFPAY | PROVIDERS: PCP Internal Medicine; Visit Provider Internal Medicine Medical Oncology | DX: D68.59 Other primary thrombophilia (principal); Z79.01 Long term (current) use of anticoagulants; Z51.81 Encounter for therapeutic drug level monitoring | CPT/HCPCS: 85610; 99211 ==

== ENCOUNTER 2024-07-30 14:45 | Outpatient (AMB) | payer MEDICAID, SELFPAY ==
--- NOTE | 2024-07-30 15:35 | MHC.OFFVIS ---
Intake Visit Reasons: UDS Allergies metformin Adverse Reaction (Severe, Verified 07/23/24 08:37) Diarrhea aspirin Adverse Reaction (Intermediate, Verified 07/23/24 08:37) Gastrointestinal Upset HPI Comments Details: 07/30/24 History of Present Illness The patient is a 63-year-old female presenting with urgency urinary incontinence and overactive bladder. She has been experiencing frequent urinary incontinence roughly three out of five days, indicating a pattern of worsening over time. Her reliance on adult diapers attests to the severity of incontinence episodes. The characteristic nature of her incontinence includes urgency that results in leakage before she can reach the restroom. She describes episodes frequently triggered by the urge to urinate, particularly noticeable when unable to suppress these urges while in motion or influenced by external factors such as the sound of water running. The patient has been on fezoterodine, which offers minor relief. Previous medication trials have been unsuccessful. Her incontinence occasionally overlaps with coughing but is not significant. The persistent urgency and leakage significantly disrupt her daily living, as her current management strategies have proven insufficient. Urinary Symptoms Review - Urgency urinary incontinence, occurring approximately three out of every five days - Severe incontinence leading to frequent changes of clothes - Triggers include sudden urinary urgency, sounds such as running water, and movements like getting in/out of a car - Use of adult diapers for incontinent episodes - Fezoterodine usage has reduced symptoms marginally - Previous medication was ineffective - Occasional mild leakage associated with coughing - Notable absence of nocturnal enuresis Results - Urodynamic study: No significant muscle spasms detected during the test. Discussion Notes During our discussion, I reviewed the results of the recent bladder test, which did not reveal any major muscle spasming, indicating the medication fezoterodine may be managing spasms effectively. However, substantial urgency persists, suggesting the need for more definitive intervention. I presented two main management options: attempting an alternative medication or proceeding with a Botox injection directly into the bladder muscle to relax it. After explaining the Botox procedure's benefits and implications, including the necessary post-procedural practices and follow-up requirements, the patient expressed willingness to try Botox. Consent for this option was discussed, emphasizing the moderate risks, including potential need for catheterization, and benefits expected, particularly in enhancing bladder capacity and controlling urgency. Authorization for the procedure through insurance will be initiated, and the Botox procedure will be performed initially as an outpatient procedure with my supervision. Plan The plan for the patient includes proceeding with a Botox injection into the bladder muscle to address her overactive bladder and urgency urinary incontinence, with the expectation to improve bladder control by relaxing its muscle and enhancing storage capacity. Continuation of fezoterodine during the two-week period following the procedure will assist with the transitional management of symptoms. The Botox injection is anticipated to be performed in an outpatient setting pending insurance authorization, with a regular six-month follow-up planned to reassess and potentially repeat the intervention. The risks, benefits, and alternatives have been carefully discussed, and the patient provided her consent for treatment. Patient Instructions - Continue taking fezoterodine medication for the next two weeks. - Follow up with the clinic to schedule the Botox procedure as soon as insurance approval is obtained. - Anticipate the effects of Botox to take up to two weeks to become noticeable. - Plan to use the restroom regularly, at least every three hours, even if no urge is felt post-procedure. - Observe any signs of increased symptoms and contact the clinic if they occur. - Ensure plans for transportation and support during the procedure, as discussed. Patient was informed and verbally consented to the use of an ambient scribe for clinic note documentation during this visit. 12/11/23--Charo is a very pleasant 63-year-old female patient of Dr. Palmer. She has a past medical history of DVT, hypertension, and diabetes mellitus. She presents to the office today for follow-up of her mixed urinary incontinence. In discussion with the patient today she reports no improvement in lower urinary tract symptoms with 75 mg of Gemtesa daily. She continues to report urinary urgency, urinary frequency, and mixed urinary incontinence. Previous workup has included a retroperitoneal ultrasound noting bilateral kidneys with no calculi or hydronephrosis. There is a 17 x 16 x 14 mm cyst in the lower pole the right kidney, for which no specific imaging follow-up is needed per radiology report. The bladder is well distended and normal. Bilateral ureteral jets are demonstrated. Pre void bladder volume is approximately 150 mL. Postvoid bladder volume is approximately 10 mL. She has previously trialed oxybutynin and Myrbetriq with no improvement. She otherwise denies hematuria, dysuria, foul smelling urine, changes to urinary stream, flank pain, fever, and or chills. Discussed at length importance of managing diabetes for improvement in lower urinary tract symptoms. We discussed in office urodynamics for further assessement and evaluation. She otherwise offers no other issues or concerns at this time. [facility] Medical History Depression Elevated cholesterol Atrial dysrhythmia Asthma PERRY (obstructive sleep apnea) History of CVA (cerebrovascular accident) (~2004) Hx pulmonary embolism Factor V Leiden mutation Scalp irritation Scalp lesion DVT (deep venous thrombosis) Hypercoagulable state Hypertension Diabetes mellitus Surgical History History of endometrial ablation Hx of lumbosacral spine surgery (11/09/22) History of inferior vena caval filter placement (~1978) Hx of right knee surgery History of surgical removal of lesion (~08/27/22) History of excision of lesion History of rotator cuff surgery History of cholecystectomy Family History Maternal Grandmother Breast cancer Sister Breast cancer Social History Household Members: Significant Other Housing: Apartment (3 steps on first floor ) Are you a primary intensive care unit registered nurse to a significant other at home: No Do you presently have visiting nurse or other home services: No Alcohol intake: never Patient Tobacco Use Status: Former Tobacco user Tobacco use type: Cigarette Cigarette Packs Per Day: 0.5 Years Smoked: 1.5 Substance Use Type: Marijuana Current occupational status: disabled Current occupation: disability Current occupational exposures/hazards: No Office Procedures Urodynamic Studies Consent Discussed risk and benefit or proposed procedure with the patient. Information consent for procedure given to the patient. Discussed technical aspects, risks, benefits and alternatives in full. Addressed all of the patient's questions and concerns regarding the procedure. The patient demonstrated knowledge and understanding. They wish to proceed with this procedure. Preparation The patient was prepped in the usual manner. A type caster was present and in the room. Genitalia was prepped with betadine solution in a sterile manner. Procedure Complex Uroflow Complex uroflow performed by: Annamarie Lerma Maximum urinary flow rate (mL/second): 13 Voiding time (seconds): 4mins 11 seconds Voided volume (mL): 150ml Residual urine (mL): 10ml Cystometrogram ? Vaginal/rectal catheter type: Vaginal First sensation at (mL): 125 mL First desire at (mL): 272 mL Strong desire to void occurred at (mL): 501 mL Strong desire detrusor pressure (cm H2O): 1.0 Maximum Capacity (mL): Patient did not achieve max capacity Voiding Summary Voided with max detrusor pressure of (cm H2O): 84 Maximum flow rate (mL/second): 22 mL/s Voided volume (mL): ? 255ml Calculated PVR: 215 mL (Large amount of urine leaked onto the floor and not measure. PVR is not accurately) Stress Testing Stress Test at 234 mL: Absent leak with Valsalva, Absent leak with cough Stress Test at 351 mL: Absent leak with Valsalva, Absent leak with cough Stress Test at 502 mL: Absent leak with Valsalva, Absent leak with cough DO Dry: Absent DO Wet: Absent Patient denied any urgency throughout the test. Prep: The patient was prepped in the usual manner. A type caster was present and in the room. Genitalia was prepped with betadine solution in a sterile manner. 72613-Oeqoeffsidnqkw w/ CURATOR OF COLLECTIONS 34700-Blehxjq-Bpxvvlorkrgh 62720-Mtze/Urinary Muscle Study 42061-Fsptm-Vxufgrvlm Pressure Test Procedure code (CPT) selection complete Office Meds nitrofurantoin monohydrate/macrocrystals 100 mg capsule Performing Provider: Annamarie Lerma MD [facility] Documented (not given) by: Denisse Vegas RN on 07/30/24 15:36 Reason Not Given: No Longer Necessary Assessment & Plan Assessment & Plan Orders: Orders AMB Urinalysis Automated Today Z13.9 - Encounter for screening, unspecified AMB Urodynamics Studies Today N39.46 - Mixed incontinence Coding CPT Codes Urodynamic Studies - CPT: 31873-Efywuxysrjqjqt w/ CURATOR OF COLLECTIONS ([id number]) Urodynamic Studies - CPT: 39381-Ivegvfr-Uawxpvvdedmm ([id number]) Urodynamic Studies - CPT: 07187-Wawp/Urinary Muscle Study ([id number]) Urodynamic Studies - CPT: 28340-Tucme-Nmwxhoiof Pressure Test ([id number])
== END 2024-07-30 16:08 | disposition home or self-care (01) ==
LOC: HO.HUSH 14:46
PROVIDERS: PCP Internal Medicine; Visit Provider Urology
DX: N32.81 Overactive bladder (principal); N39.46 Mixed incontinence
CPT/HCPCS: 51728; 51741; 51784; 51797

== ENCOUNTER → 2024-07-30 14:45 | Outpatient (BNVA) | payer MEDICAID, SELFPAY | PROVIDERS: PCP Internal Medicine; Visit Provider Urology | DX: N32.81 Overactive bladder (principal) | CPT/HCPCS: 51728; 51741; 51784; 51797; 99212 ==

== ENCOUNTER 2024-08-06 08:39 | Outpatient (AMB) | payer MEDICAID, SELFPAY ==
[2024-08-06 08:56] LABS: Prothrombin Time Whole Bld POC 46.7 sec (11.1-13.5); ~PT, ~INR - Anti Coag Clinic 3.9 (0.9-1.1)
--- NOTE | 2024-08-06 09:06 | MHC.OFFVISCO ---
Intake Intake Visit Reasons: Anticoagulation Allergies metformin Adverse Reaction (Severe, Verified 08/06/24 08:48) Diarrhea aspirin Adverse Reaction (Intermediate, Verified 08/06/24 08:48) Gastrointestinal Upset Medication List - Last Reconciled 08/06/24 by Patricia Holman RN amitriptyline 25 - 50 mg PO BEDTIME amlodipine 5 mg PO DAILY budesonide-formoterol 80-4.5 mcg/actuation (Symbicort) 2 puffs inhalation Q12H [CBD PO PRN] [CBD topical PRN] cephalexin 500 mg PO TID dulaglutide (Trulicity) 1.5 mg subcut QWEEK empagliflozin (Jardiance) 25 mg PO DAILY fesoterodine ER 4 mg PO DAILY 30 days gabapentin 300 mg PO BID insulin glargine (Lantus Solostar U-100 Insulin) 85 units subcutaneously bedtime; insulin lispro (Humalog KwikPen (U-100) Insulin) 32 units subcut TID lancets (FreeStyle Lancets) As directed lisinopril 40 mg PO DAILY loperamide 2 mg PO DAILY PRN lorazepam 0.5 - 1 mg PO DAILY PRN melatonin 3 mg PO BEDTIME metoprolol succinate ER 100 mg PO DAILY mometasone-formoterol 200-5 mcg/actuation (Dulera) 2 puffs inhalation BID naloxone 4 mg/actuation intranasal omeprazole 40 mg PO DAILY rosuvastatin 40 mg PO BEDTIME tiotropium bromide 1.25 mcg/actuation (Spiriva Respimat) 2 puffs inhalation DAILY tramadol 50 mg PO Q6H PRN trazodone 100 mg PO BEDTIME PRN venlafaxine ER 150 mg PO QAM venlafaxine ER 37.5 mg PO DAILY warfarin 5 mg See Protocol PO DAILY Nursing Note INR 3.9 out of therapeutic range- most likely elevated from antibiotic she completed a week ago and taking more tramadol for knee pain Medications and supplements reviewed Patient status: having knee injections today providing INR not to high then 2 more injections weekly Medications or supplements: tramadol for knee pain Diet: good Denies any signs and symptoms of bleeding or clotting or unusual bruising Bleeding, bruising, clotting discussed Nutritional guidance given: enc and extra serving or 2 of more greens while taking more tramadol Dose: hold today's dose then try decreased dose again 2.5mg x 1 day/ 5mg x 6 days now off antibiotics x 2 weeks F/U INR Date : next week prior next injectoin?? Patient verbalizing understanding of instructions given. Anti-Coag Initial Assessment Social Hx Patient Tobacco Use Status: Former Tobacco user Tobacco use type: Cigarette Smoking packs per day: 0.5 alcohol intake: never Alcohol intake frequency: does not drink Cardiovascular Hx: HTN (hx with [facility] cardiology Dr Cardona- no real dx- question of some kind condition - to have new cardiology in near future ) and Other (has feelings that she may pass out at times and has fallen 4 times and not sure why) Lung Disease HX: Asthma (age [age] years old) and DVT/PE (right calf, 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 Illness/Depression: Yes (Anxiety/depression on meds ) Coding Level of Care Code Est Patient Level 1 Diagnoses Current use of anticoagulant therapy Z79.01 Results AMB INR Fingerstick AMB INR Fingerstick 3.9 Last Edit by Patricia Holman RN on 08/06/24 08:57 MANUAL ENTRY Assessment & Plan Assessment & Plan (1) Current use of anticoagulant therapy: Code(s): Z79.01 - termination clerk (current) use of anticoagulants Category: Medical
== END 2024-08-06 09:11 | disposition home or self-care (01) ==
LOC: HO.ACS 08:39
PROVIDERS: PCP Internal Medicine; Visit Provider Internal Medicine Medical Oncology
DX: Z79.01 Long term (current) use of anticoagulants (principal)

== ENCOUNTER → 2024-08-06 08:39 | Outpatient (BNVA) | payer MEDICAID, SELFPAY | PROVIDERS: PCP Internal Medicine; Visit Provider Internal Medicine Medical Oncology | DX: D68.59 Other primary thrombophilia (principal); M17.0 Bilateral primary osteoarthritis of knee; Z79.01 Long term (current) use of anticoagulants; Z51.81 Encounter for therapeutic drug level monitoring | CPT/HCPCS: 20610; 85610; 99211; 99212; J2003; J7323 ==

== ENCOUNTER 2024-08-06 09:11 | Outpatient (AMB) | payer MEDICAID, SELFPAY ==
[2024-08-06 09:29] VITALS: BMI 49.4
--- NOTE | 2024-08-06 09:29 | MHC.OFFVIS ---
Vital Signs 08/06/24 09:29 Height 5 ft 2 in Weight 270 lb BMI 49.4 Intake Visit Reasons: Inj-Bilateral Knee Euflexxa #1 Intake Note: Charo is a 63 year old female who presents today for her Bilateral Knee Euflexxa #1. She describes her knee pains as sharp in nature. She has had cortisone injections in the past which gave her minimal relief. She has also tried physical therapy exercises which aggravated her pain. She has tried Tylenol and anti-inflammatory medicines which gave her minimal relief. Allergies metformin Adverse Reaction (Severe, Verified 08/06/24 08:48) Diarrhea aspirin Adverse Reaction (Intermediate, Verified 08/06/24 08:48) Gastrointestinal Upset Medication List - Last Reconciled 08/06/24 by George Jones MD amitriptyline 25 - 50 mg PO BEDTIME amlodipine 5 mg PO DAILY budesonide-formoterol 80-4.5 mcg/actuation (Symbicort) 2 puffs inhalation Q12H [CBD PO PRN] [CBD topical PRN] dulaglutide (Trulicity) 1.5 mg subcut QWEEK empagliflozin (Jardiance) 25 mg PO DAILY fesoterodine ER 4 mg PO DAILY 30 days gabapentin 300 mg PO BID insulin glargine (Lantus Solostar U-100 Insulin) 85 units subcutaneously bedtime; insulin lispro (Humalog KwikPen (U-100) Insulin) 32 units subcut TID lancets (FreeStyle Lancets) As directed lisinopril 40 mg PO DAILY loperamide 2 mg PO DAILY PRN lorazepam 0.5 - 1 mg PO DAILY PRN melatonin 3 mg PO BEDTIME metoprolol succinate ER 100 mg PO DAILY mometasone-formoterol 200-5 mcg/actuation (Dulera) 2 puffs inhalation BID naloxone 4 mg/actuation intranasal omeprazole 40 mg PO DAILY rosuvastatin 40 mg PO BEDTIME tiotropium bromide 1.25 mcg/actuation (Spiriva Respimat) 2 puffs inhalation DAILY tramadol 50 mg PO Q6H PRN trazodone 100 mg PO BEDTIME PRN venlafaxine ER 150 mg PO QAM venlafaxine ER 37.5 mg PO DAILY warfarin 5 mg See Protocol PO DAILY PFSH Medical History Depression Elevated cholesterol Atrial dysrhythmia Asthma PERRY (obstructive sleep apnea) History of CVA (cerebrovascular accident) (~2004) Hx pulmonary embolism Factor V Leiden mutation Scalp irritation Scalp lesion DVT (deep venous thrombosis) Hypercoagulable state Hypertension Diabetes mellitus Surgical History History of endometrial ablation Hx of lumbosacral spine surgery (11/09/22) History of inferior vena caval filter placement (~1978) Hx of right knee surgery History of surgical removal of lesion (~08/27/22) History of excision of lesion History of rotator cuff surgery History of cholecystectomy Family History Maternal Grandmother Breast cancer Sister Breast cancer Social History Household Members: Significant Other Housing: Apartment (3 steps on first floor ) Are you a primary career orientation teacher to a significant other at home: No Do you presently have visiting nurse or other home services: No Alcohol intake: never Patient Tobacco Use Status: Former Tobacco user Tobacco use type: Cigarette Cigarette Packs Per Day: 0.5 Years Smoked: 1.5 Substance Use Type: Marijuana Current occupational status: disabled Current occupation: disability Current occupational exposures/hazards: No Physical Exam Vital Signs: BMI result Body Mass Index 49.4 Const Other: Well-nourished well-developed very friendly female awake alert and oriented x3 in no acute distress Extrem Other: Bilateral lower extremity examination shows good capillary refill, no skin lesions noted, normal sensation light touch Bilateral knee examination shows minimal effusions, palpable crepitus with range of motion, pain with range of motion, no instability Office Procedures AMB Joint Injection/Aspiration Joint Injection/Aspiration Primary Site: right knee Prep: site was prepped using aseptic technique Injected: 20 mg of (Euflexxa viscosupplementation) and 1% plain lidocaine Procedure: The patient tolerated the procedure well Coding 19445 - Large joint Procedure code (CPT) selection complete AMB Joint Injection/Aspiration Joint Injection/Aspiration Primary Site: left knee Prep: site was prepped using aseptic technique Injected: 20 mg of (Euflexxa viscosupplementation) and 1% plain lidocaine Procedure: The patient tolerated the procedure well Coding 93500 - Large joint Procedure code (CPT) selection complete Results AMB INR Fingerstick AMB INR Fingerstick 3.9 Last Edit by Patricia Holman RN on 08/06/24 08:57 MANUAL ENTRY Results Reviewed Results Reviewed: X-rays of the patient's bilateral knees taken previously show joint space narrowing, subchondral sclerosis, no acute bony abnormalities Assessment & Plan Assessment & Plan (1) Osteoarthritis of left knee: Code(s): M17.12 - Unilateral primary osteoarthritis, left knee Category: Medical (2) Osteoarthritis of right knee: Code(s): M17.11 - Unilateral primary osteoarthritis, right knee Category: Medical Plan Ms. Le presents with bilateral knee pains due to osteoarthritis. The risks and benefits of bilateral knee Euflexxa injections were discussed at length with the patient. The patient wished to proceed. She tolerated the 1st set of bilateral knee Euflexxa viscosupplementation injections well. She will follow up next week as scheduled. Feel free to call me at any time should questions regarding her orthopedic management arise. I spent 20 minutes in reviewing the patient's records and imaging studies, seeing the patient and documenting in the medical record. Orders: Orders AMB Joint Injection/Aspiration Today M17.12 - Unilateral primary osteoarthritis, left knee AMB Joint Injection/Aspiration Today M17.11 - Unilateral primary osteoarthritis, right knee Coding Level of Care Code Est Pt Level 3 (30684) Complex EM visit Add On G2211 Diagnoses Osteoarthritis of left knee M17.12 Osteoarthritis of right knee M17.11 CPT Codes Coding - 30668 Large joint: 75685 - Large joint ([id number]) Coding - 20049 Large joint: 79064 - Large joint ([id number])
== END 2024-08-06 10:06 | disposition home or self-care (01) ==
LOC: HO.HOS 09:12
PROVIDERS: PCP Internal Medicine; Visit Provider Orthopaedic Surgery
DX: M17.0 Bilateral primary osteoarthritis of knee (principal)
CPT/HCPCS: 20610; 99213

== ENCOUNTER 2024-08-12 08:18 | Outpatient (AMB) | payer MEDICAID, SELFPAY ==
--- NOTE | 2024-08-12 08:32 | MHC.OFFVISCO ---
Intake Intake Visit Reasons: Anticoagulation Allergies metformin Adverse Reaction (Severe, Verified 08/12/24 08:26) Diarrhea aspirin Adverse Reaction (Intermediate, Verified 08/12/24 08:26) Gastrointestinal Upset Medication List - Last Reconciled 08/12/24 by Tabatha Mack RN amitriptyline 25 - 50 mg PO BEDTIME amlodipine 5 mg PO DAILY budesonide-formoterol 80-4.5 mcg/actuation (Symbicort) 2 puffs inhalation Q12H [CBD PO PRN] [CBD topical PRN] dulaglutide (Trulicity) 1.5 mg subcut QWEEK empagliflozin (Jardiance) 25 mg PO DAILY fesoterodine ER 4 mg PO DAILY 30 days gabapentin 300 mg PO BID insulin glargine (Lantus Solostar U-100 Insulin) 85 units subcutaneously bedtime; insulin lispro (Humalog KwikPen (U-100) Insulin) 32 units subcut TID lancets (FreeStyle Lancets) As directed lisinopril 40 mg PO DAILY loperamide 2 mg PO DAILY PRN lorazepam 0.5 - 1 mg PO DAILY PRN melatonin 3 mg PO BEDTIME metoprolol succinate ER 100 mg PO DAILY mometasone-formoterol 200-5 mcg/actuation (Dulera) 2 puffs inhalation BID naloxone 4 mg/actuation intranasal omeprazole 40 mg PO DAILY rosuvastatin 40 mg PO BEDTIME tiotropium bromide 1.25 mcg/actuation (Spiriva Respimat) 2 puffs inhalation DAILY tramadol 50 mg PO Q6H PRN trazodone 100 mg PO BEDTIME PRN venlafaxine ER 150 mg PO QAM venlafaxine ER 37.5 mg PO DAILY warfarin 5 mg See Protocol PO DAILY Nursing Note INR: 2.5- in therapeutic range of 2-3 Medications and supplements reviewed No changes in health, diet, medications, or supplements, Denies any signs and symptoms of bleeding or bruising or clotting. Bleeding, bruising, clotting discussed Nutritional guidance given Dose: 5mg x 6, 2.5mg x 1 F/U INR: 1 week Patient verbalizes understanding of instructions given pt had gel injections both knees last week Anti-Coag Initial Assessment Social Hx Patient Tobacco Use Status: Former Tobacco user Tobacco use type: Cigarette Smoking packs per day: 0.5 alcohol intake: never Alcohol intake frequency: does not drink Cardiovascular Hx: HTN (hx with [facility] cardiology Dr Cardona- no real dx- question of some kind condition - to have new cardiology in near future ) and Other (has feelings that she may pass out at times and has fallen 4 times and not sure why) Lung Disease HX: Asthma (age [age] years old) and DVT/PE (right calf, 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 Illness/Depression: Yes (Anxiety/depression on meds ) Coding Level of Care Code Est Patient Level 1 Diagnoses Current use of anticoagulant therapy Z79.01 Assessment & Plan Assessment & Plan (1) Current use of anticoagulant therapy: Code(s): Z79.01 - USP (current) use of anticoagulants Category: Medical
[2024-08-12 08:33] LABS: Prothrombin Time Whole Bld POC 30.4 sec (11.1-13.5); ~PT, ~INR - Anti Coag Clinic 2.5 (0.9-1.1)
== END 2024-08-12 08:36 | disposition home or self-care (01) ==
LOC: HO.ACS 08:18
PROVIDERS: PCP Internal Medicine; Visit Provider Internal Medicine Medical Oncology
DX: Z79.01 Long term (current) use of anticoagulants (principal)

== ENCOUNTER → 2024-08-12 08:18 | Outpatient (BNVA) | payer MEDICAID, SELFPAY | PROVIDERS: PCP Internal Medicine; Visit Provider Internal Medicine Medical Oncology | DX: D68.59 Other primary thrombophilia (principal); M17.0 Bilateral primary osteoarthritis of knee; Z79.01 Long term (current) use of anticoagulants; Z51.81 Encounter for therapeutic drug level monitoring | CPT/HCPCS: 20610; 85610; 99211; 99212; J2003; J7323 ==

== ENCOUNTER 2024-08-12 08:44 | Outpatient (AMB) | payer MEDICAID, SELFPAY ==
--- NOTE | 2024-08-12 09:11 | A.OFFVIS_ITS ---
Vital Signs 08/12/24 09:22 Height 5 ft 2 in Weight 270 lb BMI 49.4 Intake Visit Reasons: Inj-Bilateral Knee Euflexxa #2 Intake Note: Charo is a 63 year old female who presents today for her first dose of her bilateral knee Euflexxa injections. She continues with her home exercise program. She got mild relief from the 1st set of injections. She has tried Tylenol, anti-inflammatory medicines and tramadol which gave her mild relief. She wishes to hold off on surgery if at all possible. Allergies metformin Adverse Reaction (Severe, Verified 08/12/24 09:25) Diarrhea aspirin Adverse Reaction (Intermediate, Verified 08/12/24 09:25) Gastrointestinal Upset Medication List - Last Reconciled 08/12/24 by George Jones MD amitriptyline 25 - 50 mg PO BEDTIME amlodipine 5 mg PO DAILY budesonide-formoterol 80-4.5 mcg/actuation (Symbicort) 2 puffs inhalation Q12H [CBD PO PRN] [CBD topical PRN] dulaglutide (Trulicity) 1.5 mg subcut QWEEK empagliflozin (Jardiance) 25 mg PO DAILY fesoterodine ER 4 mg PO DAILY 30 days gabapentin 300 mg PO BID insulin glargine (Lantus Solostar U-100 Insulin) 85 units subcutaneously bedtime; insulin lispro (Humalog KwikPen (U-100) Insulin) 32 units subcut TID lancets (FreeStyle Lancets) As directed lisinopril 40 mg PO DAILY loperamide 2 mg PO DAILY PRN lorazepam 0.5 - 1 mg PO DAILY PRN melatonin 3 mg PO BEDTIME metoprolol succinate ER 100 mg PO DAILY mometasone-formoterol 200-5 mcg/actuation (Dulera) 2 puffs inhalation BID naloxone 4 mg/actuation intranasal omeprazole 40 mg PO DAILY rosuvastatin 40 mg PO BEDTIME tiotropium bromide 1.25 mcg/actuation (Spiriva Respimat) 2 puffs inhalation DAILY tramadol 50 mg PO Q8H PRN trazodone 100 mg PO BEDTIME PRN venlafaxine ER 150 mg PO QAM venlafaxine ER 37.5 mg PO DAILY warfarin 5 mg See Protocol PO DAILY warfarin 2.5 mg PO QWEEK [facility] [place] Medical History Depression Elevated cholesterol Atrial dysrhythmia Asthma PERRY (obstructive sleep apnea) History of CVA (cerebrovascular accident) (~2004) Hx pulmonary embolism Factor V Leiden mutation Scalp irritation Scalp lesion DVT (deep venous thrombosis) Hypercoagulable state Hypertension Diabetes mellitus Surgical History History of endometrial ablation Hx of lumbosacral spine surgery (11/09/22) History of inferior vena caval filter placement (~1978) Hx of right knee surgery History of surgical removal of lesion (~08/27/22) History of excision of lesion History of rotator cuff surgery History of cholecystectomy Family History Maternal Grandmother Breast cancer Sister Breast cancer Social History Household Members: Significant Other Housing: Apartment (3 steps on first floor ) Are you a primary youth career specialist to a significant other at home: No Do you presently have visiting nurse or other home services: No Alcohol intake: never Patient Tobacco Use Status: Former Tobacco user Tobacco use type: Cigarette Cigarette Packs Per Day: 0.5 Years Smoked: 1.5 Substance Use Type: Marijuana Current occupational status: disabled Current occupation: disability Current occupational exposures/hazards: No Physical Exam Vital Signs: BMI result Body Mass Index 49.4 Const Other: Well-nourished well-developed very friendly female awake alert and oriented x3 in no acute distress Extrem Other: Bilateral knee examination shows minimal effusions, palpable crepitus with range of motion, pain of motion, no instability Office Procedures AMB Joint Injection/Aspiration Joint Injection/Aspiration Primary Site: right knee Prep: site was prepped using aseptic technique Injected: 20 mg of (Euflexxa viscosupplementation) and 1% plain lidocaine Procedure: The patient tolerated the procedure well Coding 20509 - Large joint Procedure code (CPT) selection complete AMB Joint Injection/Aspiration Joint Injection/Aspiration Primary Site: left knee Prep: site was prepped using aseptic technique Injected: 20 mg of (Euflexxa viscosupplementation) and 1% plain lidocaine Procedure: The patient tolerated the procedure well Coding 39729 - Large joint Procedure code (CPT) selection complete Results Reviewed Results Reviewed: X-rays of the patient's bilateral knee show joint space narrowing, subchondral sclerosis, no acute bony abnormalities Assessment & Plan Assessment & Plan (1) Osteoarthritis of left knee: Code(s): M17.12 - Unilateral primary osteoarthritis, left knee Category: Medical (2) Osteoarthritis of right knee: Code(s): M17.11 - Unilateral primary osteoarthritis, right knee Category: Medical Plan Ms. Le presents with bilateral knee pains due to osteoarthritis. The risks and benefits of a 2nd set of Euflexxa viscosupplementation injections were discussed at length with the patient. The patient wished to proceed. She to lerated the injections well. She will continue with her home exercise program. She will follow up next week as scheduled. Feel free to call me at any time should questions regarding her orthopedic management arise. Orders: Orders AMB Joint Injection/Aspiration Today M17.12 - Unilateral primary osteoarthritis, left knee AMB Joint Injection/Aspiration Today M17.11 - Unilateral primary osteoarthritis, right knee Medications: Changed From tramadol 50 mg PO Q6H PRN 60 tabs 0RF pain To tramadol 50 mg PO Q8H PRN 60 tabs 0RF pain Coding Level of Care Code Est Pt Level 3 (73272) Complex EM visit Add On G2211 Diagnoses Osteoarthritis of left knee M17.12 Osteoarthritis of right knee M17.11 CPT Codes Coding - 22138 Large joint: 98571 - Large joint ([id number]) Coding - 01718 Large joint: 18156 - Large joint ([id number])
[2024-08-12 09:22] VITALS: BMI 49.4
== END 2024-08-12 09:53 | disposition home or self-care (01) ==
LOC: HO.HOS 08:48
PROVIDERS: PCP Internal Medicine; Visit Provider Orthopaedic Surgery
DX: M17.0 Bilateral primary osteoarthritis of knee (principal)
CPT/HCPCS: 20610; 99214

== ENCOUNTER 2024-08-13 11:24 | Outpatient (REF) | payer MEDICAID, SELFPAY ==
--- NOTE | ~2024-08-13 | MM_ITS ---
EXAMINATION: MM SCREENING DIGITAL BREAST TOMOSYNTHESIS, BILATERAL CLINICAL INFORMATION: Screening. Asymptomatic. COMPARISON: Mammography: Baseline. TECHNIQUE: Digital breast mammography with tomosynthesis is performed in both the craniocaudal and mediolateral oblique views along with computer-aided detection (CAD). FINDINGS: There are scattered areas of fibroglandular density (ACR BI-RADS breast composition Category b). There are no significant masses, abnormal calcifications, or other abnormalities. MM/MM tomosynthesis screening BI IMPRESSION: No mammographic evidence of malignancy. ASSESSMENT: BI-RADS BI-RADS 1 - Negative RECOMMENDATION: Routine annual mammography screening. 1 year F/U This examination should not preclude the clinical evaluation of a suspicious palpable abnormality. This patient's information was entered into a reminder system with a target due date for their next mammogram. Electronically signed by: Kamille Gatica DO 08/16/2024 08:08 PM EDT
== END 2024-08-13 11:25 | disposition home or self-care (01) ==
LOC: HO.MAMMO 11:24
PROVIDERS: PCP Internal Medicine; Visit Provider Internal Medicine
DX: Z12.31 Encounter for screening mammogram for malignant neoplasm of breast (principal)
CPT/HCPCS: 77063; 77067

== ENCOUNTER → 2024-08-13 11:45 | Outpatient (BNV) | payer MEDICAID, SELFPAY | PROVIDERS: PCP Internal Medicine; Visit Provider Internal Medicine | DX: Z12.31 Encounter for screening mammogram for malignant neoplasm of breast (principal) | CPT/HCPCS: 77063; 77067 ==

== ENCOUNTER 2024-08-19 10:04 | Outpatient (AMB) | payer MEDICAID, SELFPAY ==
--- NOTE | 2024-08-19 10:17 | MHC.OFFVISCO ---
Intake Intake Visit Reasons: Anticoagulation Allergies metformin Adverse Reaction (Severe, Verified 08/19/24 10:12) Diarrhea aspirin Adverse Reaction (Intermediate, Verified 08/19/24 10:12) Gastrointestinal Upset Medication List - Last Reconciled 08/19/24 by Tabatha Mack RN amitriptyline 25 - 50 mg PO BEDTIME amlodipine 5 mg PO DAILY budesonide-formoterol 80-4.5 mcg/actuation (Symbicort) 2 puffs inhalation Q12H [CBD PO PRN] [CBD topical PRN] dulaglutide (Trulicity) 1.5 mg subcut QWEEK empagliflozin (Jardiance) 25 mg PO DAILY fesoterodine ER 4 mg PO DAILY 30 days gabapentin 300 mg PO BID insulin glargine (Lantus Solostar U-100 Insulin) 85 units subcutaneously bedtime; insulin lispro (Humalog KwikPen (U-100) Insulin) 32 units subcut TID lancets (FreeStyle Lancets) As directed lisinopril 40 mg PO DAILY loperamide 2 mg PO DAILY PRN lorazepam 0.5 - 1 mg PO DAILY PRN melatonin 3 mg PO BEDTIME metoprolol succinate ER 100 mg PO DAILY mometasone-formoterol 200-5 mcg/actuation (Dulera) 2 puffs inhalation BID naloxone 4 mg/actuation intranasal omeprazole 40 mg PO DAILY rosuvastatin 40 mg PO BEDTIME tiotropium bromide 1.25 mcg/actuation (Spiriva Respimat) 2 puffs inhalation DAILY tramadol 50 mg PO Q8H PRN trazodone 100 mg PO BEDTIME PRN venlafaxine ER 150 mg PO QAM venlafaxine ER 37.5 mg PO DAILY warfarin 5 mg See Protocol PO DAILY warfarin 2.5 mg PO QWEEK Nursing Note INR 3.5-?? out of therapeutic range 2-3 Medications and supplements reviewed Patient status: pt states having botox injection to bladder on 08/25/24- no warfarin hold per composed note from md Medications or supplements: no changes pt states taking tramadol for knee pain, having gel injection to bilat knees today, will notify provider of inr today Diet: same Denies any signs and symptoms of bleeding or clotting or unusual bruising Bleeding, bruising, clotting discussed Nutritional guidance given: eat greens today and tomm no reds for 2 days Dose: reduce dose of warfarin today to 2.5mg then cont 5mg x 6, 2.5mg x 1 F/U INR Date : sat08/24/24 prior to proc? Patient verbalizing understanding of instructions given. Anti-Coag Initial Assessment Social Hx Patient Tobacco Use Status: Former Tobacco user Tobacco use type: Cigarette Smoking packs per day: 0.5 alcohol intake: never Alcohol intake frequency: does not drink Cardiovascular Hx: HTN (hx with [facility] cardiology Dr Cardona- no real dx- question of some kind condition - to have new cardiology in near future ) and Other (has feelings that she may pass out at times and has fallen 4 times and not sure why) Lung Disease HX: Asthma (age [age] years old) and DVT/PE (right calf, 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 Illness/Depression: Yes (Anxiety/depression on meds ) Coding Level of Care Code Est Patient Level 1 Diagnoses Current use of anticoagulant therapy Z79.01 Assessment & Plan Assessment & Plan (1) Current use of anticoagulant therapy: Code(s): Z79.01 - [facility] (current) use of anticoagulants Category: Medical
[2024-08-19 10:19] LABS: Prothrombin Time Whole Bld POC 41.8 sec (11.1-13.5); ~PT, ~INR - Anti Coag Clinic 3.5 (0.9-1.1)
== END 2024-08-19 10:30 | disposition home or self-care (01) ==
LOC: HO.ACS 10:04
PROVIDERS: PCP Internal Medicine; Visit Provider Internal Medicine Medical Oncology
DX: Z79.01 Long term (current) use of anticoagulants (principal)

== ENCOUNTER → 2024-08-19 10:04 | Outpatient (BNVA) | payer MEDICAID, SELFPAY | PROVIDERS: PCP Internal Medicine; Visit Provider Internal Medicine Medical Oncology | DX: M17.0 Bilateral primary osteoarthritis of knee (principal); D68.59 Other primary thrombophilia; Z79.01 Long term (current) use of anticoagulants; Z51.81 Encounter for therapeutic drug level monitoring | CPT/HCPCS: 20610; 85610; 99211; J2003; J7323 ==

== ENCOUNTER 2024-08-19 10:35 | Outpatient (AMB) | payer MEDICAID, SELFPAY ==
[2024-08-19 10:40] VITALS: BMI 49.4
--- NOTE | 2024-08-19 10:40 | A.OFFVIS_ITS ---
Vital Signs 08/19/24 10:40 Height 5 ft 2 in Weight 270 lb BMI 49.4 Intake Visit Reasons: Inj-Bilateral Knee Euflexxa #3 Intake Note: Charo presents for follow-up of her bilateral knee pains. She states that she has gotten fairly good relief from the 1st 2 sets of Euflexxa injections. She continues with her home exercise program. Allergies metformin Adverse Reaction (Severe, Verified 08/19/24 10:40) Diarrhea aspirin Adverse Reaction (Intermediate, Verified 08/19/24 10:40) Gastrointestinal Upset Medication List - Last Reconciled 08/19/24 by George Jones MD amitriptyline 25 - 50 mg PO BEDTIME amlodipine 5 mg PO DAILY budesonide-formoterol 80-4.5 mcg/actuation (Symbicort) 2 puffs inhalation Q12H [CBD PO PRN] [CBD topical PRN] dulaglutide (Trulicity) 1.5 mg subcut QWEEK empagliflozin (Jardiance) 25 mg PO DAILY fesoterodine ER 4 mg PO DAILY 30 days gabapentin 300 mg PO BID insulin glargine (Lantus Solostar U-100 Insulin) 85 units subcutaneously bedtime; insulin lispro (Humalog KwikPen (U-100) Insulin) 32 units subcut TID lancets (FreeStyle Lancets) As directed lisinopril 40 mg PO DAILY loperamide 2 mg PO DAILY PRN lorazepam 0.5 - 1 mg PO DAILY PRN melatonin 3 mg PO BEDTIME metoprolol succinate ER 100 mg PO DAILY mometasone-formoterol 200-5 mcg/actuation (Dulera) 2 puffs inhalation BID naloxone 4 mg/actuation intranasal omeprazole 40 mg PO DAILY rosuvastatin 40 mg PO BEDTIME tiotropium bromide 1.25 mcg/actuation (Spiriva Respimat) 2 puffs inhalation DAILY tramadol 50 mg PO Q8H PRN trazodone 100 mg PO BEDTIME PRN venlafaxine ER 150 mg PO QAM venlafaxine ER 37.5 mg PO DAILY warfarin 5 mg See Protocol PO DAILY warfarin 2.5 mg See Protocol PO QWEEK PFSH Medical History Depression Elevated cholesterol Atrial dysrhythmia Asthma PERRY (obstructive sleep apnea) History of CVA (cerebrovascular accident) (~2004) Hx pulmonary embolism Factor V Leiden mutation Scalp irritation Scalp lesion DVT (deep venous thrombosis) Hypercoagulable state Hypertension Diabetes mellitus Surgical History History of endometrial ablation Hx of lumbosacral spine surgery (11/09/22) History of inferior vena caval filter placement (~1978) Hx of right knee surgery History of surgical removal of lesion (~08/27/22) History of excision of lesion History of rotator cuff surgery History of cholecystectomy Family History Maternal Grandmother Breast cancer Sister Breast cancer Social History Household Members: Significant Other Housing: Apartment (3 steps on first floor ) Are you a primary care management assistant to a significant other at home: No Do you presently have visiting nurse or other home services: No Alcohol intake: never Patient Tobacco Use Status: Former Tobacco user Tobacco use type: Cigarette Cigarette Packs Per Day: 0.5 Years Smoked: 1.5 Substance Use Type: Marijuana Current occupational status: disabled Current occupation: disability Current occupational exposures/hazards: No Physical Exam Vital Signs: BMI result Body Mass Index 49.4 Const Other: Well-nourished well-developed very friendly female awake alert and oriented x3 in no acute distress Extrem Other: Bilateral knee examination shows minimal effusions, palpable crepitus with range of motion, pain with range of motion, no instability Office Procedures AMB Joint Injection/Aspiration Joint Injection/Aspiration Primary Site: left knee Prep: site was prepped using aseptic technique Injected: 20 mg of (Euflexxa viscosupplementation) and 1% plain lidocaine Procedure: The patient tolerated the procedure well Coding 96519 - Large joint Procedure code (CPT) selection complete AMB Joint Injection/Aspiration Joint Injection/Aspiration Primary Site: right knee Prep: site was prepped using aseptic technique Injected: 20 mg of (Euflexxa viscosupplementation) and 1% plain lidocaine Procedure: The patient tolerated the procedure well Coding 21145 - Large joint Procedure code (CPT) selection complete Assessment & Plan Assessment & Plan (1) Osteoarthritis of left knee: Code(s): M17.12 - Unilateral primary osteoarthritis, left knee Category: Medical (2) Osteoarthritis of right knee: Code(s): M17.11 - Unilateral primary osteoarthritis, right knee Category: Medical Plan Charo presents with bilateral knee pains due to osteoarthritis. The risks and benefits of a 3rd set of Euflexxa viscosupplementation injections were discussed at length with the patient. The patient wished to proceed. She tolerated the injections well. She will continue with her home exercise program. She will contact me prior to her follow-up appointment in 3 months should any questions or concerns arise. Feel free to call me at any time should questions regarding her orthopedic management arise. I spent 21 minutes in reviewing the patient's records and imaging studies, seeing the patient and documenting in the medical record. Orders: Orders AMB Joint Injection/Aspiration Today M17.12 - Unilateral primary osteoarthritis, left knee AMB Joint Injection/Aspiration Today M17.11 - Unilateral primary osteoarthritis, right knee Coding Level of Care Code Procedure Only Diagnoses Osteoarthritis of left knee M17.12 Osteoarthritis of right knee M17.11 CPT Codes Coding - 66535 Large joint: 26762 - Large joint ([id number]) Coding - 16959 Large joint: 34969 - Large joint ([id number])
== END 2024-08-19 11:32 | disposition home or self-care (01) ==
LOC: HO.HOS 10:35
PROVIDERS: PCP Internal Medicine; Visit Provider Orthopaedic Surgery
DX: M17.0 Bilateral primary osteoarthritis of knee (principal)
CPT/HCPCS: 20610

== ENCOUNTER 2024-08-24 09:44 | Outpatient (AMB) | payer MEDICAID, SELFPAY ==
--- NOTE | 2024-08-24 10:00 | MHC.OFFVISCO ---
Intake Intake Visit Reasons: Anticoagulation Allergies metformin Adverse Reaction (Severe, Verified 08/24/24 09:55) Diarrhea aspirin Adverse Reaction (Intermediate, Verified 08/24/24 09:55) Gastrointestinal Upset Medication List - Last Reconciled 08/24/24 by Tabatha Mack RN amitriptyline 25 - 50 mg PO BEDTIME amlodipine 5 mg PO DAILY budesonide-formoterol 80-4.5 mcg/actuation (Symbicort) 2 puffs inhalation Q12H [CBD PO PRN] [CBD topical PRN] dulaglutide (Trulicity) 1.5 mg subcut QWEEK empagliflozin (Jardiance) 25 mg PO DAILY fesoterodine ER 4 mg PO DAILY 30 days gabapentin 300 mg PO BID insulin glargine (Lantus Solostar U-100 Insulin) 85 units subcutaneously bedtime; insulin lispro (Humalog KwikPen (U-100) Insulin) 32 units subcut TID lancets (FreeStyle Lancets) As directed lisinopril 40 mg PO DAILY loperamide 2 mg PO DAILY PRN lorazepam 0.5 - 1 mg PO DAILY PRN melatonin 3 mg PO BEDTIME metoprolol succinate ER 100 mg PO DAILY mometasone-formoterol 200-5 mcg/actuation (Dulera) 2 puffs inhalation BID naloxone 4 mg/actuation intranasal omeprazole 40 mg PO DAILY rosuvastatin 40 mg PO BEDTIME tiotropium bromide 1.25 mcg/actuation (Spiriva Respimat) 2 puffs inhalation DAILY tramadol 50 mg PO Q8H PRN trazodone 100 mg PO BEDTIME PRN venlafaxine ER 150 mg PO QAM venlafaxine ER 37.5 mg PO DAILY warfarin 5 mg See Protocol PO DAILY warfarin 2.5 mg See Protocol PO QWEEK Nursing Note INR: 3.0- in therapeutic range of 2-3 Medications and supplements reviewed- taking tramadol for knee pain No changes in health, diet, medications, or supplements, Denies any signs and symptoms of bleeding or bruising or clotting. Bleeding, bruising, clotting discussed Nutritional guidance given - eat a dark cooked green today Dose: F/U INR: 1 week Patient verbalizes understanding of instructions given pt to have botox injection tomm- no hold on warfarin per md, prev inr 3.5 on 08/19/24 with warfarin dose adjustment, and pt held warfarin on 08/20/24 as she thought there was a hold on her warfarin- she did call acs for verification and no hold per md composed note to dr sampson with todays inr Anti-Coag Initial Assessment Social Hx Patient Tobacco Use Status: Former Tobacco user Tobacco use type: Cigarette Smoking packs per day: 0.5 alcohol intake: never Alcohol intake frequency: does not drink Cardiovascular Hx: HTN (hx with [facility] cardiology Dr Cardona- no real dx- question of some kind condition - to have new cardiology in near future ) and Other (has feelings that she may pass out at times and has fallen 4 times and not sure why) Lung Disease HX: Asthma (age [age] years old) and DVT/PE (right calf, 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 Illness/Depression: Yes (Anxiety/depression on meds ) Coding Level of Care Code Est Patient Level 1 Diagnoses Current use of anticoagulant therapy Z79.01 Assessment & Plan Assessment & Plan (1) Current use of anticoagulant therapy: Code(s): Z79.01 - [facility] (current) use of anticoagulants Category: Medical
[2024-08-24 10:02] LABS: Prothrombin Time Whole Bld POC 36.4 sec (11.1-13.5)
== END 2024-08-24 10:43 | disposition home or self-care (01) ==
LOC: HO.ACS 09:44
PROVIDERS: PCP Internal Medicine; Visit Provider Internal Medicine Medical Oncology
DX: Z79.01 Long term (current) use of anticoagulants (principal)

== ENCOUNTER → 2024-08-24 09:44 | Outpatient (BNVA) | payer MEDICAID, SELFPAY | PROVIDERS: PCP Internal Medicine; Visit Provider Internal Medicine Medical Oncology | DX: D68.59 Other primary thrombophilia (principal); Z79.01 Long term (current) use of anticoagulants; Z51.81 Encounter for therapeutic drug level monitoring | CPT/HCPCS: 85610; 99211 ==

== ENCOUNTER 2024-08-25 05:39 | Day surgery (SDC) | payer MEDICAID, SELFPAY ==
[2024-08-21 10:56] VITALS: BMI 49.4
--- NOTE | 2024-08-24 12:03 | HO.ANESPROP2 ---
Documented by User: Jessica Shine NP 08/24/24 12:04 HPI - Anesthesia Eval Consult details Narrative: 63yo F for Cystoscopy Bladder Botox Injection Warfarin for hx DVT (Factor V). BMI 49.4 Anesthesia Pre-Procedure Meds Is the patient on any of the following meds?: GLP1/DPP4 and SGLT2 Inhib PMFSH Active Problems Active Problems: All Active Problems OAB (overactive bladder) (Acute) Osteoarthritis of right knee (Acute) Osteoarthritis of left knee (Acute) Current use of anticoagulant therapy (Acute) Bilateral knee pain (Acute) Arthritis of right knee (Acute) Chronic cough (Acute) Right knee pain (Acute) Daytime somnolence (Acute) PERRY on CPAP (Acute) Dyspnea (Acute) Asthma (Acute) Arthritis of left knee (Acute) Renal cyst (Acute) Lower urinary tract symptoms (Acute) Mixed incontinence urge and stress (Acute) Scalp irritation (Acute) Scalp lesion (Acute) DVT (deep venous thrombosis) (Acute) Hypercoagulable state (Acute) Hypertension (Acute) Diabetes mellitus (Acute) Past Medical History Medical History Depression Elevated cholesterol Atrial dysrhythmia Asthma PERRY (obstructive sleep apnea) History of CVA (cerebrovascular accident) (~2004) Hx pulmonary embolism Factor V Leiden mutation Scalp irritation Scalp lesion DVT (deep venous thrombosis) Hypercoagulable state Hypertension Diabetes mellitus Family History Family History Maternal Grandmother Breast cancer Sister Breast cancer Family history of problems with anesthesia: No Surgical History Surgical History History of endometrial ablation Hx of lumbosacral spine surgery (11/09/22) History of inferior vena caval filter placement (~1978) Hx of right knee surgery History of surgical removal of lesion (~08/27/22) History of excision of lesion History of rotator cuff surgery History of cholecystectomy History of Problems with Anesthesia: No Social History Social History Household Members: Significant Other Housing: Apartment (3 steps on first floor ) Are you a primary home health care physician to a significant other at home: No Do you presently have visiting nurse or other home services: No Alcohol intake: never Patient Tobacco Use Status: Former Tobacco user Tobacco use type: Cigarette Cigarette Packs Per Day: 0.5 Years Smoked: 1.5 Smoked in Last 30 Days: No Use of substances other than those prescribed or required for medical reasons: Yes Substance Use Type: Marijuana Substance Use Type Other:: edibles- last use was Sat 08/22 Substance Use Frequency: Occasionally Have you been hit, kicked, punched, or otherwise hurt by someone within the past year? If so, by whom?: No Are you DNR?: No Advance Directives: No Advance Directives Information Provided: Yes Current occupational status: disabled Current occupation: disability Current occupational exposures/hazards: No Meds Allergies Allergy/AdvReac Type Severity Reaction Status Date / Time metformin AdvReac Severe Diarrhea Verified 08/25/24 06:12 aspirin AdvReac Intermediate Gastrointestinal Verified 08/25/24 06:12 Upset Home Medications ?Medication ?Instructions ?Recorded ?Confirmed ?Last Taken ?Type lancets 28 gauge (FreeStyle #100 ea 09/15/20 08/19/24 Unknown History Lancets) amitriptyline 25 mg tablet 25 - 50 mg PO BEDTIME 08/16/22 08/19/24 11/20/23 History amlodipine 5 mg tablet 5 mg PO DAILY 08/16/22 08/19/24 08/25/24 04:30 History lisinopril 40 mg tablet 40 mg PO DAILY 08/16/22 08/19/24 11/20/23 History loperamide 2 mg capsule 2 mg PO DAILY PRN Diarrhea 08/16/22 08/19/24 Unknown History rosuvastatin 40 mg tablet 40 mg PO BEDTIME 08/16/22 08/19/24 11/20/23 History trazodone 100 mg tablet 100 mg PO BEDTIME PRN Insomnia 08/16/22 08/19/24 Unknown History venlafaxine 150 mg 150 mg PO QAM 08/16/22 08/19/24 11/21/23 History capsule,extended release 24 hr venlafaxine 37.5 mg 37.5 mg PO DAILY 08/16/22 08/19/24 11/21/23 History capsule,extended release 24 hr empagliflozin 25 mg tablet 25 mg PO DAILY 12/28/22 08/19/24 08/22/24 History (Jardiance) gabapentin 300 mg capsule 300 mg PO BID 04/30/23 08/19/24 11/22/23 History melatonin 3 mg tablet 3 mg PO BEDTIME 04/30/23 08/19/24 Unknown History omeprazole 40 mg capsule,delayed 40 mg PO DAILY 04/30/23 08/19/24 08/25/24 04:30 History release warfarin 5 mg tablet 5 mg PO DAILY 04/30/23 08/24/24 08/23/24 History dulaglutide 1.5 mg/0.5 mL 1.5 mg subcut QWEEK 09/27/23 08/19/24 08/15/24 History subcutaneous pen injector (Trulicity) lorazepam 0.5 mg tablet 0.5 - 1 mg PO DAILY PRN anxiety 11/21/23 08/19/24 Unknown History CBD topical PRN pain 07/06/24 08/19/24 Unknown History insulin glargine 100 unit/mL (3 See Rx Instructions subcut BEDTIME 07/06/24 08/19/24 Unknown History mL) subcutaneous pen (Lantus Solostar U-100 Insulin) insulin lispro 100 unit/mL 32 unit subcut TID 07/06/24 08/19/24 Unknown History subcutaneous pen (Humalog KwikPen (U-100) Insulin) naloxone 4 mg/actuation nasal spray intranasal 07/06/24 08/19/24 Unknown History metoprolol succinate 100 mg 100 mg PO DAILY 07/23/24 08/19/24 08/25/24 04:30 History tablet,extended release 24 hr warfarin 2.5 mg tablet 2.5 mg PO QWEEK 08/12/24 08/24/24 08/23/24 History Exam Height,Weight and Vital Signs: Height 5 ft 2 in Weight 122.47 kg Narrative Narrative: EKG 2023 Vent. Rate : 091 BPM Atrial Rate : 091 BPM P-R Int : 220 ms QRS Dur : 068 ms QT Int : 568 ms P-R-T Axes : 034 033 035 degrees QTc Int : 698 ms Sinus rhythm with 1st degree A-V block Nonspecific T wave abnormality Prolonged QT Abnormal ECG No previous ECGs available Assessment and Plan Assessment Anesthesia Assessment: Chart Reviewed Final Anesthetic Review Family History of Problems with Anesthesia: No History of Problems with Anesthesia: No Documented by User: Jovany Taylor MD 08/25/24 07:33 [facility] Past Medical History Medical History Depression Elevated cholesterol Atrial dysrhythmia Asthma PERRY (obstructive sleep apnea) History of CVA (cerebrovascular accident) (~2004) Hx pulmonary embolism Factor V Leiden mutation Scalp irritation Scalp lesion DVT (deep venous thrombosis) Hypercoagulable state Hypertension Diabetes mellitus Family History Family History Maternal Grandmother Breast cancer Sister Breast cancer Surgical History Surgical History History of endometrial ablation Hx of lumbosacral spine surgery (11/09/22) History of inferior vena caval filter placement (~1978) Hx of right knee surgery History of surgical removal of lesion (~08/27/22) History of excision of lesion History of rotator cuff surgery History of cholecystectomy Social History Social History Household Members: Significant Other Housing: Apartment (3 steps on first floor ) Are you a primary home health care physician to a significant other at home: No Do you presently have visiting nurse or other home services: No Alcohol intake: never Patient Tobacco Use Status: Former Tobacco user Tobacco use type: Cigarette Cigarette Packs Per Day: 0.5 Years Smoked: 1.5 Smoked in Last 30 Days: No Use of substances other than those prescribed or required for medical reasons: Yes Substance Use Type: Marijuana Substance Use Type Other:: edibles- last use was 08/22 Substance Use Frequency: Occasionally Have you been hit, kicked, punched, or otherwise hurt by someone within the past year? If so, by whom?: No Are you DNR?: No Advance Directives: No Advance Directives Information Provided: Yes Current occupational status: disabled Current occupation: disability Current occupational exposures/hazards: No Meds Allergies Allergy/AdvReac Type Severity Reaction Status Date / Time metformin AdvReac Severe Diarrhea Verified 08/25/24 06:12 aspirin AdvReac Intermediate Gastrointestinal Verified 08/25/24 06:12 Upset Home Medications ?Medication ?Instructions ?Recorded ?Confirmed ?Last Taken ?Type lancets 28 gauge (FreeStyle #100 ea 09/15/20 08/19/24 Unknown History Lancets) amitriptyline 25 mg tablet 25 - 50 mg PO BEDTIME 08/16/22 08/19/24 11/20/23 History amlodipine 5 mg tablet 5 mg PO DAILY 08/16/22 08/19/24 08/25/24 04:30 History lisinopril 40 mg tablet 40 mg PO DAILY 08/16/22 08/19/24 11/20/23 History loperamide 2 mg capsule 2 mg PO DAILY PRN Diarrhea 08/16/22 08/19/24 Unknown History rosuvastatin 40 mg tablet 40 mg PO BEDTIME 08/16/22 08/19/24 11/20/23 History trazodone 100 mg tablet 100 mg PO BEDTIME PRN Insomnia 08/16/22 08/19/24 Unknown History venlafaxine 150 mg 150 mg PO QAM 08/16/22 08/19/24 11/21/23 History capsule,extended release 24 hr venlafaxine 37.5 mg 37.5 mg PO DAILY 08/16/22 08/19/24 11/21/23 History capsule,extended release 24 hr empagliflozin 25 mg tablet 25 mg PO DAILY 12/28/22 08/19/24 08/22/24 History (Jardiance) gabapentin 300 mg capsule 300 mg PO BID 04/30/23 08/19/24 11/22/23 History melatonin 3 mg tablet 3 mg PO BEDTIME 04/30/23 08/19/24 Unknown History omeprazole 40 mg capsule,delayed 40 mg PO DAILY 04/30/23 08/19/24 08/25/24 04:30 History release warfarin 5 mg tablet 5 mg PO DAILY 04/30/23 08/24/24 08/23/24 History dulaglutide 1.5 mg/0.5 mL 1.5 mg subcut QWEEK 09/27/23 08/19/24 08/15/24 History subcutaneous pen injector (Trulicity) lorazepam 0.5 mg tablet 0.5 - 1 mg PO DAILY PRN anxiety 11/21/23 08/19/24 Unknown History CBD topical PRN pain 07/06/24 08/19/24 Unknown History insulin glargine 100 unit/mL (3 See Rx Instructions subcut BEDTIME 07/06/24 08/19/24 Unknown History mL) subcutaneous pen (Lantus Solostar U-100 Insulin) insulin lispro 100 unit/mL 32 unit subcut TID 07/06/24 08/19/24 Unknown History subcutaneous pen (Humalog KwikPen (U-100) Insulin) naloxone 4 mg/actuation nasal spray intranasal 07/06/24 08/19/24 Unknown History metoprolol succinate 100 mg 100 mg PO DAILY 07/23/24 08/19/24 08/25/24 04:30 History tablet,extended release 24 hr warfarin 2.5 mg tablet 2.5 mg PO QWEEK 08/12/24 08/24/24 08/23/24 History Exam Airway Mallampati Class: I TM Dist: <=3cm Neck ROM: Full Denture: Upper Heart: ok Lungs: ok Assessment and Plan Assessment Anesthesia Assessment: Anesthesia Plan Discussed Final Anesthetic Review NPO: Yes ASA Class: III Final Preanesthetic Review: No Changes in Pt Med Stat, Meds/Allgs Chart Reviewed, Consent Obtained/Reviewed and Anes Risks/Benef Reviewed Patient Risk: Intermediate Procedure Risk: Low Anesthetic Plan Anesthetic Plan: GA and Agree w/ Assess. and Plan Disposition: Standard PACU
[2024-08-25 06:02] VITALS: BMI 43.1
[2024-08-25 06:03] VITALS: BMI 43.1
[2024-08-25 06:09] VITALS: BP 137/41; PULSE 75; RESP 17; TEMP 36.7; O2SAT 97
[2024-08-25] MEDS: Lactated Ringers 1,000 ML 100 ML IVCONT (06:34)
[2024-08-25 06:37] LABS: Glucose, Whole Blood 288 mg/dL (60-115)
[2024-08-25 06:56] LABS: INTERNATIONAL NORM RATIO 2.5 (0.9-1.1)
--- NOTE | 2024-08-25 07:34 | W.PM.OPN ---
Operative Note Operative Note Date of Service: 08/25/24 Narrative: PREOP DIAGNOSIS: Overactive bladder-OAB POSTOP DIAGNOSIS: OAB PROCEDURE: CYSTOSCOPY, BLADDER BOTOX INJECTION 100 UNITS SURGEON: Annamarie Lerma MD ANESTHESIA: General Details of procedure: The patient was brought into the operating room placed on the OR table in supine position. Antibiotics confirmed. General anesthesia was administered. The patient was repositioned into lithotomy position, prepped and draped in the usual sterile fashion. Time-out was done per protocol. A 22 fr cystoscope was placed transurethrally into the bladder. Urine was sent for culture. The right and left ureteral orifices were visualized. There were mild see there were trabeculations trabeculations noted. There were no suspicious bladder lesions seen. The Botox 100 units was mixed with 10 cc of normal saline and transurethral injections were placed into the posterior wall of the bladder. 0.5cc placed at each injection site. Injections were placed in a grid 5 across and 4 longitudinally. Injections were placed from the inferior to superior position. 2% lidocaine urojet was passed transurethrally into the bladder. The patient was brought out of anesthesia and taken to recovery in stable condition. Complications: None EBL: minimal (<5 mL) Drains: none
--- NOTE | 2024-08-25 07:34 | MHC.SHP ---
Pre-Procedural Eval Section A - 24 Hr Update-Section A only Date of Service: 08/25/24 The patient is an INPATIENT: No The patient has been examined within 24 hours of the surgical procedure. The History & Physical has been completed within 30 days and I have reviewed it.: Yes Section B - Complete if H&P > 30 days Chief Complaint: Overactive bladder Allergies: Allergies Allergy/AdvReac Type Severity Reaction Status Date / Time metformin AdvReac Severe Diarrhea Verified 08/25/24 06:12 aspirin AdvReac Intermediate Gastrointestinal Verified 08/25/24 06:12 Upset Plan Diagnosis/Plan: Unchanged I have reviewed the history and physical and performed a pertinent physical examination on my patient. No changes have occurred unless specified. Cystoscopy. Botox hladder injection 100 units. Discussed risks to include but not limited to, blood in the urine, burning with urination, urgency. I have discussed risks to include hematuria, UTI, urinary retention, need to repeat procedure for sustained efficacy. Time Spent With Patient Time: Total time managing care of this patient today ____ minutes.
[2024-08-25] MEDS: Insulin Lispro 100 UNIT/ML 3 ML VIAL 10 UNIT SUBCUT (07:35)
--- NOTE | 2024-08-25 07:45 | PC.NURSE ---
Dr. Thang Hill and Dr. Taylor aware of patient's INR level. Ok to proceed.
[2024-08-25 08:22] VITALS: BP 119/54; PULSE 69; RESP 16; TEMP 36.9; O2SAT 99
[2024-08-25 08:27] VITALS: BP 124/60; PULSE 67; RESP 18; O2SAT 98
[2024-08-25 08:32] VITALS: BP 127/56; PULSE 67; RESP 18; O2SAT 100
[2024-08-25 08:37] VITALS: BP 133/49; PULSE 62; RESP 17; O2SAT 99
[2024-08-25] MEDS: Acetaminophen 325 MG TABLET 975 MG PO (08:41)
[2024-08-25] MEDS: Phenazopyridine HCL 200 MG TABLET PO (08:41)
[2024-08-25 08:52] VITALS: BP 114/48; PULSE 62; RESP 17; TEMP 36.1; O2SAT 99
== END 2024-08-25 09:30 | disposition home or self-care (01) ==
PROVIDERS: Nurse Practitioner; PCP Internal Medicine; Visit Provider Urology
PROC: 3E0K8GC Introduction of Other Therapeutic Substance into Genitourinary Tract, Via Natural or Artificial Opening Endoscopic (ICD-10-PCS; CPT 52287; principal; 2024-08-25 07:30)
DX: N32.81 Overactive bladder (principal); N39.46 Mixed incontinence; E78.00 Pure hypercholesterolemia, unspecified; I49.8 Other specified cardiac arrhythmias; I10 Essential (primary) hypertension; E11.9 Type 2 diabetes mellitus without complications; J45.909 Unspecified asthma, uncomplicated; D68.51 Activated protein C resistance; D68.59 Other primary thrombophilia; G47.33 Obstructive sleep apnea (adult) (pediatric); Z86.711 Personal history of pulmonary embolism; Z86.73 Personal history of transient ischemic attack (TIA), and cerebral infarction without residual deficits; Z79.01 Long term (current) use of anticoagulants; Z79.4 Long term (current) use of insulin; Z79.84 Long term (current) use of oral hypoglycemic drugs; Z79.85 Long-term (current) use of injectable non-insulin antidiabetic drugs; Z79.899 Other long term (current) drug therapy; Z88.8 Allergy status to other drugs, medicaments and biological substances; Z88.6 Allergy status to analgesic agent; Z87.891 Personal history of nicotine dependence
CPT/HCPCS: 52287; 36415; 82947; 85610; 87086; J0585; J0690; J2003; J2704; J3010

== ENCOUNTER → 2024-08-25 05:39 | Outpatient (BNV) | payer MEDICAID, SELFPAY | PROVIDERS: PCP Internal Medicine; Visit Provider Urology | DX: N32.81 Overactive bladder (principal) | CPT/HCPCS: 52287 ==

== ENCOUNTER 2024-09-03 13:04 | Outpatient (AMB) | payer MEDICAID, SELFPAY ==
[2024-09-03 13:17] LABS: Prothrombin Time Whole Bld POC 39.4 sec (11.1-13.5); ~PT, ~INR - Anti Coag Clinic 3.3 (0.9-1.1)
--- NOTE | 2024-09-03 13:27 | MHC.OFFVISCO ---
Intake Intake Visit Reasons: Anticoagulation Allergies metformin Adverse Reaction (Severe, Verified 09/03/24 13:11) Diarrhea aspirin Adverse Reaction (Intermediate, Verified 09/03/24 13:11) Gastrointestinal Upset Medication List - Last Reconciled 09/03/24 by Violette Henson, RN amitriptyline 25 - 50 mg PO BEDTIME amlodipine 5 mg PO DAILY budesonide-formoterol 80-4.5 mcg/actuation (Symbicort) 2 puffs inhalation Q12H [CBD topical PRN] dulaglutide (Trulicity) 1.5 mg subcut QWEEK empagliflozin (Jardiance) 25 mg PO DAILY fesoterodine ER 4 mg PO DAILY 30 days gabapentin 300 mg PO BID insulin glargine (Lantus Solostar U-100 Insulin) 85 units subcutaneously bedtime; insulin lispro (Humalog KwikPen (U-100) Insulin) 32 units subcut TID lancets (FreeStyle Lancets) As directed lisinopril 40 mg PO DAILY loperamide 2 mg PO DAILY PRN lorazepam 0.5 - 1 mg PO DAILY PRN melatonin 3 mg PO BEDTIME metoprolol succinate ER 100 mg PO DAILY mometasone-formoterol 200-5 mcg/actuation (Dulera) 2 puffs inhalation BID naloxone 4 mg/actuation intranasal omeprazole 40 mg PO DAILY phenazopyridine (Pyridium) 100 mg PO BID rosuvastatin 40 mg PO BEDTIME tiotropium bromide 1.25 mcg/actuation (Spiriva Respimat) 2 puffs inhalation DAILY tramadol 50 mg PO Q8H PRN trazodone 100 mg PO BEDTIME PRN venlafaxine ER 150 mg PO QAM venlafaxine ER 37.5 mg PO DAILY warfarin 5 mg See Protocol PO DAILY warfarin 2.5 mg See Protocol PO QWEEK Nursing Note INR: 3.3?out of therapeutic range of 2-3 Pt had a 2 day hold of warfarin for a procedure, botox inj of bladder on 08/24/24 Medications and supplements reviewed Patient status: feels well Medications or supplements: no changes Diet: usual diet for pt Denies any signs and symptoms of bleeding or clotting or unusual bruising Bleeding, bruising, clotting discussed Nutritional guidance given: to have a serving of greens today Dose: 5mg X 6 days and 2.5mg X 1 day F/U INR Date: 2 weeks?? Patient verbalizing understanding of instructions given. Anti-Coag Initial Assessment Social Hx Patient Tobacco Use Status: Former Tobacco user Tobacco use type: Cigarette Smoking packs per day: 0.5 alcohol intake: never Alcohol intake frequency: does not drink Cardiovascular Hx: HTN (hx with [facility] cardiology Dr Cardona- no real dx- question of some kind condition - to have new cardiology in near future ) and Other (has feelings that she may pass out at times and has fallen 4 times and not sure why) Lung Disease HX: Asthma (age [age] years old) and DVT/PE (right calf, 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
== END 2024-09-03 13:31 | disposition home or self-care (01) ==
LOC: HO.ACS 13:04
PROVIDERS: PCP Internal Medicine; Visit Provider Internal Medicine Medical Oncology
DX: Z79.01 Long term (current) use of anticoagulants (principal)

== ENCOUNTER → 2024-09-03 13:04 | Outpatient (BNVA) | payer MEDICAID, SELFPAY | PROVIDERS: PCP Internal Medicine; Visit Provider Internal Medicine Medical Oncology | DX: Z79.01 Long term (current) use of anticoagulants (principal) | CPT/HCPCS: 85610; 99211 ==

== ENCOUNTER → 2024-09-07 13:00 | Outpatient (BNVA) | payer MEDICAID, SELFPAY | PROVIDERS: PCP Internal Medicine; Visit Provider Urology | DX: N39.46 Mixed incontinence (principal) | CPT/HCPCS: 51798 ==

== ENCOUNTER → 2024-09-17 13:52 | Outpatient (BNVA) | payer MEDICAID, SELFPAY | PROVIDERS: PCP Internal Medicine; Visit Provider Internal Medicine Medical Oncology | DX: D68.59 Other primary thrombophilia (principal); Z79.01 Long term (current) use of anticoagulants; Z51.81 Encounter for therapeutic drug level monitoring | CPT/HCPCS: 85610; 99211 ==

== ENCOUNTER 2024-09-22 10:08 | Outpatient (AMB) | payer MEDICAID, SELFPAY ==
--- NOTE | 2024-09-22 10:18 | A.OFFVIS_ITS ---
Vital Signs 09/22/24 10:31 Height 5 ft 2 in Weight 228 lb 8 oz BMI 41.8 BP 118/60 Blood Pressure Location Rt radial Position Sitting Pulse 83 Pulse Source Pulse Oximeter Pulse Oximetry (%) 97 Oxygen Delivery Method Room Air Intake Visit Reasons: Obstructive sleep apnea Allergies metformin Adverse Reaction (Severe, Verified 09/22/24 10:33) Diarrhea aspirin Adverse Reaction (Intermediate, Verified 09/22/24 10:33) Gastrointestinal Upset HPI HPI Obstructive sleep apnea: Details: Charo is a pleasant 63 year old female, minimal former smoker, with underlying asthma. She was last seen in this office September 2023. She has been using Dulera and with suboptimal effect, continuing with dyspnea upon exertion. She denies cough, wheezing or chest tightness. Previously Spiriva was ordered but she felt it to be ?too strong? and discontinued use. Today she presents to discuss further management of asthma. She denies any visits to urgent care hospitalizations related to respiratory distress since last visit. [facility] Medical History Depression Elevated cholesterol Atrial dysrhythmia Asthma PERRY (obstructive sleep apnea) History of CVA (cerebrovascular accident) (~2004) Hx pulmonary embolism Factor V Leiden mutation Scalp irritation Scalp lesion DVT (deep venous thrombosis) Hypercoagulable state Hypertension Diabetes mellitus Surgical History History of endometrial ablation Hx of lumbosacral spine surgery (11/09/22) History of inferior vena caval filter placement (~1978) Hx of right knee surgery History of surgical removal of lesion (~08/27/22) History of excision of lesion History of rotator cuff surgery History of cholecystectomy Family History Maternal Grandmother Breast cancer Sister Breast cancer Social History Household Members: Significant Other Housing: Apartment (3 steps on first floor ) Are you a primary manager critical care unit to a significant other at home: No Do you presently have visiting nurse or other home services: No Alcohol intake: never Patient Tobacco Use Status: Former Tobacco user Tobacco use type: Cigarette Cigarette Packs Per Day: 0.5 Years Smoked: 1.5 Substance Use Type: Marijuana Current occupational status: disabled Current occupation: disability Current occupational exposures/hazards: No Review of Systems Const Denies chills, Denies excessive sweating, Denies fever(s), Denies headache(s) and Denies night sweats Eyes Denies dry eyes, Denies irritation and Denies itchy eyes ENT Reports Normal hearing present, Denies headache(s), Denies nasal congestion, Denies nasal discharge, Denies post nasal drip and Denies sore throat Card Denies chest pain, Denies chest pain at rest, Denies chest pain with activity, Denies claudication, Denies leg edema, Denies orthopnea and Denies paroxysmal nocturnal dyspnea Resp Denies chest congestion, Denies cough, Denies excessive phlegm production, Denies pain on inspiration, Denies pain with cough, Denies stridor and Denies wheezing Musc Denies myalgias Neuro Reports Normal hearing present and Denies headache(s) Endo Denies excessive sweating Jose Raul/Lymph Denies lymphadenopathy Aller/Immun Denies itchy eyes, Denies seasonal rhinorrhea and Denies wheezing Physical Exam Vital Signs: Last Vital Signs Pulse 83 09/22/24 10:31 BP 118/60 09/22/24 10:31 Pulse Ox 97 09/22/24 10:31 Oxygen Delivery Method Room Air 09/22/24 10:31 BMI result Body Mass Index 41.8 Const General: cooperative, healthy appearing, comfortable, no acute distress, well developed and alert Nutritional Appearance: obese Orientation/consciousness: patient oriented x3 Limitations: no limitations HEENT Head: Yes normal to inspection, Yes normocephalic and Yes atraumatic Ears: hearing grossly normal bilaterally and external ears normal Eyes General: appearance normal, both eyes and all related structures Eyelids: Yes eyelids normal Sclerae: sclerae normal EOM: EOMs intact bilaterally Neck Neck: Yes normal visual inspection and Yes no lymphadenopathy Lymphatic: no lymphadenopathy noted Chest Chest palpation & inspection: normal inspection of the chest Resp Effort & Inspection: normal respiratory effort, able to speak in complete sentences, no audible wheezes, no cough, no stridor, not tachypneic, no tripod positioning and no use of accessory muscles Auscultation: clear to auscultation bilaterally Cardio Jugular venous distension: no JVD Rate: regular rate Rhythm: regular rhythm Skin Other: warm, dry General skin exam: no rashes or lesions noted Neuro General: patient oriented x3 Cranial nerves: Yes Normal hearing present Cognition (Neuro): normal cognition Gait exam (Neuro): Normal gait present Extrem General: Yes normal to inspection, Yes capillary refill normal, Yes no clubbing, cyanosis or edema and Yes no pedal edema Psych Appearance: grossly normal and well kempt Speech and movement: Normal speech and movement present and Clear speech present Affect: normal affect Attitude: cooperative Thought process: Normal thought process present Thought content: Normal thought content present Insight: Good insight present (Psych) Judgement: Good judgement present (Psych) Assessment & Plan Assessment & Plan (1) Asthma: Code(s): J45.909 - Unspecified asthma, uncomplicated Category: Medical (2) Dyspnea: Code(s): R06.00 - Dyspnea, unspecified Category: Medical Plan Charo continues to report suboptimal response using Dulera, will add Incruse to regimen. Will also send in a prescription of albuterol as needed for acute episodes of dyspnea, wheezing, or chest tightness. Will also send for chest x- ray to assess for any parenchymal condition contributing to dyspnea. All questions were answered and patient is in agreement of plan. Will follow-up in 6-8 weeks or sooner if needed. Medications: New umeclidinium 62.5 mcg/actuation (Incruse Ellipta) 1 inh inhalation DAILY 30 ea 3RF albuterol sulfate 90 mcg/actuation 2 puffs inhalation Q4-6H PRN 1 ea 6RF shortness of breath or wheezing Discontinued budesonide-formoterol 80-4.5 mcg/actuation (Symbicort) Discontinued Reason: Patient Completed Course 2 puffs inhalation Q12H 10.2 grams 3RF Coding Level of Care Code Est Pt Level 4 (00707) Diagnoses Asthma J45.909 Dyspnea R06.00
[2024-09-22 10:31] VITALS: BP 118/60; PULSE 83; O2SAT 97; BMI 41.8
== END 2024-09-22 10:52 | disposition home or self-care (01) ==
LOC: HO.HPSW 10:09
PROVIDERS: PCP Internal Medicine; Visit Provider Nurse Practitioner Family
DX: J45.909 Unspecified asthma, uncomplicated (principal); R06.00 Dyspnea, unspecified
CPT/HCPCS: 99214

== ENCOUNTER → 2024-09-22 10:08 | Outpatient (BNVA) | payer MEDICAID, SELFPAY | PROVIDERS: PCP Internal Medicine; Visit Provider Nurse Practitioner Family | DX: G47.33 Obstructive sleep apnea (adult) (pediatric) (principal); J45.909 Unspecified asthma, uncomplicated; R06.00 Dyspnea, unspecified | CPT/HCPCS: 99212 ==

== ENCOUNTER 2024-09-23 14:37 | Outpatient (AMB) | payer MEDICAID, SELFPAY ==
--- NOTE | 2024-09-23 14:39 | A.OFFVIS_ITS ---
Vital Signs 09/23/24 14:46 Height 5 ft 2 in Weight 232 lb BMI 42.4 BP 113/56 L Blood Pressure Location Rt brachial Position Sitting Pulse 89 Intake Visit Reasons: 2 cysts head Intake Note: Patient scheduled appointment concerned with 2 cysts on scalp. Hx of pilar cyst excised August 2022. Patient c/o: tender with touch, painful when combing hair. Model Making Supervisor Required: No Accompanied by: Self / Same As Patient Allergies metformin Adverse Reaction (Severe, Verified 09/23/24 14:43) Diarrhea aspirin Adverse Reaction (Intermediate, Verified 09/23/24 14:43) Gastrointestinal Upset Medication List - Last Reconciled 09/23/24 by Jayce Myers MD albuterol sulfate 90 mcg/actuation 2 puffs inhalation Q4-6H PRN amitriptyline 25 - 50 mg PO BEDTIME amlodipine 5 mg PO DAILY [CBD topical PRN] dulaglutide (Trulicity) 1.5 mg subcut QWEEK empagliflozin (Jardiance) 25 mg PO DAILY fesoterodine ER 4 mg PO DAILY 30 days gabapentin 300 mg PO BID insulin glargine (Lantus Solostar U-100 Insulin) 85 units subcutaneously bedtime; insulin lispro (Humalog KwikPen (U-100) Insulin) 32 units subcut TID lancets (FreeStyle Lancets) As directed lisinopril 40 mg PO DAILY loperamide 2 mg PO DAILY PRN lorazepam 0.5 - 1 mg PO DAILY PRN melatonin 3 mg PO BEDTIME metoprolol succinate ER 100 mg PO DAILY mometasone-formoterol 200-5 mcg/actuation (Dulera) 2 puffs inhalation BID naloxone 4 mg/actuation intranasal omeprazole 40 mg PO DAILY phenazopyridine (Pyridium) 100 mg PO BID rosuvastatin 40 mg PO BEDTIME tramadol 50 mg PO Q12H PRN trazodone 100 mg PO BEDTIME PRN umeclidinium 62.5 mcg/actuation (Incruse Ellipta) 1 inh inhalation DAILY venlafaxine ER 150 mg PO QAM venlafaxine ER 37.5 mg PO DAILY warfarin 5 mg See Protocol PO DAILY warfarin 2.5 mg See Protocol PO QWEEK HPI HPI 2 cysts head: Details: 63-year-old female here because of a scalp cyst. She has had scalp cysts before which have been excised She points to 1 area on the parieto-occipital region where she feels there is another lump. She also wanted another area in the occipital region checked as she has some tenderness on 1 spot and is concerned that there is a 2nd cyst. She denies any drainage or skin changes. She is on Coumadin for history of DVT. [facility] Medical History (Updated 09/23/24 @ 14:56 by Jayce Myers MD) Scalp cyst Depression Elevated cholesterol Atrial dysrhythmia Asthma PERRY (obstructive sleep apnea) History of CVA (cerebrovascular accident) (~2004) Hx pulmonary embolism Factor V Leiden mutation Scalp irritation Scalp lesion DVT (deep venous thrombosis) Hypercoagulable state Hypertension Diabetes mellitus Surgical History History of endometrial ablation Hx of lumbosacral spine surgery (11/09/22) History of inferior vena caval filter placement (~1978) Hx of right knee surgery History of surgical removal of lesion (~08/27/22) History of excision of lesion History of rotator cuff surgery History of cholecystectomy Family History Maternal Grandmother Breast cancer Sister Breast cancer Social History Household Members: Significant Other Housing: Apartment (3 steps on first floor ) Are you a primary healthcare corporate account director to a significant other at home: No Do you presently have visiting nurse or other home services: No Alcohol intake: never Patient Tobacco Use Status: Former Tobacco user Tobacco use type: Cigarette Cigarette Packs Per Day: 0.5 Years Smoked: 1.5 Substance Use Type: Marijuana Current occupational status: disabled Current occupation: disability Current occupational exposures/hazards: No Review of Systems Const Denies chills and Denies fever(s) Card Denies chest pain, Denies dyspnea and Denies dyspnea on exertion Resp Denies cough, Denies dyspnea and Denies dyspnea on exertion GI Denies hematochezia and Denies change in bowel habits Denies hematuria Musc Denies back pain and Denies limited range of motion Neuro Denies focal weakness and Denies convulsions Psych Denies depression and Denies mood swings Physical Exam Vital Signs: Last Vital Signs Pulse 89 09/23/24 14:46 BP 113/56 L 09/23/24 14:46 BMI result Body Mass Index 42.4 Const Other: Morbidly obese General: comfortable and no acute distress Orientation/consciousness: patient oriented x3 HEENT Other: Scalp cysts on the parietal occipital area, about 1 cm in size, noninflamed, mildly tender, no skin changes Neck Neck: Yes no lymphadenopathy Resp Auscultation: clear to auscultation bilaterally Cardio Rhythm: regular rhythm GI Palpation (GI): Soft to palpation, nontender and no guarding Neuro General: patient oriented x3 Assessment & Plan Assessment & Plan (1) Scalp cyst: Code(s): L72.9 - Follicular cyst of the skin and subcutaneous tissue, unspecified Category: Medical Plan: She has a scalp cysts as described above. She wants this excised. I explained the technique of excision under local anesthesia. I reviewed the risks including but not limited to bleeding infections, as well as the benefits and alternatives. She says she understands and wants to proceed. This we will we will be done in the office under local anesthesia on her next visit She pointed to another area in the occipital region with some tenderness but I did not find any other cyst and this region. Coding Level of Care Code Est Pt Level 3 (09576) Diagnoses Scalp cyst L72.9
[2024-09-23 14:46] VITALS: BP 113/56; PULSE 89; BMI 42.4
== END 2024-09-23 14:54 | disposition home or self-care (01) ==
LOC: HO.HGS 14:38
PROVIDERS: PCP Internal Medicine; Visit Provider Surgery
DX: L72.9 Follicular cyst of the skin and subcutaneous tissue, unspecified (principal)
CPT/HCPCS: 99213

== ENCOUNTER → 2024-09-23 14:37 | Outpatient (BNVA) | payer MEDICAID, SELFPAY | PROVIDERS: PCP Internal Medicine; Visit Provider Surgery | DX: L72.9 Follicular cyst of the skin and subcutaneous tissue, unspecified (principal); Z79.01 Long term (current) use of anticoagulants; Z86.718 Personal history of other venous thrombosis and embolism; Z79.899 Other long term (current) drug therapy | CPT/HCPCS: 99212 ==

== ENCOUNTER 2024-10-08 13:03 | Outpatient (AMB) | payer MEDICAID, SELFPAY ==
--- NOTE | 2024-10-08 13:31 | MHC.OFFVISCO ---
Intake Intake Visit Reasons: Anticoagulation Allergies metformin Adverse Reaction (Severe, Verified 10/08/24 13:22) Diarrhea aspirin Adverse Reaction (Intermediate, Verified 10/08/24 13:22) Gastrointestinal Upset Medication List - Last Reconciled 10/08/24 by Erica Monsalve RN albuterol sulfate 90 mcg/actuation 2 puffs inhalation Q4-6H PRN amitriptyline 25 - 50 mg PO BEDTIME amlodipine 5 mg PO DAILY [CBD topical PRN] dulaglutide (Trulicity) 1.5 mg subcut QWEEK empagliflozin (Jardiance) 25 mg PO DAILY fesoterodine ER 4 mg PO DAILY 30 days gabapentin 300 mg PO BID insulin glargine (Lantus Solostar U-100 Insulin) 85 units subcutaneously bedtime; insulin lispro (Humalog KwikPen (U-100) Insulin) 32 units subcut TID lancets (FreeStyle Lancets) As directed lisinopril 40 mg PO DAILY loperamide 2 mg PO DAILY PRN lorazepam 0.5 - 1 mg PO DAILY PRN melatonin 3 mg PO BEDTIME metoprolol succinate ER 100 mg PO DAILY mometasone-formoterol 200-5 mcg/actuation (Dulera) 2 puffs inhalation BID naloxone 4 mg/actuation intranasal omeprazole 40 mg PO DAILY phenazopyridine (Pyridium) 100 mg PO BID rosuvastatin 40 mg PO BEDTIME tramadol 50 mg PO Q12H PRN trazodone 100 mg PO BEDTIME PRN umeclidinium 62.5 mcg/actuation (Incruse Ellipta) 1 inh inhalation DAILY venlafaxine ER 150 mg PO QAM venlafaxine ER 37.5 mg PO DAILY warfarin 5 mg See Protocol PO DAILY warfarin 2.5 mg See Protocol PO QWEEK Nursing Note NO CP,SOB,DIET/MED CHANGES,FALLS OR SX OF BLEEDING. CONTINUE PRESENT DOSE AND FOLLOW-UP IN 4 WEEKS GOOD UNDERSTANDING OF GE INSTR. Anti-Coag Initial Assessment Social Hx Patient Tobacco Use Status: Former Tobacco user Tobacco use type: Cigarette Smoking packs per day: 0.5 alcohol intake: never Alcohol intake frequency: does not drink Cardiovascular Hx: HTN (hx with [facility] cardiology Dr Cardona- no real dx- question of some kind condition - to have new cardiology in near future ) and Other (has feelings that she may pass out at times and has fallen 4 times and not sure why) Lung Disease HX: Asthma (age [age] years old) and DVT/PE (right calf, 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 Illness/Depression: Yes (Anxiety/depression on meds ) Coding Level of Care Code Est Patient Level 1 Diagnoses Current use of anticoagulant therapy Z79.01 Results AMB INR Fingerstick AMB INR Fingerstick 2.5 Last Edit by Erica Monsalve RN on 10/08/24 13:29 Assessment & Plan Assessment & Plan (1) Current use of anticoagulant therapy: Code(s): Z79.01 - halfway (current) use of anticoagulants Category: Medical
[2024-10-08 13:37] LABS: Prothrombin Time Whole Bld POC 29.7 sec (11.1-13.5); ~PT, ~INR - Anti Coag Clinic 2.5 (0.9-1.1)
== END 2024-10-08 13:33 | disposition home or self-care (01) ==
LOC: HO.ACS 13:03
PROVIDERS: PCP Internal Medicine; Visit Provider Internal Medicine Medical Oncology
DX: Z79.01 Long term (current) use of anticoagulants (principal)

== ENCOUNTER → 2024-10-08 13:03 | Outpatient (BNVA) | payer MEDICAID, SELFPAY | PROVIDERS: PCP Internal Medicine; Visit Provider Internal Medicine Medical Oncology | DX: D68.59 Other primary thrombophilia (principal); Z79.01 Long term (current) use of anticoagulants; Z51.81 Encounter for therapeutic drug level monitoring | CPT/HCPCS: 85610; 99211 ==

== ENCOUNTER 2024-10-26 14:14 | Outpatient (AMB) | payer MEDICAID, SELFPAY ==
--- NOTE | 2024-10-26 14:29 | A.OFFVIS_ITS ---
Vital Signs 10/26/24 14:37 Height 5 ft 2 in Weight 238 lb BMI 43.5 BP 102/71 Blood Pressure Location Rt brachial Position Sitting Pulse 89 Intake Visit Reasons: scalp cyst Intake Note: atient here for scalp cyst excision. City Dispatch Supervisor Required: No Accompanied by: Self / Same As Patient Allergies metformin Adverse Reaction (Severe, Verified 10/26/24 14:38) Diarrhea aspirin Adverse Reaction (Intermediate, Verified 10/26/24 14:38) Gastrointestinal Upset HPI HPI scalp cyst: Details: She is here for excision of a scalp cyst today. [facility] Medical History (Updated 09/23/24 @ 14:56 by Jayce Myers MD) Scalp cyst Depression Elevated cholesterol Atrial dysrhythmia Asthma PERRY (obstructive sleep apnea) History of CVA (cerebrovascular accident) (~2004) Hx pulmonary embolism Factor V Leiden mutation Scalp irritation Scalp lesion DVT (deep venous thrombosis) Hypercoagulable state Hypertension Diabetes mellitus Surgical History History of endometrial ablation Hx of lumbosacral spine surgery (11/09/22) History of inferior vena caval filter placement (~1978) Hx of right knee surgery History of surgical removal of lesion (~08/27/22) History of excision of lesion History of rotator cuff surgery History of cholecystectomy Family History Maternal Grandmother Breast cancer Sister Breast cancer Social History Household Members: Significant Other Housing: Apartment (3 steps on first floor ) Are you a primary patient care coordinator to a significant other at home: No Do you presently have visiting nurse or other home services: No Alcohol intake: never Patient Tobacco Use Status: Former Tobacco user Tobacco use type: Cigarette Cigarette Packs Per Day: 0.5 Years Smoked: 1.5 Substance Use Type: Marijuana Current occupational status: disabled Current occupation: disability Current occupational exposures/hazards: No Office Procedures Excision Details: We area was prepped and draped. Lidocaine 1% was used for local anesthesia. I made an incision on the scalp overlying the cyst with a blade 15. This carried down through the full-thickness of the skin and part of the subcutaneous layer until the cyst was visualized. I sharply dissected the cyst off of the rest of the subcutaneous layer using fine scissors until this was completely removed. This was sent as specimen. This was a 1 cm diameter cystic induration. I closed the incision with full-thickness nylon 3-0 simple interrupted sutures. Bacitracin dressing was applied and the procedure was completed. She tolerated procedure well. There were no immediate complications. There was minimal blood loss. [id number] scalp/neck/hands/feet/genitalia 0.6cm-1cm Procedure code (CPT) selection complete Assessment & Plan Assessment & Plan (1) Scalp cyst: Code(s): L72.9 - Follicular cyst of the skin and subcutaneous tissue, unspecified Category: Medical Plan: Excision was done under local anesthesia. She tolerated procedure well. There were no immediate complications. She was given wound care instructions. She can take Tylenol p.r.n. for pain. I will see her in the office in about 2 weeks for removal sutures. Coding Level of Care Code Procedure Only Diagnoses Scalp cyst L72.9 CPT Codes Scalp/Neck/Hands/Feet/Genetalia - CPT: 05911-[id number] scalp/neck/hands/feet/genitalia 0.6cm-1cm ([id number])
[2024-10-26 14:37] VITALS: BP 102/71; PULSE 89; BMI 43.5
== END 2024-10-26 14:53 | disposition home or self-care (01) ==
LOC: HO.HGS 14:15
PROVIDERS: PCP Internal Medicine; Visit Provider Surgery
DX: D17.0 Benign lipomatous neoplasm of skin and subcutaneous tissue of head, face and neck (principal)
CPT/HCPCS: 11421

== ENCOUNTER 2024-10-26 14:14 | Outpatient (REF) | payer MEDICAID, SELFPAY | END 2024-10-26 14:15 | disposition home or self-care (01) | LOC: HO.LNP 14:14 | PROVIDERS: PCP Internal Medicine; Visit Provider Surgery | DX: L72.9 Follicular cyst of the skin and subcutaneous tissue, unspecified (principal) | CPT/HCPCS: 11421; 88304 ==

== ENCOUNTER 2024-11-04 14:49 | Outpatient (AMB) | payer MEDICAID, SELFPAY ==
--- NOTE | 2024-11-04 15:13 | MHC.OFFVIS ---
Vital Signs 11/04/24 15:14 Height 5 ft 2 in Weight 229 lb 2 oz BMI 41.9 BP 100/56 L Blood Pressure Location Rt brachial Position Sitting Pulse 87 Pulse Source Pulse Oximeter Pulse Oximetry (%) 98 Oxygen Delivery Method Room Air Intake Visit Reasons: Obstructive sleep apnea Allergies metformin Adverse Reaction (Severe, Verified 11/12/24 09:59) Diarrhea aspirin Adverse Reaction (Intermediate, Verified 11/12/24 09:59) Gastrointestinal Upset HPI HPI Obstructive sleep apnea: Details: Charo is a pleasant 64 year old female, minimal former smoker, with underlying asthma. She was last seen in this office September 2023. She has been using Dulera and with suboptimal effect, continuing with dyspnea upon exertion. She denies cough, wheezing or chest tightness. Previously Spiriva was ordered but she felt it to be ?too strong? and discontinued use. Denies any benefit from Incruse. Asthma has been a long-standing condition for the patient, with the last PFT conducted in 2020 suggestive of asthma. She experiences dyspnea primarily when climbing stairs or during activities like grocery shopping. The patient has a history of sleep apnea, previously confirmed by a sleep study years ago, but she is not currently using CPAP therapy. She reports waking up during the night with coughing and experiences daytime tiredness and morning headaches. [facility] Medical History (Updated 11/12/24 @ 10:08 by Jayce Myers MD) Lipoma of scalp Scalp cyst Depression Elevated cholesterol Atrial dysrhythmia Asthma PERRY (obstructive sleep apnea) History of CVA (cerebrovascular accident) (~2004) Hx pulmonary embolism Factor V Leiden mutation Scalp irritation Scalp lesion DVT (deep venous thrombosis) Hypercoagulable state Hypertension Diabetes mellitus Surgical History Hx of surgical procedure History of endometrial ablation Hx of lumbosacral spine surgery (11/09/22) History of inferior vena caval filter placement (~1978) Hx of right knee surgery History of surgical removal of lesion (~08/27/22) History of excision of lesion History of rotator cuff surgery History of cholecystectomy Family History Maternal Grandmother Breast cancer Sister Breast cancer Social History Household Members: Significant Other Housing: Apartment (3 steps on first floor ) Are you a primary career transition specialist to a significant other at home: No Do you presently have visiting nurse or other home services: No Alcohol intake: never Patient Tobacco Use Status: Former Tobacco user Tobacco use type: Cigarette Cigarette Packs Per Day: 0.5 Years Smoked: 1.5 Substance Use Type: Marijuana Current occupational status: disabled Current occupation: disability Current occupational exposures/hazards: No Review of Systems Const Denies chills, Denies excessive sweating, Denies fever(s), Denies headache(s) and Denies night sweats Eyes Denies dry eyes, Denies irritation and Denies itchy eyes ENT Reports Normal hearing present, Denies headache(s), Denies nasal congestion, Denies nasal discharge, Denies post nasal drip and Denies sore throat Card Denies chest pain, Denies chest pain at rest, Denies chest pain with activity, Denies claudication, Denies leg edema, Denies orthopnea and Denies paroxysmal nocturnal dyspnea Resp Denies chest congestion, Denies cough, Denies excessive phlegm production, Denies pain on inspiration, Denies pain with cough, Denies stridor and Denies wheezing Musc Denies myalgias Neuro Reports Normal hearing present and Denies headache(s) Endo Denies excessive sweating Jose Raul/Lymph Denies lymphadenopathy Aller/Immun Denies itchy eyes, Denies seasonal rhinorrhea and Denies wheezing Physical Exam Vital Signs: Last Vital Signs Pulse 87 11/04/24 15:14 BP 100/56 L 11/04/24 15:14 Pulse Ox 98 11/04/24 15:14 Oxygen Delivery Method Room Air 11/04/24 15:14 BMI result Body Mass Index 41.9 Const General: cooperative, healthy appearing, comfortable, no acute distress, well developed and alert Nutritional Appearance: obese Orientation/consciousness: patient oriented x3 Limitations: no limitations HEENT Head: Yes normal to inspection, Yes normocephalic and Yes atraumatic Ears: hearing grossly normal bilaterally and external ears normal Eyes General: appearance normal, both eyes and all related structures Eyelids: Yes eyelids normal Sclerae: sclerae normal EOM: EOMs intact bilaterally Neck Neck: Yes normal visual inspection and Yes no lymphadenopathy Lymphatic: no lymphadenopathy noted Chest Chest palpation & inspection: normal inspection of the chest Resp Effort & Inspection: normal respiratory effort, able to speak in complete sentences, no audible wheezes, no cough, no stridor, not tachypneic, no tripod positioning and no use of accessory muscles Auscultation: clear to auscultation bilaterally Cardio Jugular venous distension: no JVD Rate: regular rate Rhythm: regular rhythm Skin Other: warm, dry General skin exam: no rashes or lesions noted Neuro General: patient oriented x3 Cranial nerves: Yes Normal hearing present Cognition (Neuro): normal cognition Gait exam (Neuro): Normal gait present Extrem General: Yes normal to inspection, Yes capillary refill normal, Yes no clubbing, cyanosis or edema and Yes no pedal edema Psych Appearance: grossly normal and well kempt Speech and movement: Normal speech and movement present and Clear speech present Affect: normal affect Attitude: cooperative Thought process: Normal thought process present Thought content: Normal thought content present Insight: Good insight present (Psych) Judgement: Good judgement present (Psych) Assessment & Plan Assessment & Plan (1) Asthma: Code(s): J45.909 - Unspecified asthma, uncomplicated Category: Medical (2) Dyspnea: Code(s): R06.00 - Dyspnea, unspecified Category: Medical Plan Charo continues to report suboptimal response using Dulera, and no change with Incruse. The patient will undergo a PFT to test to assess lung function and determine any changes in asthma severity. She is advised to continue using Dulera as prescribed and to monitor symptoms. Will also send for chest x-ray to assess for any parenchymal condition contributing to dyspnea. Given the persistence of symptoms, a repeat sleep study may be considered to reassess the presence of sleep apnea. The patient is advised to monitor symptoms and report any significant changes. All questions were answered and patient is in agreement of plan. Will follow-up to review results or sooner if needed. Orders: Orders XR chest 2V 11/05/24 R06.00 - Dyspnea, unspecified PFT pulmonary function test 11/04/24 J45.909 - Unspecified asthma, uncomplicated Coding Level of Care Code Est Pt Level 4 (01993) Diagnoses Asthma J45.909 Dyspnea R06.00
[2024-11-04 15:14] VITALS: BP 100/56; PULSE 87; O2SAT 98; BMI 41.9
== END 2024-11-04 15:56 | disposition home or self-care (01) ==
LOC: HO.HPSW 14:50
PROVIDERS: PCP Internal Medicine; Visit Provider Nurse Practitioner Family
DX: J45.909 Unspecified asthma, uncomplicated (principal); R06.00 Dyspnea, unspecified
CPT/HCPCS: 99214

== ENCOUNTER → 2024-11-04 14:49 | Outpatient (BNVA) | payer MEDICAID, SELFPAY | PROVIDERS: PCP Internal Medicine; Visit Provider Nurse Practitioner Family | DX: G47.33 Obstructive sleep apnea (adult) (pediatric) (principal); J45.909 Unspecified asthma, uncomplicated; R06.00 Dyspnea, unspecified | CPT/HCPCS: 99212 ==

== ENCOUNTER 2024-11-05 08:53 | Outpatient (REF) | payer MEDICAID, SELFPAY ==
--- NOTE | ~2024-11-05 | XR_ITS ---
EXAMINATION: XR CHEST CLINICAL INFORMATION: R06.00 - Dyspnea, unspecified COMPARISON: None available. TECHNIQUE: 2 views of the chest were obtained. FINDINGS: The cardiac, hilar, and mediastinal contours are normal. Aortic mural calcifications. The lungs are clear bilaterally. There is no pneumothorax or pleural effusion. There is no focal osseous or soft tissue abnormality. There are mild degenerative changes throughout the spine. XR/XR chest 2V IMPRESSION: No active pulmonary disease. Electronically signed by: Artemio Go MD 11/05/2024 09:25 AM EDT
== END 2024-11-05 08:54 | disposition home or self-care (01) ==
LOC: HO.XRAY 08:53
PROVIDERS: PCP Internal Medicine; Visit Provider Nurse Practitioner Family
DX: R06.00 Dyspnea, unspecified (principal); D68.59 Other primary thrombophilia; Z51.81 Encounter for therapeutic drug level monitoring; Z79.01 Long term (current) use of anticoagulants
CPT/HCPCS: 71046; 85610; 99211

== ENCOUNTER → 2024-11-05 08:57 | Outpatient (BNV) | payer MEDICAID, SELFPAY | PROVIDERS: PCP Internal Medicine; Visit Provider Radiology Diagnostic Radiology | DX: R06.00 Dyspnea, unspecified (principal) | CPT/HCPCS: 71046 ==

== ENCOUNTER 2024-11-05 09:23 | Outpatient (AMB) | payer MEDICAID, SELFPAY ==
[2024-11-05 09:33] LABS: Prothrombin Time Whole Bld POC 29.9 sec (11.1-13.5); ~PT, ~INR - Anti Coag Clinic 2.5 (0.9-1.1)
--- NOTE | 2024-11-05 09:38 | MHC.OFFVISCO ---
Intake Intake Visit Reasons: Anticoagulation Allergies metformin Adverse Reaction (Severe, Verified 11/05/24 09:28) Diarrhea aspirin Adverse Reaction (Intermediate, Verified 11/05/24 09:28) Gastrointestinal Upset Medication List - Last Reconciled 11/05/24 by Violette Henson, RN albuterol sulfate 90 mcg/actuation 2 puffs inhalation Q4-6H PRN amitriptyline 25 - 50 mg PO BEDTIME amlodipine 5 mg PO DAILY [CBD topical PRN] dulaglutide (Trulicity) 1.5 mg subcut QWEEK empagliflozin (Jardiance) 25 mg PO DAILY fesoterodine ER 4 mg PO DAILY 30 days gabapentin 300 mg PO BID insulin glargine (Lantus Solostar U-100 Insulin) 85 units subcutaneously bedtime; insulin lispro (Humalog KwikPen (U-100) Insulin) 32 units subcut TID lancets (FreeStyle Lancets) As directed lisinopril 40 mg PO DAILY loperamide 2 mg PO DAILY PRN lorazepam 0.5 - 1 mg PO DAILY PRN melatonin 3 mg PO BEDTIME metoprolol succinate ER 100 mg PO DAILY mometasone-formoterol 200-5 mcg/actuation (Dulera) 2 puffs inhalation BID naloxone 4 mg/actuation intranasal omeprazole 40 mg PO DAILY phenazopyridine (Pyridium) 100 mg PO BID rosuvastatin 40 mg PO BEDTIME tramadol 50 mg PO Q12H PRN trazodone 100 mg PO BEDTIME PRN umeclidinium 62.5 mcg/actuation (Incruse Ellipta) 1 inh inhalation DAILY venlafaxine ER 150 mg PO QAM venlafaxine ER 37.5 mg PO DAILY warfarin 5 mg See Protocol PO DAILY warfarin 2.5 mg See Protocol PO QWEEK Nursing Note INR: 2.5 in therapeutic range of 2-3 Medications and supplements reviewed No changes in health, diet, medications, or supplements, Denies any signs and symptoms of bleeding or bruising or clotting. Bleeding, bruising, clotting discussed Nutritional guidance given Dose: 5mg X 6 days and 2.5mg X 1 day (Sun) F/U INR: 4 weeks Patient verbalizes understanding of instructions given Anti-Coag Initial Assessment Social Hx Patient Tobacco Use Status: Former Tobacco user Tobacco use type: Cigarette Smoking packs per day: 0.5 alcohol intake: never Alcohol intake frequency: does not drink Cardiovascular Hx: HTN (hx with [facility] cardiology Dr Cardona- no real dx- question of some kind condition - to have new cardiology in near future ) and Other (has feelings that she may pass out at times and has fallen 4 times and not sure why) Lung Disease HX: Asthma (age [age] years old) and DVT/PE (right calf, 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
== END 2024-11-05 09:40 | disposition home or self-care (01) ==
LOC: HO.ACS 09:23
PROVIDERS: PCP Internal Medicine; Visit Provider Internal Medicine Medical Oncology
DX: Z79.01 Long term (current) use of anticoagulants (principal)

== ENCOUNTER 2024-11-12 09:41 | Outpatient (AMB) | payer MEDICAID, SELFPAY ==
--- NOTE | 2024-11-12 09:51 | A.OFFVIS_ITS ---
Vital Signs 11/12/24 09:58 Height 5 ft 2 in Weight 230 lb BMI 42.1 BP 112/56 L Blood Pressure Location Rt radial Position Sitting Pulse 95 Intake Visit Reasons: s/p excision cyst on scalp Intake Note: Patient here s/p excision on left posterior scalp. Patient c/o: no concerns. Two sutures removed without incident. Site healing well. No bleeding or oozing noticed. WLE: 10-26-2024 Customer Relationship Specialist Required: No Accompanied by: Self / Same As Patient Allergies metformin Adverse Reaction (Severe, Verified 11/12/24 09:59) Diarrhea aspirin Adverse Reaction (Intermediate, Verified 11/12/24 09:59) Gastrointestinal Upset Medication List - Last Reconciled 11/12/24 by Jayce Myers MD albuterol sulfate 90 mcg/actuation 2 puffs inhalation Q4-6H PRN amitriptyline 25 - 50 mg PO BEDTIME amlodipine 5 mg PO DAILY [CBD topical PRN] dulaglutide (Trulicity) 1.5 mg subcut QWEEK empagliflozin (Jardiance) 25 mg PO DAILY fesoterodine ER 4 mg PO DAILY 30 days gabapentin 300 mg PO BID insulin glargine (Lantus Solostar U-100 Insulin) 85 units subcutaneously bedtime; insulin lispro (Humalog KwikPen (U-100) Insulin) 32 units subcut TID lancets (FreeStyle Lancets) As directed lisinopril 40 mg PO DAILY loperamide 2 mg PO DAILY PRN lorazepam 0.5 - 1 mg PO DAILY PRN melatonin 3 mg PO BEDTIME metoprolol succinate ER 100 mg PO DAILY mometasone-formoterol 200-5 mcg/actuation (Dulera) 2 puffs inhalation BID naloxone 4 mg/actuation intranasal omeprazole 40 mg PO DAILY phenazopyridine (Pyridium) 100 mg PO BID rosuvastatin 40 mg PO BEDTIME tramadol 50 mg PO Q12H PRN trazodone 100 mg PO BEDTIME PRN umeclidinium 62.5 mcg/actuation (Incruse Ellipta) 1 inh inhalation DAILY venlafaxine ER 150 mg PO QAM venlafaxine ER 37.5 mg PO DAILY warfarin 5 mg See Protocol PO DAILY warfarin 2.5 mg See Protocol PO QWEEK HPI HPI s/p excision cyst on scalp: Details: She had mass removed from the scalp under local anesthesia last 10/27/2024. She says she has no problems currently. Denies any significant pain. [facility] Medical History (Updated 11/12/24 @ 10:08 by Jayce Myers MD) Lipoma of scalp Scalp cyst Depression Elevated cholesterol Atrial dysrhythmia Asthma PERRY (obstructive sleep apnea) History of CVA (cerebrovascular accident) (~2004) Hx pulmonary embolism Factor V Leiden mutation Scalp irritation Scalp lesion DVT (deep venous thrombosis) Hypercoagulable state Hypertension Diabetes mellitus Surgical History Hx of surgical procedure History of endometrial ablation Hx of lumbosacral spine surgery (11/09/22) History of inferior vena caval filter placement (~1978) Hx of right knee surgery History of surgical removal of lesion (~08/27/22) History of excision of lesion History of rotator cuff surgery History of cholecystectomy Family History Maternal Grandmother Breast cancer Sister Breast cancer Social History Household Members: Significant Other Housing: Apartment (3 steps on first floor ) Are you a primary ocular care technologist to a significant other at home: No Do you presently have visiting nurse or other home services: No Alcohol intake: never Patient Tobacco Use Status: Former Tobacco user Tobacco use type: Cigarette Cigarette Packs Per Day: 0.5 Years Smoked: 1.5 Substance Use Type: Marijuana Current occupational status: disabled Current occupation: disability Current occupational exposures/hazards: No Review of Systems Const Denies chills and Denies fever(s) Physical Exam Vital Signs: Last Vital Signs Pulse 95 11/12/24 09:58 BP 112/56 L 11/12/24 09:58 BMI result Body Mass Index 42.1 Const General: comfortable and no acute distress HEENT Other: Excision site on the scalp is well healed, not infected Assessment & Plan Assessment & Plan (1) Lipoma of scalp: Code(s): D17.0 - Benign lipomatous neoplasm of skin and subcutaneous tissue of head, face and neck Category: Medical Plan: Status post excision. Her path report shows a lipoma. Her sutures were removed. Her incision site is well healed. She can follow up on a p.r.n. basis. Coding Level of Care Code Global (44858) Diagnoses Lipoma of scalp D17.0
[2024-11-12 09:58] VITALS: BP 112/56; PULSE 95; BMI 42.1
== END 2024-11-12 10:06 | disposition home or self-care (01) ==
LOC: HO.HGS 09:42
PROVIDERS: PCP Internal Medicine; Visit Provider Surgery
DX: D17.0 Benign lipomatous neoplasm of skin and subcutaneous tissue of head, face and neck (principal)
CPT/HCPCS: 99024

== ENCOUNTER → 2024-11-12 09:41 | Outpatient (BNVA) | payer MEDICAID, SELFPAY | PROVIDERS: PCP Internal Medicine; Visit Provider Surgery | DX: D17.0 Benign lipomatous neoplasm of skin and subcutaneous tissue of head, face and neck (principal) | CPT/HCPCS: 99212 ==

== ENCOUNTER 2024-11-19 08:18 | Outpatient (REF) | payer MEDICAID, SELFPAY ==
--- NOTE | ~2024-11-19 | XR_ITS ---
EXAMINATION: XR KNEE, BILATERAL CLINICAL INFORMATION: bilateral knee pain COMPARISON: July 09, 2023 and April 15, 2023 TECHNIQUE: AP lateral and sunrise views of both knees. FINDINGS: There is joint space narrowing involving mostly the medial and to a lesser extent the lateral compartments with sclerosis along the articular surface of the tibial plateau and femoral condyles. No acute cortical disruption or malalignment. No suprapatellar bursa joint effusion. Exostosis at the quadriceps tendon insertion, right greater than the left knee. No lytic or blastic lesions. Vascular calcifications. No gross calcifications in the menisci. XR/XR Knee Benjamín 3V IMPRESSION: Bicompartmental osteoarthrosis/osteoarthritis involving mostly the medial compartments of the knees, moderate, similar since prior exam. Enthesopathy, quadriceps tendon insertion. Atherosclerosis disease, peripheral. Electronically signed by: Siddhartha Galindo MD 11/19/2024 08:42 AM EDT
== END 2024-11-19 08:19 | disposition home or self-care (01) ==
LOC: HO.HOSX 08:18
PROVIDERS: Visit Provider Orthopaedic Surgery
DX: M17.0 Bilateral primary osteoarthritis of knee (principal); Z79.899 Other long term (current) drug therapy
CPT/HCPCS: 73562; 99212

== ENCOUNTER 2024-11-19 08:21 | Outpatient (AMB) | payer MEDICAID, SELFPAY ==
--- NOTE | 2024-11-19 08:37 | A.OFFVIS_ITS ---
Intake Visit Reasons: OV-F/u bilat knee pain Intake Note: Charo is a 64 year old woman who presents with complaints of bilateral knee pains. The patient states that she got minimal relief from the viscosupplementation injections that were given to her at her last visit. She continues with her home exercise program and weight loss program. Allergies metformin Adverse Reaction (Severe, Verified 11/19/24 08:38) Diarrhea aspirin Adverse Reaction (Intermediate, Verified 11/19/24 08:38) Gastrointestinal Upset Medication List - Last Reconciled 11/19/24 by George Jones MD albuterol sulfate 90 mcg/actuation 2 puffs inhalation Q4-6H PRN amitriptyline 25 - 50 mg PO BEDTIME amlodipine 5 mg PO DAILY [CBD topical PRN] dulaglutide (Trulicity) 1.5 mg subcut QWEEK empagliflozin (Jardiance) 25 mg PO DAILY fesoterodine ER 4 mg PO DAILY 30 days gabapentin 300 mg PO BID insulin glargine (Lantus Solostar U-100 Insulin) 85 units subcutaneously bedtime; insulin lispro (Humalog KwikPen (U-100) Insulin) 32 units subcut TID lancets (FreeStyle Lancets) As directed lisinopril 40 mg PO DAILY loperamide 2 mg PO DAILY PRN lorazepam 0.5 - 1 mg PO DAILY PRN melatonin 3 mg PO BEDTIME metoprolol succinate ER 100 mg PO DAILY mometasone-formoterol 200-5 mcg/actuation (Dulera) 2 puffs inhalation BID naloxone 4 mg/actuation intranasal omeprazole 40 mg PO DAILY phenazopyridine (Pyridium) 100 mg PO BID rosuvastatin 40 mg PO BEDTIME tramadol 50 mg PO Q12H PRN trazodone 100 mg PO BEDTIME PRN umeclidinium 62.5 mcg/actuation (Incruse Ellipta) 1 inh inhalation DAILY venlafaxine ER 150 mg PO QAM venlafaxine ER 37.5 mg PO DAILY warfarin 5 mg See Protocol PO DAILY warfarin 2.5 mg See Protocol PO QWEEK PFSH Medical History Lipoma of scalp Scalp cyst Depression Elevated cholesterol Atrial dysrhythmia Asthma PERRY (obstructive sleep apnea) History of CVA (cerebrovascular accident) (~2004) Hx pulmonary embolism Factor V Leiden mutation Scalp irritation Scalp lesion DVT (deep venous thrombosis) Hypercoagulable state Hypertension Diabetes mellitus Surgical History Hx of surgical procedure History of endometrial ablation Hx of lumbosacral spine surgery (11/09/22) History of inferior vena caval filter placement (~1978) Hx of right knee surgery History of surgical removal of lesion (~08/27/22) History of excision of lesion History of rotator cuff surgery History of cholecystectomy Family History Maternal Grandmother Breast cancer Sister Breast cancer Social History Household Members: Significant Other Housing: Apartment (3 steps on first floor ) Are you a primary resident care spec to a significant other at home: No Do you presently have visiting nurse or other home services: No Alcohol intake: never Patient Tobacco Use Status: Former Tobacco user Tobacco use type: Cigarette Cigarette Packs Per Day: 0.5 Years Smoked: 1.5 Substance Use Type: Marijuana Current occupational status: disabled Current occupation: disability Current occupational exposures/hazards: No Physical Exam Const Other: Well-nourished well-developed very friendly female awake alert and oriented x3 in no acute distress Extrem Other: Bilateral knee examination shows minimal effusions, mild crepitus with range of motion, no instability Results Reviewed Results Reviewed: X-rays of the patient's bilateral knees taken today show mild diffuse joint space narrowing, no acute bony abnormalities Assessment & Plan Assessment & Plan (1) Osteoarthritis of left knee: Code(s): M17.12 - Unilateral primary osteoarthritis, left knee Category: Medical (2) Osteoarthritis of right knee: Code(s): M17.11 - Unilateral primary osteoarthritis, right knee Category: Medical Plan Ms. Le presents with bilateral knee pains due to early arthritis. At this point she has failed arthroscopic surgery, cortisone injections and viscosupplementation injections. I did recommend that she continue with her weight loss program which should help significantly. I will also refer her to Dr. Machado in our pain management department to get his opinion regarding her nonsurgical treatment options. Feel free to call me at any time should questions regarding her orthopedic management arise. I spent 22 minutes in reviewing the patient's records and imaging studies, seeing the patient and documenting in the medical record. Orders: Orders XR Knee Benjamín 3V Today M25.561 - Pain in right knee, M25.562 - Pain in left knee Referrals Pain Management Referral M17.11 - Unilateral primary osteoarthritis, right knee, M17.12 - Unilateral primary osteoarthritis, left knee Coding Level of Care Code Est Pt Level 3 (41183) Complex EM visit Add On G2211 Diagnoses Osteoarthritis of left knee M17.12 Osteoarthritis of right knee M17.11
== END 2024-11-19 08:54 | disposition home or self-care (01) ==
LOC: HO.HOS 08:22
PROVIDERS: PCP Internal Medicine; Visit Provider Orthopaedic Surgery
DX: M17.0 Bilateral primary osteoarthritis of knee (principal)
CPT/HCPCS: 99213

== ENCOUNTER → 2024-11-19 08:24 | Outpatient (BNV) | payer MEDICAID, SELFPAY | PROVIDERS: Visit Provider Radiology Diagnostic Radiology | DX: M17.0 Bilateral primary osteoarthritis of knee (principal) | CPT/HCPCS: 73562 ==

== ENCOUNTER 2024-12-10 07:55 | Outpatient (REF) | payer MEDICAID, SELFPAY ==
[2024-12-10 08:37] LABS: Appearance Urine Cloudy; Glucose Urine UA >=1000 mg/dL (Negative); PH 5.0 (5.0-9.0); Specific Gravity - Urine >= 1.030 (1.005-1.025); UMIC TRIGGER UA YES
== END 2024-12-10 07:56 | disposition home or self-care (01) ==
LOC: HO.LAB 07:55
PROVIDERS: PCP Internal Medicine; Visit Provider Urology
DX: N32.81 Overactive bladder (principal); N39.46 Mixed incontinence; R39.9 Unspecified symptoms and signs involving the genitourinary system
CPT/HCPCS: 81001; 85610; 87086; 99211

== ENCOUNTER 2024-12-10 08:02 | Outpatient (AMB) | payer MEDICAID, SELFPAY ==
[2024-12-10 08:19] LABS: Prothrombin Time Whole Bld POC 57.2 sec (11.1-13.5); ~PT, ~INR - Anti Coag Clinic 4.8 (0.9-1.1)
--- NOTE | 2024-12-10 08:28 | MHC.OFFVISCO ---
Intake Intake Visit Reasons: Anticoagulation Allergies metformin Adverse Reaction (Severe, Verified 12/10/24 08:14) Diarrhea aspirin Adverse Reaction (Intermediate, Verified 12/10/24 08:14) Gastrointestinal Upset Medication List - Last Reconciled 12/10/24 by Violette Henson, RN albuterol sulfate 90 mcg/actuation 2 puffs inhalation Q4-6H PRN amitriptyline 25 - 50 mg PO BEDTIME amlodipine 5 mg PO DAILY [CBD topical PRN] dulaglutide (Trulicity) 1.5 mg subcut QWEEK empagliflozin (Jardiance) 25 mg PO DAILY fesoterodine ER 4 mg PO DAILY 30 days gabapentin 300 mg PO BID insulin glargine (Lantus Solostar U-100 Insulin) 85 units subcutaneously bedtime; insulin lispro (Humalog KwikPen (U-100) Insulin) 32 units subcut TID lancets (FreeStyle Lancets) As directed lisinopril 40 mg PO DAILY loperamide 2 mg PO DAILY PRN lorazepam 0.5 - 1 mg PO DAILY PRN melatonin 3 mg PO BEDTIME metoprolol succinate ER 100 mg PO DAILY mometasone-formoterol 200-5 mcg/actuation (Dulera) 2 puffs inhalation BID naloxone 4 mg/actuation intranasal omeprazole 40 mg PO DAILY phenazopyridine (Pyridium) 100 mg PO BID rosuvastatin 40 mg PO BEDTIME tramadol 50 mg PO Q12H PRN trazodone 100 mg PO BEDTIME PRN umeclidinium 62.5 mcg/actuation (Incruse Ellipta) 1 inh inhalation DAILY venlafaxine ER 150 mg PO QAM venlafaxine ER 37.5 mg PO DAILY warfarin 5 mg See Protocol PO DAILY warfarin 2.5 mg See Protocol PO QWEEK Nursing Note Pt to [facility] not feeling well . States she thinks she has a UTI or kidney infection. Has been having blood in the urine. She called Dr Hill who ordered a urinalysis. Pt gave that sample before coming to [facility]. No results as of yet. INR: 4.8 out of therapeutic range of 2-3 Medications and supplements reviewed Patient status: denies fever but has been tired with no appetite. BP done 108/62, HR 92 regular, no resp distress. Color pale, skin warm and dry. Medications or supplements: no changes Diet: no appetite Denies any signs and symptoms of bleeding or clotting or unusual bruising Bleeding, bruising, clotting discussed Nutritional guidance given: to have a serving of greens today. States she will have spinach. Dose: hold today's dose and return tomorrow for retest. F/U INR Date: 12/10/24 Patient verbalizing understanding of instructions given. Anti-Coag Initial Assessment Social Hx Patient Tobacco Use Status: Former Tobacco user Tobacco use type: Cigarette Smoking packs per day: 0.5 alcohol intake: never Alcohol intake frequency: does not drink Cardiovascular Hx: HTN (hx with [facility] cardiology Dr Cardona- no real dx- question of some kind condition - to have new cardiology in near future ) and Other (has feelings that she may pass out at times and has fallen 4 times and not sure why) Lung Disease HX: Asthma (age [age] years old) and DVT/PE (right calf, 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 Illness/Depression: Yes (Anxiety/depression on meds ) Coding Level of Care Code Est Patient Level 1 Diagnoses Current use of anticoagulant therapy Z79.01 Results AMB INR Fingerstick AMB INR Fingerstick 4.8 Last Edit by Violette Henson RN on 12/10/24 08:27 interface delay Assessment & Plan Assessment & Plan (1) Current use of anticoagulant therapy: Code(s): Z79.01 - half-way (current) use of anticoagulants Category: Medical
== END 2024-12-10 08:36 | disposition home or self-care (01) ==
LOC: HO.ACS 08:02
PROVIDERS: PCP Internal Medicine; Visit Provider Internal Medicine Medical Oncology
DX: Z79.01 Long term (current) use of anticoagulants (principal)

== ENCOUNTER 2024-12-11 14:08 | Outpatient (AMB) | payer MEDICAID, SELFPAY ==
[2024-12-11 14:44] LABS: Prothrombin Time Whole Bld POC 41.1 sec (11.1-13.5); ~PT, ~INR - Anti Coag Clinic 3.4 (0.9-1.1)
--- NOTE | 2024-12-11 14:54 | MHC.OFFVISCO ---
Intake Intake Visit Reasons: Anticoagulation Allergies metformin Adverse Reaction (Severe, Verified 12/11/24 14:32) Diarrhea aspirin Adverse Reaction (Intermediate, Verified 12/11/24 14:32) Gastrointestinal Upset Medication List - Last Reconciled 12/11/24 by Patricia Holman RN albuterol sulfate 90 mcg/actuation 2 puffs inhalation Q4-6H PRN amitriptyline 25 - 50 mg PO BEDTIME amlodipine 5 mg PO DAILY [CBD topical PRN] dulaglutide (Trulicity) mg subcut QWEEK empagliflozin (Jardiance) 25 mg PO DAILY fesoterodine ER 4 mg PO DAILY 30 days gabapentin 300 mg PO BID insulin glargine (Lantus Solostar U-100 Insulin) 50 units subcutaneously am and bedtime; insulin lispro (Humalog KwikPen (U-100) Insulin) 24 units subcut TID lancets (FreeStyle Lancets) As directed lisinopril 40 mg PO DAILY loperamide 2 mg PO DAILY PRN lorazepam 0.5 - 1 mg PO DAILY PRN melatonin 3 mg PO BEDTIME metoprolol succinate ER 100 mg PO DAILY mometasone-formoterol 200-5 mcg/actuation (Dulera) 2 puffs inhalation BID naloxone 4 mg/actuation intranasal omeprazole 40 mg PO DAILY phenazopyridine (Pyridium) 100 mg PO BID rosuvastatin 40 mg PO BEDTIME tramadol 50 mg PO Q12H PRN trazodone 100 mg PO BEDTIME PRN umeclidinium 62.5 mcg/actuation (Incruse Ellipta) 1 inh inhalation DAILY venlafaxine ER 150 mg PO QAM venlafaxine ER 37.5 mg PO DAILY warfarin 5 mg See Protocol PO DAILY warfarin 2.5 mg See Protocol PO QWEEK Nursing Note INR 3.4 out of therapeutic range Medications and supplements reviewed Patient status: Yesterday INR 4.8 warfarin was held - she has been on trulicity and dose has been increased for several months, pt also was feeling ill with UTI went to [facility] to be seen and place on antbx cefpoxime x 10 days- Antbiotic researched it can have severe risk of bleeding and raise the INR - onset unknown. *Pt states she is starting to feel much better *Appetite is gradually improving- ate greens yesterday * Discussed UTI's in how to prevent them, plus dietary foods to help and staying hydrated Medications or supplements: antibiotic for UTI x 10 days Diet: improving Denies any signs and symptoms of bleeding or clotting or unusual bruising Bleeding, bruising, clotting discussed Nutritional guidance given: viral for INR and UTI Dose: warfarin dose was held yesterday will only take 2.5mg today, 5mg sat, 2.5mg Sun and recheck Saturday due to severity of antbx has on warfarin F/U INR Date: 12/14/2024 ?? Patient verbalizing understanding of instructions given. Anti-Coag Initial Assessment Social Hx Patient Tobacco Use Status: Former Tobacco user Tobacco use type: Cigarette Smoking packs per day: 0.5 alcohol intake: never Alcohol intake frequency: does not drink Cardiovascular Hx: HTN (hx with [facility] cardiology Dr Cardona- no real dx- question of some kind condition - to have new cardiology in near future ) and Other (has feelings that she may pass out at times and has fallen 4 times and not sure why) Lung Disease HX: Asthma (age [age] years old) and DVT/PE (right calf, 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 Illness/Depression: Yes (Anxiety/depression on meds ) Coding Level of Care Code Est Patient Level 1 Diagnoses Current use of anticoagulant therapy Z79.01 Assessment & Plan Assessment & Plan (1) Current use of anticoagulant therapy: Code(s): Z79.01 - FPC (current) use of anticoagulants Category: Medical Medications: Discontinued nitrofurantoin monohyd/m-cryst 100 mg (Macrobid) must administer with a meal/food Discontinued Reason: Entered in error 100 mg PO BID 7 days 14 caps 0RF
== END 2024-12-11 15:03 | disposition home or self-care (01) ==
LOC: HO.ACS 14:08
PROVIDERS: PCP Internal Medicine; Visit Provider Internal Medicine Medical Oncology
DX: Z79.01 Long term (current) use of anticoagulants (principal)

== ENCOUNTER → 2024-12-11 14:08 | Outpatient (BNVA) | payer MEDICAID, SELFPAY | PROVIDERS: PCP Internal Medicine; Visit Provider Internal Medicine Medical Oncology | DX: D68.59 Other primary thrombophilia (principal); Z79.01 Long term (current) use of anticoagulants; Z51.81 Encounter for therapeutic drug level monitoring | CPT/HCPCS: 85610; 99211 ==

== ENCOUNTER 2024-12-14 09:55 | Outpatient (AMB) | payer MEDICAID, SELFPAY ==
[2024-12-14 10:06] LABS: Prothrombin Time Whole Bld POC 35.7 sec (11.1-13.5); ~PT, ~INR - Anti Coag Clinic 3.0 (0.9-1.1)
--- NOTE | 2024-12-14 10:10 | MHC.OFFVISCO ---
Intake Intake Visit Reasons: Anticoagulation Allergies metformin Adverse Reaction (Severe, Verified 12/14/24 09:58) Diarrhea aspirin Adverse Reaction (Intermediate, Verified 12/14/24 09:58) Gastrointestinal Upset Medication List - Last Reconciled 12/14/24 by Violette Henson, RN albuterol sulfate 90 mcg/actuation 2 puffs inhalation Q4-6H PRN amitriptyline 25 - 50 mg PO BEDTIME amlodipine 5 mg PO DAILY [CBD topical PRN] dulaglutide (Trulicity) mg subcut QWEEK empagliflozin (Jardiance) 25 mg PO DAILY fesoterodine ER 4 mg PO DAILY 30 days gabapentin 300 mg PO BID insulin glargine (Lantus Solostar U-100 Insulin) 50 units subcutaneously am and bedtime; insulin lispro (Humalog KwikPen (U-100) Insulin) 24 units subcut TID lancets (FreeStyle Lancets) As directed lisinopril 40 mg PO DAILY loperamide 2 mg PO DAILY PRN lorazepam 0.5 - 1 mg PO DAILY PRN melatonin 3 mg PO BEDTIME metoprolol succinate ER 100 mg PO DAILY mometasone-formoterol 200-5 mcg/actuation (Dulera) 2 puffs inhalation BID naloxone 4 mg/actuation intranasal omeprazole 40 mg PO DAILY phenazopyridine (Pyridium) 100 mg PO BID rosuvastatin 40 mg PO BEDTIME tramadol 50 mg PO Q12H PRN trazodone 100 mg PO BEDTIME PRN umeclidinium 62.5 mcg/actuation (Incruse Ellipta) 1 inh inhalation DAILY venlafaxine ER 150 mg PO QAM venlafaxine ER 37.5 mg PO DAILY warfarin 5 mg See Protocol PO DAILY warfarin 2.5 mg See Protocol PO QWEEK Nursing Note INR: 3.0 in therapeutic range of 2-3 On Cefpodoxime for UTI which can raise the INR. Pt has increased her greens intake. Spinach last night. Medications and supplements reviewed No changes in medications or supplements, Denies any signs and symptoms of bleeding or bruising or clotting. Bleeding, bruising, clotting discussed Nutritional guidance given to continue to increase her greens intake. Pt will have greens 3X this week Dose: decreased by 2.5mg this week. Pt has 6 more days on the antibiotic. F/U INR: 1 week Patient verbalizes understanding of instructions given Anti-Coag Initial Assessment Social Hx Patient Tobacco Use Status: Former Tobacco user Tobacco use type: Cigarette Smoking packs per day: 0.5 alcohol intake: never Alcohol intake frequency: does not drink Cardiovascular Hx: HTN (hx with [facility] cardiology Dr Cardona- no real dx- question of some kind condition - to have new cardiology in near future ) and Other (has feelings that she may pass out at times and has fallen 4 times and not sure why) Lung Disease HX: Asthma (age [age] years old) and DVT/PE (right calf, 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 Illness/Depression: Yes (Anxiety/depression on meds ) Coding Level of Care Code Est Patient Level 1 Diagnoses Current use of anticoagulant therapy Z79.01 Results AMB INR Fingerstick AMB INR Fingerstick 3.0 Last Edit by Violette Henson RN on 12/14/24 10:09 interface delay Assessment & Plan Assessment & Plan (1) Current use of anticoagulant therapy: Code(s): Z79.01 - alf (current) use of anticoagulants Category: Medical
== END 2024-12-14 10:17 | disposition home or self-care (01) ==
LOC: HO.ACS 09:55
PROVIDERS: PCP Internal Medicine; Visit Provider Internal Medicine Medical Oncology
DX: Z79.01 Long term (current) use of anticoagulants (principal)

== ENCOUNTER → 2024-12-14 09:55 | Outpatient (BNVA) | payer MEDICAID, SELFPAY | PROVIDERS: PCP Internal Medicine; Visit Provider Internal Medicine Medical Oncology | DX: D68.59 Other primary thrombophilia (principal); Z79.01 Long term (current) use of anticoagulants; Z51.81 Encounter for therapeutic drug level monitoring | CPT/HCPCS: 85610; 99211 ==

== ENCOUNTER 2024-12-16 10:39 | Outpatient (AMB) | payer MEDICAID, SELFPAY ==
[2024-12-16 10:41] VITALS: BMI 41.9
--- NOTE | 2024-12-16 10:41 | A.OFFVIS_ITS ---
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: No Accompanied by: Self / Same As Patient Allergies metformin Adverse Reaction (Severe, Verified 12/16/24 10:41) Diarrhea aspirin Adverse Reaction (Intermediate, Verified 12/16/24 10:41) Gastrointestinal Upset Medication List - Last Reconciled 12/16/24 by Jayce Myers MD albuterol sulfate 90 mcg/actuation 2 puffs inhalation Q4-6H PRN amitriptyline 25 - 50 mg PO BEDTIME amlodipine 5 mg PO DAILY [CBD topical PRN] dulaglutide (Trulicity) mg subcut QWEEK empagliflozin (Jardiance) 25 mg PO DAILY fesoterodine ER 4 mg PO DAILY 30 days gabapentin 300 mg PO BID insulin glargine (Lantus Solostar U-100 Insulin) 50 units subcutaneously am and bedtime; insulin lispro (Humalog KwikPen (U-100) Insulin) 24 units subcut TID lancets (FreeStyle Lancets) As directed lisinopril 40 mg PO DAILY loperamide 2 mg PO DAILY PRN lorazepam 0.5 - 1 mg PO DAILY PRN melatonin 3 mg PO BEDTIME metoprolol succinate ER 100 mg PO DAILY mometasone-formoterol 200-5 mcg/actuation (Dulera) 2 puffs inhalation BID naloxone 4 mg/actuation intranasal omeprazole 40 mg PO DAILY phenazopyridine (Pyridium) 100 mg PO BID rosuvastatin 40 mg PO BEDTIME tramadol 50 mg PO Q12H PRN trazodone 100 mg PO BEDTIME PRN umeclidinium 62.5 mcg/actuation (Incruse Ellipta) 1 inh inhalation DAILY venlafaxine ER 150 mg PO QAM venlafaxine ER 37.5 mg PO DAILY warfarin 5 mg See Protocol PO DAILY warfarin 2.5 mg See Protocol PO QWEEK HPI HPI cyst of scalp: Details: She is here for another scalp mass. She says that she wants this removed as well. This has right next to where she recently had a scalp cysts removed. [facility] Medical History Lipoma of scalp Scalp cyst Depression Elevated cholesterol Atrial dysrhythmia Asthma PERRY (obstructive sleep apnea) History of CVA (cerebrovascular accident) (~2004) Hx pulmonary embolism Factor V Leiden mutation Scalp irritation Scalp lesion DVT (deep venous thrombosis) Hypercoagulable state Hypertension Diabetes mellitus Surgical History Hx of surgical procedure History of endometrial ablation Hx of lumbosacral spine surgery (11/09/22) History of inferior vena caval filter placement (~1978) Hx of right knee surgery History of surgical removal of lesion (~08/27/22) History of excision of lesion History of rotator cuff surgery History of cholecystectomy Family History Maternal Grandmother Breast cancer Sister Breast cancer Social History Household Members: Significant Other Housing: Apartment (3 steps on first floor ) Are you a primary animal care supervisor to a significant other at home: No Do you presently have visiting nurse or other home services: No Alcohol intake: never Patient Tobacco Use Status: Former Tobacco user Tobacco use type: Cigarette Cigarette Packs Per Day: 0.5 Years Smoked: 1.5 Substance Use Type: Marijuana Current occupational status: disabled Current occupation: disability Current occupational exposures/hazards: No Review of Systems Const Denies chills and Denies fever(s) Card Denies chest pain, Denies dyspnea and Denies dyspnea on exertion Resp Denies cough, Denies dyspnea and Denies dyspnea on exertion GI Denies hematochezia and Denies change in bowel habits Denies hematuria Musc Denies back pain and Denies limited range of motion Neuro Denies focal weakness and Denies convulsions Psych Denies depression and Denies mood swings Physical Exam Vital Signs: BMI result Body Mass Index 41.9 Const General: comfortable and no acute distress Orientation/consciousness: patient oriented x3 HEENT Other: Cystic induration on the scalp, on the left parietal area, about 7 mm in diameter Neck Neck: Yes no lymphadenopathy Resp Auscultation: clear to auscultation bilaterally Cardio Rhythm: regular rhythm GI Palpation (GI): Soft to palpation, nontender and no guarding Neuro General: patient oriented x3 Office Procedures Excision Details: She was in reclining position. The area of the cyst on the left parietal region was prepped and draped. Lidocaine 1% was used for local anesthesia. I made an elliptical incision of the skin surrounding this this cystic induration with a blade 15. And this carried down through the full-thickness of the skin and subcutaneous fat to excise this entire indurated area. This measured about 7 mm in diameter. I closed the incision with full-thickness nylon 3-0 simple sutures. Bacitracin dressings were applied and the procedure was completed. She tolerated procedure well. There were no immediate complications. There was minimal blood loss. [id number] scalp/neck/hands/feet/genitalia 0.6cm-1cm Procedure code (CPT) selection complete Assessment & Plan Assessment & Plan (1) Scalp cyst: Code(s): L72.9 - Follicular cyst of the skin and subcutaneous tissue, unspecified Category: Medical Plan I reviewed the technique of excision under local anesthesia. I explained the risks including but not limited to bleeding and infections, as well as the benefits and alternatives. Excision was done in the office. She was given wound care instructions. I will see her for removal sutures in about 2 weeks. Coding Level of Care Code Procedure Only Diagnoses Scalp cyst L72.9 CPT Codes Scalp/Neck/Hands/Feet/Genetalia - CPT: 75964-[id number] scalp/neck/hands/feet/genitalia 0.6cm-1cm ([id number])
== END 2024-12-16 11:00 | disposition home or self-care (01) ==
LOC: HO.HGS 10:39
PROVIDERS: PCP Internal Medicine; Referring Provider Internal Medicine; Visit Provider Surgery
DX: L72.9 Follicular cyst of the skin and subcutaneous tissue, unspecified (principal)
CPT/HCPCS: 11421

== ENCOUNTER 2024-12-16 10:39 | Outpatient (REF) | payer MEDICAID, SELFPAY | END 2024-12-16 10:40 | disposition home or self-care (01) | LOC: HO.LNP 10:39 | PROVIDERS: PCP Internal Medicine; Visit Provider Surgery | DX: L72.9 Follicular cyst of the skin and subcutaneous tissue, unspecified (principal) | CPT/HCPCS: 11421; 88304 ==

== ENCOUNTER 2024-12-18 07:52 | Outpatient (AMB) | payer MEDICAID, SELFPAY ==
--- NOTE | 2024-12-18 08:01 | MHC.OFFVIS ---
Vital Signs 12/18/24 08:10 Height 5 ft 2 in Weight 220 lb BMI 40.2 BP 112/52 L Blood Pressure Location Lt brachial Position Sitting Pulse 87 Intake Visit Reasons: [place] screening r/s 09/09/24 Intake Note: Patient new consult for 3rd pre Colonoscopy screening Patient cc: swallowing difficulties on and off. Denies any other GI issues. [employer] Consultant Required: No Accompanied by: Self / Same As Patient Allergies metformin Adverse Reaction (Severe, Verified 12/18/24 08:00) Diarrhea aspirin Adverse Reaction (Intermediate, Verified 12/18/24 08:00) Gastrointestinal Upset Medication List - Last Reconciled 12/18/24 by Keara Whitlock CNP albuterol sulfate 90 mcg/actuation 2 puffs inhalation Q4-6H PRN amitriptyline 25 - 50 mg PO BEDTIME amlodipine 5 mg PO DAILY [CBD topical PRN] dulaglutide (Trulicity) mg subcut QWEEK empagliflozin (Jardiance) 25 mg PO DAILY fesoterodine ER 4 mg PO DAILY 30 days gabapentin 300 mg PO BID insulin glargine (Lantus Solostar U-100 Insulin) 50 units subcutaneously 2 times a day; insulin lispro (Humalog KwikPen (U-100) Insulin) 24 units subcut TID lancets (FreeStyle Lancets) As directed lisinopril 40 mg PO DAILY loperamide 2 mg PO DAILY PRN lorazepam 0.5 - 1 mg PO DAILY PRN melatonin 3 mg PO BEDTIME metoprolol succinate ER 100 mg PO DAILY mometasone-formoterol 200-5 mcg/actuation (Dulera) 2 puffs inhalation BID naloxone 4 mg/actuation intranasal omeprazole 40 mg PO DAILY phenazopyridine (Pyridium) 100 mg PO BID rosuvastatin 40 mg PO BEDTIME trazodone 100 mg PO BEDTIME PRN umeclidinium 62.5 mcg/actuation (Incruse Ellipta) 1 inh inhalation DAILY venlafaxine ER 150 mg PO QAM venlafaxine ER 37.5 mg PO DAILY warfarin 5 mg See Protocol PO DAILY warfarin 2.5 mg See Protocol PO QWEEK HPI HPI [place] screening r/s 09/09/24: Details: Patient is a 63-year-old female with PMH of depression, asthma, PERRY, hypertension, diabetes and history of PE/DVT on warfarin. Referred for pre colonoscopy screening. Charo reports a history of infrequent large bowel movements, typically once weekly, described as Type 4 large caliber with minimal associated discomfort. Occasionally, passes stool unknowingly while urinating, but denies true sensation of constipation and has a lifelong pattern of infrequent stools. Denies diarrhea or changes in appetite. Over the past 2?3 months, endorses new difficulty swallowing solids, requiring cutting food into very small pieces and thorough chewing, particularly after a recent severe urinary tract infection involving the kidneys treated with antibiotics, which was associated with residual low back pain but no ongoing urinary symptoms. No triggers or relieving factors identified for dysphagia; no changes in dentition or diet during this time. Reports new onset of increased gas and bloating, primarily nocturnal. Weight has fluctuated minimally by patient report; recent weight discrepancies attributed to different scales. History of asthma, type 2 DM managed with oral agents and insulin, hypertension, PERRY (undergoing workup), and prior long-standing dental changes with use of upper and lower dentures/partials. Notable for Coumadin (warfarin) use, with prior Lovenox bridging before procedures. Patient denies: fever/chills, n/v, appetite changes, pyrosis, regurgitation, unintentional wt loss, ab pain, melena/hematochezia or other GI complaints Social hx: -denies ETOH use -rare marijuana (edible, prn back pain, ~q3?5mo), denies other recreational drug use -former smoker, cessation 30 years ago - family hx as below -denies personal hx of CA -tolerated anesthesia in the past without difficulty. [facility] Medical History (Updated 12/18/24 @ 08:49 by Keara Whitlock CNP) Constipation Flatus Colon cancer screening Dysphagia Lipoma of scalp Scalp cyst Depression Elevated cholesterol Atrial dysrhythmia Asthma PERRY (obstructive sleep apnea) History of CVA (cerebrovascular accident) (~2004) Hx pulmonary embolism Factor V Leiden mutation Scalp irritation Scalp lesion DVT (deep venous thrombosis) Hypercoagulable state Hypertension Diabetes mellitus Surgical History Hx of surgical procedure History of endometrial ablation Hx of lumbosacral spine surgery (11/09/22) History of inferior vena caval filter placement (~1978) Hx of right knee surgery History of surgical removal of lesion (~08/27/22) History of excision of lesion History of rotator cuff surgery History of cholecystectomy Family History Maternal Grandmother Breast cancer Sister Breast cancer Social History Household Members: Significant Other Housing: Apartment (3 steps on first floor ) Are you a primary career portals teacher to a significant other at home: No Do you presently have visiting nurse or other home services: No Alcohol intake: never Patient Tobacco Use Status: Former Tobacco user Tobacco use type: Cigarette Cigarette Packs Per Day: 0.5 Years Smoked: 1.5 Substance Use Type: Marijuana Current occupational status: disabled Current occupation: disability Current occupational exposures/hazards: No Review of Systems Const Reports as per HPI ENT Reports as per HPI Card Reports as per HPI Resp Reports as per HPI GI Reports as per HPI Reports as per HPI Physical Exam Const General: healthy appearing, no acute distress and well developed Nutritional Appearance: average body habitus Orientation/consciousness: patient oriented x3 HEENT Head: Yes normal to inspection, Yes normocephalic and Yes atraumatic Face and sinus: Yes normal facial exam Mouth: Normal oral and palatal mucosa present Teeth and gingiva: edentulous (upper) Throat: Yes posterior oropharynx normal Eyes General: appearance normal, both eyes and all related structures Neck Neck: Yes normal visual inspection Lymphatic: no lymphadenopathy noted Resp Effort & Inspection: normal respiratory effort, able to speak in complete sentences, no tracheal deviation and symmetric chest movement Cardio Jugular venous distension: no JVD GI Inspection: Yes normal to inspection, No distended, Yes obesity and Yes striae Palpation (GI): Soft to palpation, not firm, nontender and No hepatosplenomegaly present Auscultation: normoactive bowel sounds Neuro General: patient oriented x3 Gait exam (Neuro): Normal gait present Psych Appearance: grossly normal Mental Status: mental status grossly normal Speech and movement: Normal speech and movement present Affect: normal affect Attitude: cooperative Thought process: Normal thought process present Thought content: Normal thought content present Insight: Good insight present (Psych) Judgement: Good judgement present (Psych) Assessment & Plan Assessment & Plan (1) Colon cancer screening: Code(s): Z12.11 - Encounter for screening for malignant neoplasm of colon Category: Medical Plan: Hx of polyps >16 yrs ago, due for repeat screening per guidelines. Outside records unavailable at time of visit. Medications: -prescriptions for laxative tablets and PEG sent to pharmacy; instructions on clear liquid diet given. -Understands diabetes medications and warfarin will need to be held days prior to procedure. Nurse to review med holds per protocol.. Patient educated on scheduling process, procedure preparation, including avoiding certain foods and ensuring clear liquid intake Advised on necessity for ride post-procedure due to sedation. (2) Dysphagia: Code(s): R13.10 - Dysphagia, unspecified Category: Medical Qualifiers: Dysphagia type: unspecified Qualified Code(s): R13.10 - Dysphagia, unspecified Plan: New difficulty with solids (noted post-UTI), no liquid dysphagia; risk factors include age/dentition; lacks alarming features but warrants evaluation. DDX: Esophageal stricture, mass, or motility disorder contributing to dysphagia VS Hiatal hernia VS Contribution of dentition/dentures VS Medication effect on motility. Additional Testing: Order barium swallow study. Plan upper endoscopy (EGD) at time of colonoscopy for direct visualization. Medication Management: N/A at present. Lifestyle Recommendations: Recommend small, well-chewed, moist/soft foods; avoid tough/dry foods; continue to monitor for progression or wt loss. Follow-Up: Arrange GI clinic phone f/u if study findings significant; otherwise review at post-endoscopy f/u (3) Flatus: Code(s): R14.3 - Flatulence Category: Medical Plan: Recent symptom, likely related to dietary pattern and bowel habit. Additional Testing: None unless worsens or associated with other sx. Lifestyle Recommendations: Dietary modification per gas/bloating handout( low FODMAP); optimize fiber to balance regularity versus bloating. Follow-Up: PRN if unresponsive to dietary advice or if worsens. (4) Constipation: Code(s): K59.00 - Constipation, unspecified Category: Medical Qualifiers: Constipation type: unspecified constipation type Qualified Code(s): K59.00 - Constipation, unspecified Plan: Lifelong pattern of infrequent, large BM, confirmed by GI review. Additional Testing: None at this visit unless symptoms change. Medication Management: Colonoscopy prep includes GoLytely, lax tabs; pt advised to increase fiber as tolerated (with handout), maintain water intake, ambulate as able. Lifestyle Recommendations: Increase dietary fiber, encourage mobility w/in functional limits. Refer to gas/bloating dietary handout to identify trigger foods. Follow-Up: Reassess with colonoscopy findings and as symptoms evolve. Plan Follow-up after endoscopy or sooner as needed Time: I spent a total of 35 minutes on the date of encounter which includes: Preparing to see the patient (reviewed previous documentation, test results and medical history) Performing a medically appropriate exam and/or evaluation Ordering medications, tests, and procedures Documenting clinical information in the health record Orders: Orders FL barium swallow Today R13.10 - Dysphagia, unspecified, Z12.11 - Encounter for screening for malignant neoplasm of colon Referrals GI Procedure Notification R13.10 - Dysphagia, unspecified, Z12.11 - Encounter for screening for malignant neoplasm of colon Medications: New peg 3350-electrolytes 236-22.74-6.74 -5.86 gram until fecal effluent is clear 240 mL PO Q10M 4,000 mL 0RF bisacodyl Take per colonoscopy instructions 5 mg PO ONCE 4 tabs 0RF simethicone (Gas Relief (simethicone)) per colonoscopy prep instructions 125 mg PO ONCE 4 caps 0RF abdominal distention Coding Level of Care Code New Pt New Pt Level 3 (27888) Patient Type New Diagnoses Colon cancer screening Z12.11 Dysphagia, unspecified type R13.10 Dysphagia type: unspecified Flatus R14.3 Constipation, unspecified constipation type K59.00 Constipation type: unspecified constipation type
[2024-12-18 08:10] VITALS: BP 112/52; PULSE 87; BMI 40.2
== END 2024-12-18 08:51 | disposition home or self-care (01) ==
LOC: HO.HGI 07:53
PROVIDERS: PCP Internal Medicine; Visit Provider Nurse Practitioner Family
DX: Z01.818 Encounter for other preprocedural examination (principal); Z12.11 Encounter for screening for malignant neoplasm of colon; R13.10 Dysphagia, unspecified; R14.3 Flatulence; K59.00 Constipation, unspecified
CPT/HCPCS: 99203

== ENCOUNTER → 2024-12-18 07:52 | Outpatient (BNVA) | payer MEDICAID, SELFPAY | PROVIDERS: PCP Internal Medicine; Visit Provider Nurse Practitioner Family | DX: Z01.818 Encounter for other preprocedural examination (principal); R13.10 Dysphagia, unspecified; K59.00 Constipation, unspecified | CPT/HCPCS: 99212 ==

== ENCOUNTER 2024-12-25 08:12 | Outpatient (AMB) | payer MEDICAID, SELFPAY ==
[2024-12-25 08:39] LABS: Prothrombin Time Whole Bld POC 58.1 sec (11.1-13.5); ~PT, ~INR - Anti Coag Clinic 4.8 (0.9-1.1)
--- NOTE | 2024-12-25 08:45 | MHC.OFFVISCO ---
Intake Intake Visit Reasons: Anticoagulation Allergies metformin Adverse Reaction (Severe, Verified 12/25/24 08:26) Diarrhea aspirin Adverse Reaction (Intermediate, Verified 12/25/24 08:26) Gastrointestinal Upset Medication List - Last Reconciled 12/25/24 by Violette Henson, RN albuterol sulfate 90 mcg/actuation 2 puffs inhalation Q4-6H PRN amitriptyline 25 - 50 mg PO BEDTIME amlodipine 5 mg PO DAILY bisacodyl 5 mg PO ONCE [CBD topical PRN] dulaglutide (Trulicity) mg subcut QWEEK empagliflozin (Jardiance) 25 mg PO DAILY fesoterodine ER 4 mg PO DAILY 30 days gabapentin 300 mg PO BID insulin glargine (Lantus Solostar U-100 Insulin) 50 units subcutaneously 2 times a day; insulin lispro (Humalog KwikPen (U-100) Insulin) 24 units subcut TID lancets (FreeStyle Lancets) As directed lisinopril 40 mg PO DAILY loperamide 2 mg PO DAILY PRN lorazepam 0.5 - 1 mg PO DAILY PRN melatonin 3 mg PO BEDTIME metoprolol succinate ER 100 mg PO DAILY mometasone-formoterol 200-5 mcg/actuation (Dulera) 2 puffs inhalation BID naloxone 4 mg/actuation intranasal omeprazole 40 mg PO DAILY peg 3350-electrolytes 236-22.74-6.74 -5.86 gram 240 mL PO Q10M phenazopyridine (Pyridium) 100 mg PO BID rosuvastatin 40 mg PO BEDTIME simethicone (Gas Relief (simethicone)) 125 mg PO ONCE trazodone 100 mg PO BEDTIME PRN umeclidinium 62.5 mcg/actuation (Incruse Ellipta) 1 inh inhalation DAILY venlafaxine ER 150 mg PO QAM venlafaxine ER 37.5 mg PO DAILY warfarin 5 mg See Protocol PO DAILY warfarin 2.5 mg See Protocol PO QWEEK Nursing Note INR: 4.8 out of therapeutic range of 2-3 Medications and supplements reviewed Patient status: c/o back pain, s/p UTI with antibiotics now complete Medications or supplements: no changes Diet: usual diet for pt Denies any signs and symptoms of bleeding or clotting or unusual bruising Bleeding, bruising, clotting discussed Nutritional guidance given: to have a serving of greens today. Pt states she will have broccoli today. Dose: hold today's dose of 5mg then 5mg X 6 days and 2.5mg X 1 day (Sun) F/U INR Date: 12/30/24?? Patient verbalizing understanding of instructions given. Anti-Coag Initial Assessment Social Hx Patient Tobacco Use Status: Former Tobacco user Tobacco use type: Cigarette Smoking packs per day: 0.5 alcohol intake: never Alcohol intake frequency: does not drink Cardiovascular Hx: HTN (hx with [facility] cardiology Dr Cardona- no real dx- question of some kind condition - to have new cardiology in near future ) and Other (has feelings that she may pass out at times and has fallen 4 times and not sure why) Lung Disease HX: Asthma (age [age] years old) and DVT/PE (right calf, 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
== END 2024-12-25 08:50 | disposition home or self-care (01) ==
LOC: HO.ACS 08:12
PROVIDERS: PCP Internal Medicine; Visit Provider Internal Medicine Medical Oncology
DX: Z79.01 Long term (current) use of anticoagulants (principal)

== ENCOUNTER → 2024-12-25 08:12 | Outpatient (BNVA) | payer MEDICAID, SELFPAY | PROVIDERS: PCP Internal Medicine; Visit Provider Internal Medicine Medical Oncology | DX: D68.59 Other primary thrombophilia (principal); Z79.01 Long term (current) use of anticoagulants; Z51.81 Encounter for therapeutic drug level monitoring | CPT/HCPCS: 85610; 99211 ==

== ENCOUNTER 2024-12-30 08:15 | Outpatient (AMB) | payer MEDICAID, SELFPAY ==
--- NOTE | 2024-12-30 08:26 | MHC.OFFVISCO ---
Intake Intake Visit Reasons: Anticoagulation Allergies metformin Adverse Reaction (Severe, Verified 12/30/24 08:56) Diarrhea aspirin Adverse Reaction (Intermediate, Verified 12/30/24 08:56) Gastrointestinal Upset Medication List - Last Reconciled 12/30/24 by Tabatha Mack RN albuterol sulfate 90 mcg/actuation 2 puffs inhalation Q4-6H PRN amitriptyline 25 - 50 mg PO BEDTIME amlodipine 5 mg PO DAILY bisacodyl 5 mg PO ONCE [CBD topical PRN] dulaglutide (Trulicity) mg subcut QWEEK empagliflozin (Jardiance) 25 mg PO DAILY fesoterodine ER 4 mg PO DAILY 30 days gabapentin 300 mg PO BID insulin glargine (Lantus Solostar U-100 Insulin) 50 units subcutaneously 2 times a day; insulin lispro (Humalog KwikPen (U-100) Insulin) 24 units subcut TID lancets (FreeStyle Lancets) As directed lisinopril 40 mg PO DAILY loperamide 2 mg PO DAILY PRN lorazepam 0.5 - 1 mg PO DAILY PRN melatonin 3 mg PO BEDTIME metoprolol succinate ER 100 mg PO DAILY mometasone-formoterol 200-5 mcg/actuation (Dulera) 2 puffs inhalation BID naloxone 4 mg/actuation intranasal omeprazole 40 mg PO DAILY peg 3350-electrolytes 236-22.74-6.74 -5.86 gram 240 mL PO Q10M phenazopyridine (Pyridium) 100 mg PO BID rosuvastatin 40 mg PO BEDTIME simethicone (Gas Relief (simethicone)) 125 mg PO ONCE trazodone 100 mg PO BEDTIME PRN umeclidinium 62.5 mcg/actuation (Incruse Ellipta) 1 inh inhalation DAILY venlafaxine ER 150 mg PO QAM venlafaxine ER 37.5 mg PO DAILY warfarin 5 mg See Protocol PO DAILY warfarin 2.5 mg See Protocol PO QWEEK Nursing Note INR 4.3-? out of therapeutic range 2-3 Medications and supplements reviewed Patient status: suture removal today, cyst removed on top of head Medications or supplements: no changes, taking tylenol for back pain, enc to increase greens with increased tylenol usage Diet: same Denies any signs and symptoms of bleeding or clotting or unusual bruising Bleeding, bruising, clotting discussed Nutritional guidance given: eat greens to lower inr today and tomm Dose: hold warfarin today then cont 5mg x 6, 2.5mg x 1 F/U INR Date : 1 week?? Patient verbalizing understanding of instructions given. Anti-Coag Initial Assessment Social Hx Patient Tobacco Use Status: Former Tobacco user Tobacco use type: Cigarette Smoking packs per day: 0.5 alcohol intake: never Alcohol intake frequency: does not drink Cardiovascular Hx: HTN and Other Lung Disease HX: Asthma and DVT/PE Endocrine Hx: Diabetes Musculoskeletal Hx: Arthritis and Other Blood Disorder Hx: Hyperlipidemia and Other Neurological Hx: Stroke/TIA Cancer HX: No (NO HX FOR PT - SISTER HX OF BREAST CA AGE 52- LIVING, GRANDMOTHER BREAST CA) Psych. Illness/Depression: Yes (Anxiety/depression on meds ) Coding Level of Care Code Est Patient Level 1 Diagnoses Current use of anticoagulant therapy Z79.01 Assessment & Plan Assessment & Plan (1) Current use of anticoagulant therapy: Code(s): Z79.01 - chicken tender (current) use of anticoagulants Category: Medical
[2024-12-30 08:27] LABS: Prothrombin Time Whole Bld POC 51.1 sec (11.1-13.5); ~PT, ~INR - Anti Coag Clinic 4.3 (0.9-1.1)
== END 2024-12-30 09:08 | disposition home or self-care (01) ==
LOC: HO.ACS 08:15
PROVIDERS: PCP Internal Medicine; Visit Provider Internal Medicine Medical Oncology
DX: Z79.01 Long term (current) use of anticoagulants (principal)

== ENCOUNTER → 2024-12-30 08:15 | Outpatient (BNVA) | payer MEDICAID, SELFPAY | PROVIDERS: PCP Internal Medicine; Visit Provider Internal Medicine Medical Oncology | DX: Z48.02 Encounter for removal of sutures (principal); L72.11 Pilar cyst; D68.59 Other primary thrombophilia; Z51.81 Encounter for therapeutic drug level monitoring; Z79.01 Long term (current) use of anticoagulants | CPT/HCPCS: 85610; 99211; 99212 ==

== ENCOUNTER 2024-12-30 08:35 | Outpatient (AMB) | payer MEDICAID, SELFPAY ==
[2024-12-30 08:55] VITALS: BP 112/53; PULSE 92; BMI 40.4
--- NOTE | 2024-12-30 08:55 | MHC.OFFVIS ---
Vital Signs 12/30/24 08:55 Height 5 ft 2 in Weight 221 lb BMI 40.4 BP 112/53 L Blood Pressure Location Rt brachial Position Sitting Pulse 92 Intake Visit Reasons: p/o scalp exc~suture removal Intake Note: Patient here s/p cyst on scalp excision. Patient c/o: no concerns. # sutures removed without incident. Site healing well. No redness, inflammation, oozing noted. WLE (): 12-16-2024 Signal Fitter Required: No Accompanied by: Self / Same As Patient Allergies metformin Adverse Reaction (Severe, Verified 12/30/24 08:56) Diarrhea aspirin Adverse Reaction (Intermediate, Verified 12/30/24 08:56) Gastrointestinal Upset HPI HPI p/o scalp exc~suture removal: Details: Doing well. Denies pain, bleeding, discharge from excision site. Denies fevers at home. No other complaints [facility] Medical History (Updated 12/30/24 @ 09:24 by Oren Tong PA-C) Constipation Flatus Colon cancer screening Dysphagia Lipoma of scalp Scalp cyst Depression Elevated cholesterol Atrial dysrhythmia Asthma PERRY (obstructive sleep apnea) History of CVA (cerebrovascular accident) (~2004) Hx pulmonary embolism Factor V Leiden mutation Scalp irritation Scalp lesion DVT (deep venous thrombosis) Hypercoagulable state Hypertension Diabetes mellitus Surgical History (Updated 12/30/24 @ 08:35 by JAYNE Ferrara) Hx of surgical procedure (12/16/24) Hx of surgical procedure History of endometrial ablation Hx of lumbosacral spine surgery (11/09/22) History of inferior vena caval filter placement (~1978) Hx of right knee surgery History of surgical removal of lesion (~08/27/22) History of excision of lesion History of rotator cuff surgery History of cholecystectomy Family History Maternal Grandmother Breast cancer Sister Breast cancer Social History Household Members: Significant Other Housing: Apartment Are you a primary career specialist to a significant other at home: No Do you presently have visiting nurse or other home services: No Alcohol intake: never Patient Tobacco Use Status: Former Tobacco user Tobacco use type: Cigarette Cigarette Packs Per Day: 0.5 Years Smoked: 1.5 Substance Use Type: Marijuana Current occupational status: disabled Current occupation: disability Current occupational exposures/hazards: No Review of Systems Const All systems reviewed & are unremarkable except as noted in HPI and below Physical Exam Vital Signs: Last Vital Signs Pulse 92 12/30/24 08:55 BP 112/53 L 12/30/24 08:55 BMI result Body Mass Index 40.4 Const General: comfortable and no acute distress Orientation/consciousness: patient oriented x3 HEENT Head images:  1. Pilar cyst excision site: Incision site clean dry intact, [address] Removed in office today, no fluid collection, nontender, no discharge Neuro General: patient oriented x3 Assessment & Plan Assessment & Plan (1) Pilar cyst of scalp: Comment: S/p excision 12/16/2024 Dr. Myers Code(s): L72.11 - Pilar cyst Category: Medical Plan 64-year-old female s/p Pilar cyst excision on scalp on 12/16/[address] Myers returning for wound check, suture removal. Overall doing well, has no complaints. Denies pain, bleeding, discharge. Denies fevers at home. On exam the excision site appears to be healing well, 3 sutures were removed in office without complication. No concern for infection at the surgical site. We discussed pathology results as follows, Pilar cyst. Patient was given copy of these results. She has no other questions or concerns. At this point no longer requiring follow up, can return as needed with any future questions. Coding Level of Care Code Est Pt Level 3 (33510) Diagnoses Pilar cyst of scalp L72.11
== END 2024-12-30 08:57 | disposition home or self-care (01) ==
LOC: HO.HGS 08:35
PROVIDERS: PCP Internal Medicine
DX: L72.11 Pilar cyst (principal)
CPT/HCPCS: 99213

== ENCOUNTER 2025-01-04 08:36 | Outpatient (AMB) | payer MEDICAID, SELFPAY ==
[2025-01-04 08:59] LABS: Prothrombin Time Whole Bld POC 41.3 sec (11.1-13.5); ~PT, ~INR - Anti Coag Clinic 3.4 (0.9-1.1)
--- NOTE | 2025-01-04 09:05 | MHC.OFFVISCO ---
Intake Intake Visit Reasons: Anticoagulation Allergies metformin Adverse Reaction (Severe, Verified 01/04/25 08:54) Diarrhea aspirin Adverse Reaction (Intermediate, Verified 01/04/25 08:54) Gastrointestinal Upset Medication List - Last Reconciled 01/04/25 by Violette Henson, RN albuterol sulfate 90 mcg/actuation 2 puffs inhalation Q4-6H PRN amitriptyline 25 - 50 mg PO BEDTIME amlodipine 5 mg PO DAILY bisacodyl 5 mg PO ONCE [CBD topical PRN] dulaglutide (Trulicity) mg subcut QWEEK empagliflozin (Jardiance) 25 mg PO DAILY fesoterodine ER 4 mg PO DAILY 30 days gabapentin 300 mg PO BID insulin glargine (Lantus Solostar U-100 Insulin) 50 units subcutaneously 2 times a day; insulin lispro (Humalog KwikPen (U-100) Insulin) 24 units subcut TID lancets (FreeStyle Lancets) As directed lisinopril 40 mg PO DAILY loperamide 2 mg PO DAILY PRN lorazepam 0.5 - 1 mg PO DAILY PRN melatonin 3 mg PO BEDTIME metoprolol succinate ER 100 mg PO DAILY mometasone-formoterol 200-5 mcg/actuation (Dulera) 2 puffs inhalation BID naloxone 4 mg/actuation intranasal omeprazole 40 mg PO DAILY peg 3350-electrolytes 236-22.74-6.74 -5.86 gram 240 mL PO Q10M phenazopyridine (Pyridium) 100 mg PO BID rosuvastatin 40 mg PO BEDTIME simethicone (Gas Relief (simethicone)) 125 mg PO ONCE trazodone 100 mg PO BEDTIME PRN umeclidinium 62.5 mcg/actuation (Incruse Ellipta) 1 inh inhalation DAILY venlafaxine ER 150 mg PO QAM venlafaxine ER 37.5 mg PO DAILY warfarin 5 mg See Protocol PO DAILY warfarin 2.5 mg See Protocol PO QWEEK Nursing Note INR: 3.4 out of therapeutic range of 2-3 Medications and supplements reviewed Patient status: c/o back pain Medications or supplements: no changes Diet: usual diet for pt Denies any signs and symptoms of bleeding or clotting or unusual bruising Bleeding, bruising, clotting discussed Nutritional guidance given: to have a serving of greens today Dose: weekly dose decreased to 5mg X 5 days and 2.5mg X 2 days (Sat & Wed) F/U INR Date: 2 weeks?? Patient verbalizing understanding of instructions given. Anti-Coag Initial Assessment Social Hx Patient Tobacco Use Status: Former Tobacco user Tobacco use type: Cigarette Smoking packs per day: 0.5 alcohol intake: never Alcohol intake frequency: does not drink Cardiovascular Hx: HTN and Other Lung Disease HX: Asthma and DVT/PE Endocrine Hx: Diabetes Musculoskeletal Hx: Arthritis and Other Blood Disorder Hx: Hyperlipidemia and Other Neurological Hx: Stroke/TIA Cancer HX: No (NO HX FOR PT - SISTER HX OF BREAST CA AGE 52- LIVING, GRANDMOTHER BREAST CA) Psych. Illness/Depression: Yes (Anxiety/depression on meds ) Coding Level of Care Code Est Patient Level 1 Diagnoses Current use of anticoagulant therapy Z79.01 Results AMB INR Fingerstick AMB INR Fingerstick 3.4 Last Edit by Violette Henson RN on 01/04/25 08:59 interface delay Assessment & Plan Assessment & Plan (1) Current use of anticoagulant therapy: Code(s): Z79.01 - detention (current) use of anticoagulants Category: Medical
== END 2025-01-04 09:07 | disposition home or self-care (01) ==
LOC: HO.ACS 08:36
PROVIDERS: PCP Internal Medicine; Visit Provider Internal Medicine Medical Oncology
DX: Z79.01 Long term (current) use of anticoagulants (principal)

== ENCOUNTER → 2025-01-04 08:36 | Outpatient (BNVA) | payer MEDICAID, SELFPAY | PROVIDERS: PCP Internal Medicine; Visit Provider Internal Medicine Medical Oncology | DX: M25.561 Pain in right knee (principal); Z79.01 Long term (current) use of anticoagulants; M17.0 Bilateral primary osteoarthritis of knee; J45.909 Unspecified asthma, uncomplicated; Z86.711 Personal history of pulmonary embolism | CPT/HCPCS: 85610; 99202; 99211 ==

== ENCOUNTER 2025-01-04 09:13 | Outpatient (AMB) | payer MEDICAID, SELFPAY ==
--- NOTE | 2025-01-04 09:49 | MHC.OFFVIS ---
Vital Signs 01/04/25 09:50 Height 5 ft 2 in Weight 221 lb BMI 40.4 BP 130/60 Blood Pressure Location Lt brachial Position Sitting Respiration 16 Pulse 86 Pulse Source Pulse Oximeter Pulse Oximetry (%) 98 Oxygen Delivery Method Room Air Intake Visit Reasons: BILATERAL OSTEOARTHRITIS OF KNEES Spring Floor Service Worker Required: No Allergies metformin Adverse Reaction (Severe, Verified 01/04/25 09:52) Diarrhea aspirin Adverse Reaction (Intermediate, Verified 01/04/25 09:52) Gastrointestinal Upset Medication List - Last Reconciled 01/04/25 by Quiana Murdock LPN albuterol sulfate 90 mcg/actuation 2 puffs inhalation Q4-6H PRN amitriptyline 25 - 50 mg PO BEDTIME amlodipine 5 mg PO DAILY bisacodyl 5 mg PO ONCE [CBD topical PRN] dulaglutide (Trulicity) mg subcut QWEEK empagliflozin (Jardiance) 25 mg PO DAILY fesoterodine ER 4 mg PO DAILY 30 days gabapentin 300 mg PO BID insulin glargine (Lantus Solostar U-100 Insulin) 50 units subcutaneously 2 times a day; insulin lispro (Humalog KwikPen (U-100) Insulin) 24 units subcut TID lancets (FreeStyle Lancets) As directed lisinopril 40 mg PO DAILY loperamide 2 mg PO DAILY PRN lorazepam 0.5 - 1 mg PO DAILY PRN melatonin 3 mg PO BEDTIME metoprolol succinate ER 100 mg PO DAILY mometasone-formoterol 200-5 mcg/actuation (Dulera) 2 puffs inhalation BID naloxone 4 mg/actuation intranasal omeprazole 40 mg PO DAILY peg 3350-electrolytes 236-22.74-6.74 -5.86 gram 240 mL PO Q10M rosuvastatin 40 mg PO BEDTIME simethicone (Gas Relief (simethicone)) 125 mg PO ONCE trazodone 100 mg PO BEDTIME PRN umeclidinium 62.5 mcg/actuation (Incruse Ellipta) 1 inh inhalation DAILY venlafaxine ER 150 mg PO QAM venlafaxine ER 37.5 mg PO DAILY warfarin 5 mg See Protocol PO DAILY warfarin 2.5 mg See Protocol PO QWEEK HPI HPI BILATERAL OSTEOARTHRITIS OF KNEES: Details: History of Present Illness The patient is a 64-year-old female presenting with right knee pain. The pain has persisted for approximately a year, with a severity of 6 to 8 out of 10, escalating to 10 out of 10 during walking activities. Previous interventions include arthroscopic surgery, cortisone injections, and visco supplementation, all of which failed to alleviate the pain. The patient has moderate osteoarthritis, and prior treatments with corticosteroid injections and visco supplementation were ineffective, likely due to non-intraarticular administration. The patient is on Coumadin for DVT prophylaxis, with a history of pulmonary embolism requiring intensive care. She has been advised to consult her barrel ribs solderer about transitioning to a newer anticoagulant for easier procedural management. Additionally, the patient is under treatment for asthma with a healthcare provider named Winsome. Pain Description - Onset: Approximately one year ago - Severity: 6 to 8/10, increasing to 10/10 with walking - Location: Right knee - Exacerbating factors: Walking - Previous interventions: Arthroscopic surgery, cortisone injections, visco supplementation Physical Exam - Appears afebrile. - Alert and oriented. - Mood and affect appropriate. - Follows and participates in conversation appropriately. Pain Management - Affect: Pain significantly impacts daily activities, causing severe discomfort during walking. - Analgesia: Previous use of Percocet provided relief, but not currently prescribed. - Adverse Effects: Edibles led to weight gain, prompting discontinuation. - Activities of Daily Living: Pain limits mobility, particularly during walking. - Aberrant Drug Related Behaviors: None reported. COUNTS INCLUDE 234 BEDS AT THE [facility] Medical History (Updated 12/30/24 @ 09:24 by Oren Tong PA-C) Constipation Flatus Colon cancer screening Dysphagia Lipoma of scalp Scalp cyst Depression Elevated cholesterol Atrial dysrhythmia Asthma PERRY (obstructive sleep apnea) History of CVA (cerebrovascular accident) (~2004) Hx pulmonary embolism Factor V Leiden mutation Scalp irritation Scalp lesion DVT (deep venous thrombosis) Hypercoagulable state Hypertension Diabetes mellitus Surgical History (Updated 12/30/24 @ 08:35 by JAYNE Ferrara) Hx of surgical procedure (12/16/24) Hx of surgical procedure History of endometrial ablation Hx of lumbosacral spine surgery (11/09/22) History of inferior vena caval filter placement (~1978) Hx of right knee surgery History of surgical removal of lesion (~08/27/22) History of excision of lesion History of rotator cuff surgery History of cholecystectomy Family History Maternal Grandmother Breast cancer Sister Breast cancer Social History Household Members: Significant Other Housing: Apartment Are you a primary health care aide to a significant other at home: No Do you presently have visiting nurse or other home services: No Alcohol intake: never Patient Tobacco Use Status: Former Tobacco user Tobacco use type: Cigarette Cigarette Packs Per Day: 0.5 Years Smoked: 1.5 Substance Use Type: Marijuana Current occupational status: disabled Current occupation: disability Current occupational exposures/hazards: No Physical Exam Vital Signs: Last Vital Signs Pulse 86 01/04/25 09:50 Resp 16 01/04/25 09:50 BP 130/60 01/04/25 09:50 Pulse Ox 98 01/04/25 09:50 Oxygen Delivery Method Room Air 01/04/25 09:50 BMI result Body Mass Index 40.4 Results AMB INR Fingerstick AMB INR Fingerstick 3.4 Last Edit by Violette Henson RN on 01/04/25 08:59 interface delay Assessment & Plan Assessment & Plan (1) Current use of anticoagulant therapy: Code(s): Z79.01 - correction (current) use of anticoagulants Category: Medical (2) Arthritis of left knee: Code(s): M17.12 - Unilateral primary osteoarthritis, left knee Category: Medical (3) Arthritis of right knee: Code(s): M17.11 - Unilateral primary osteoarthritis, right knee Category: Medical Plan Plan Patient was informed and verbally consented to the use of an ambient scribe for clinic note documentation during this visit. 1. Right Knee Pain - Plan for x-ray guided corticosteroid injection for the right knee, followed by the left knee two weeks later. - Image-guided injections are expected to improve efficacy. 2. Osteoarthritis - Previous corticosteroid and visco supplementation injections were ineffective. - X-ray guided injections planned for proper intraarticular delivery. 3. Deep Vein Thrombosis (Dvt) - Currently on Coumadin for DVT prophylaxis. - Discuss newer anticoagulants with barrel ribs solderer for easier management. 4. Pulmonary Embolism - History of pulmonary embolism with prior intensive care admission. - Consider newer anticoagulants for better management. 5. Asthma - Managed by healthcare provider Winsome. Discussion Notes I discussed with the patient the plan to perform x-ray guided corticosteroid injections for her knee pain, starting with the right knee and followed by the left knee two weeks later. We talked about the potential benefits of image-guided injections in ensuring proper delivery of the medication. Additionally, I recommended that she discuss with her barrel ribs solderer the possibility of switching to a newer anticoagulant for easier management around procedures. The patient expressed understanding and agreement with the proposed plan. Patient Instructions - Schedule x-ray guided corticosteroid injection for the right knee. - Follow up with barrel ribs solderer to discuss switching to a newer anticoagulant. - Monitor for any changes in symptoms and report them promptly. Coding Level of Care Code New Pt Level 4 (24796) Diagnoses Current use of anticoagulant therapy Z79.01 Arthritis of left knee M17.12 Arthritis of right knee M17.11
[2025-01-04 09:50] VITALS: BP 130/60; PULSE 86; RESP 16; O2SAT 98; BMI 40.4
== END 2025-01-04 11:04 | disposition home or self-care (01) ==
LOC: HO.PMC 09:14
PROVIDERS: PCP Internal Medicine; Visit Provider Internal Medicine
DX: M17.0 Bilateral primary osteoarthritis of knee (principal); Z79.01 Long term (current) use of anticoagulants
CPT/HCPCS: 99204

== ENCOUNTER 2025-02-15 08:57 | Outpatient (AMB) | payer MEDICAID, SELFPAY ==
[2025-02-15 09:08] LABS: Prothrombin Time Whole Bld POC 28.3 sec (11.1-13.5); ~PT, ~INR - Anti Coag Clinic 2.4 (0.9-1.1)
--- NOTE | 2025-02-15 09:18 | MHC.OFFVISCO ---
Intake Intake Visit Reasons: Anticoagulation Allergies metformin Adverse Reaction (Severe, Verified 02/15/25 08:59) Diarrhea aspirin Adverse Reaction (Intermediate, Verified 02/15/25 08:59) Gastrointestinal Upset Medication List - Last Reconciled 02/15/25 by Patricia Holman RN albuterol sulfate 90 mcg/actuation 2 puffs inhalation Q4-6H PRN amitriptyline 25 - 50 mg PO BEDTIME amlodipine 10 mg PO DAILY bisacodyl 5 mg PO ONCE [CBD topical PRN] dapagliflozin propanediol (Farxiga) 10 mg PO DAILY dulaglutide (Trulicity) mg subcut QWEEK empagliflozin (Jardiance) 25 mg PO DAILY fesoterodine ER 4 mg PO DAILY 30 days gabapentin 300 mg PO BID insulin glargine (Lantus Solostar U-100 Insulin) 50 units subcutaneously 2 times a day; insulin lispro (Humalog KwikPen (U-100) Insulin) 24 units subcut TID lancets (FreeStyle Lancets) As directed lisinopril 40 mg PO DAILY loperamide 2 mg PO DAILY PRN lorazepam 0.5 - 1 mg PO DAILY PRN melatonin 3 mg PO BEDTIME metoprolol succinate ER 100 mg PO DAILY mometasone-formoterol 200-5 mcg/actuation (Dulera) 2 puffs inhalation BID naloxone 4 mg/actuation intranasal omeprazole 40 mg PO DAILY peg 3350-electrolytes 236-22.74-6.74 -5.86 gram 240 mL PO Q10M rosuvastatin 40 mg PO BEDTIME simethicone (Gas Relief (simethicone)) 125 mg PO ONCE trazodone 100 mg PO BEDTIME PRN umeclidinium 62.5 mcg/actuation (Incruse Ellipta) 1 inh inhalation DAILY venlafaxine ER 150 mg PO QAM venlafaxine ER 37.5 mg PO DAILY warfarin 5 mg See Protocol PO DAILY warfarin 2.5 mg See Protocol PO QWEEK Nursing Note INR: 2.4 in therapeutic range Medications and supplements reviewed- TULICITY INCREASED over a month ago *pt has lost 11 lbs , has decreased apptite with increase in blood sugar meds Denies any signs and symptoms of bleeding or bruising or clotting. Bleeding, bruising, clotting discussed Nutritional guidance given Dose: 2.5MG X 2 DAYS/ 5MG X 5 DAYS F/U INR: 3 WEEKS Patient verbalizes understanding of instructions given Anti-Coag Initial Assessment Social Hx Patient Tobacco Use Status: Former Tobacco user Tobacco use type: Cigarette Smoking packs per day: 0.5 alcohol intake: never Alcohol intake frequency: does not drink Cardiovascular Hx: HTN and Other Lung Disease HX: Asthma and DVT/PE Endocrine Hx: Diabetes Musculoskeletal Hx: Arthritis and Other Blood Disorder Hx: Hyperlipidemia and Other Neurological Hx: Stroke/TIA Cancer HX: No (NO HX FOR PT - SISTER HX OF BREAST CA AGE 52- LIVING, GRANDMOTHER BREAST CA) Psych. Illness/Depression: Yes (Anxiety/depression on meds ) Coding Level of Care Code Est Patient Level 1 Diagnoses Current use of anticoagulant therapy Z79.01 Assessment & Plan Assessment & Plan (1) Current use of anticoagulant therapy: Code(s): Z79.01 - long term care phlebotomist (current) use of anticoagulants Category: Medical
== END 2025-02-15 09:21 | disposition home or self-care (01) ==
LOC: HO.ACS 08:57
PROVIDERS: PCP Internal Medicine; Visit Provider Internal Medicine Medical Oncology
DX: Z79.01 Long term (current) use of anticoagulants (principal)

== ENCOUNTER → 2025-02-15 08:57 | Outpatient (BNVA) | payer MEDICAID, SELFPAY | PROVIDERS: PCP Internal Medicine; Visit Provider Internal Medicine Medical Oncology | DX: D68.59 Other primary thrombophilia (principal); Z79.01 Long term (current) use of anticoagulants; Z51.81 Encounter for therapeutic drug level monitoring | CPT/HCPCS: 85610; 99211 ==